=== PATIENT | male | born 1960 | race African-American/Black ===

== ENCOUNTER 2020-08-12 15:13 | Inpatient (IN) | payer OTHER ==
[~2020-08-12] VITALS: Ht 190.5 cm; Wt 56.7 kg
[2020-08-12 15:14] VITALS: BP 100/63
--- NOTE | 2020-08-12 15:32 | NUR ---
tried to find out the reason for placement for tube from [facility] but they did not know why it was placed or when. tried speaking with [facility] where pt was before [facility] and they were unable to answer the questions as medical records was closed
--- NOTE | 2020-08-12 16:14 | EKG ---
[address] [address] ELECTROCARDIOGRAM REPORT Name: DARNELL SORENSEN Room #: [facility].#: [id number] Admission: Attend Phys: Discharge: Date of : 58 Report #: [id number] 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 : 1960 Requested By: Jordan Olguin Order Number: [id number] MD: Jules Ritter Measurements Intervals [place] Rate: 143 P: 0 ND: 50 QRS: 43 QRSD: 148 T: 83 QT: 355 QTc: 548 Interpretive Statements Sinus tachycardia vs Atrial Flutter 2:1 block Left bundle branch block Baseline wander in lead(s) V2 No previous ECG available for comparison Electronically Signed On 08-12-2020 16:14:11 SUPERVISOR INSTRUMENT REPAIR by Jules Ritter [email or web address] <ELECTRONICALLY SIGNED> By: Jules Ritter MD, [facility] 08/12/20 1614 09 1610 Jules Ritter MD, FACC /EPI
[2020-08-12 16:23] LABS: ABSOLUTE NEUTROPHILS 6.6 thou/uL (1.4-8.2); BASOPHILS 0.3 % (0.0-2.0); EOSINOPHILS 0.5 % (0.0-3.0); HEMATOCRIT 38.3 % (42.0-52.0); HEMOGLOBIN 12.4 gm/dL (14.0-18.0); LYMPHOCYTES 13.5 % (24.0-44.0); MCH 26.1 pg (26.0-34.0); MCHC 32.3 g/dL (28.0-37.0); MONOCYTES 7.2 % (1.0-8.0); PLATELET COUNT 240 thou/uL (150-400); POLYS 78.5 % (36.0-66.0); RBC 4.72 mil/uL (4.50-6.00); RDW 16.9 % (10.5-14.5); WBC 8.4 thou/uL (4.0-11.0)
[2020-08-12 16:30] LABS: CALCIUM 9.4 mg/dL (8.5-10.1); CREATININE 0.7 mg/dL (0.7-1.3); POTASSIUM 4.5 mmol/L (3.5-5.1)
[2020-08-12 16:35] LABS: TOTAL BILIRUBIN 0.6 mg/dL (0.2-1.0); TOTAL PROTEIN 7.9 g/dL (6.4-8.2)
[2020-08-12 16:38] LABS: URINE BILIRUBIN NEGATIVE (Negative); URINE BLOOD 2+ (Negative); URINE CLARITY CLEAR; URINE COLOR YELLOW; URINE GLUCOSE-RANDOM* NEGATIVE (Negative); URINE KETONES NEGATIVE (Negative); URINE NITRITE-REFLEX NEGATIVE (Negative); URINE PROTEIN (DIPSTICK) 1+ (Negative); URINE SPECIFIC GRAVITY 1.025 (1.005-1.035)
[2020-08-12 16:41] LABS: URINE LEUKOCYTES-REFLEX 2+ (Negative)
[2020-08-12 16:46] LABS: CASTS None Seen /LPF (None Seen); SQUAMOUS 0-3 Few /LPF (0-3); URINE WBC-REFLEX >25 Many /HPF (0-5); YEAST-REFLEX Present (None Seen)
[2020-08-12 16:47] LABS: URINE RBC 0-2 Rare /HPF (0-2)
[2020-08-12 16:48] LABS: CRYSTALS None Seen /LPF (None Seen)
[2020-08-12] MEDS ORDERED: TYLENOL325 MG PER TUBE (17:10)
[2020-08-12] MEDS ORDERED: CHILDREN'S ASPI81 MG PER TUBE (17:11)
[2020-08-12] MEDS ORDERED: LIORESAL 10 MG10 MG PER TUBE (17:11)
[2020-08-12] MEDS ORDERED: BACLOFEN5 MG PER TUBE (17:12)
[2020-08-12] MEDS ORDERED: ENOXAPARIN40 MG/0.4 SUBQ (17:12)
[2020-08-12] MEDS ORDERED: ENULOSE10 GM/15 M PER TUBE (17:13)
[2020-08-12] MEDS ORDERED: GUAIFENESIN DM S5 ML PER TUBE (17:15)
[2020-08-12] MEDS ORDERED: METOCLOPRAM5 MG/5 M2 PER TUBE (17:16)
[2020-08-12] MEDS ORDERED: MIDODRINE HCL10 MG PER TUBE ×2 (17:16→17:17)
[2020-08-12] MEDS ORDERED: MULTIVITAM9 MG/15 M1 PER TUBE ×2 (17:18)
[2020-08-12] MEDS ORDERED: FISH OIL 1,001000 M3 PER TUBE (17:18)
[2020-08-12] MEDS ORDERED: ONDANSETRON HCL4 M2 PER TUBE (17:19)
[2020-08-12] MEDS ORDERED: PREVACID30 MG PER TUBE (17:20)
[2020-08-12] MEDS ORDERED: ULTRAM 50MG TAB50 MG PER TUBE (17:21)
[2020-08-12 19:36] LABS: FOLIC ACID 17.2 ng/mL (8.6-58.9)
[2020-08-12 20:33] VITALS: BP 95/59
[2020-08-12 21:13] VITALS: BP 98/66
[2020-08-12 21:45] VITALS: BP 96/53
[2020-08-13 00:09] VITALS: BP 87/52
--- NOTE | 2020-08-13 05:55 | NUR ---
PT ARRIVED TO ROOM 210 FROM ER, ON BED REST WITH Q 2 HR TURNS, C/O ABD PAIN GIVEN PRN PAIN MEDS THRU THE NOC, NPO FOR POSSIBLE SURG. SPOKE WITH MOTHER AND UPDATED ON CONDITION, STATES SHE WAS TAKING CARE OF PT TILL HE WAS HOSPITALIZED IN [place], PLAN SWALLOW EVAL AND POSSIBLE VIDEO SWALLOW, G TUBE CAPPED FLUIDS INFUSING THRU L UPPER ARM PICC CXR DONE TO VERIFY PLACEMENT,VSS WILL CON'T TO MONITOR PER PPOC,
[2020-08-13 07:11] VITALS: BP 96/53
[2020-08-13 07:13] LABS: ABSOLUTE NEUTROPHILS 3.1 thou/uL (1.4-8.2); BASOPHILS 0.8 % (0.0-2.0); EOSINOPHILS 1.8 % (0.0-3.0); HEMOGLOBIN 9.3 gm/dL (14.0-18.0); LYMPHOCYTES 21.9 % (24.0-44.0); MCH 26.2 pg (26.0-34.0); MCV 81.9 fL (80.0-100.0); MONOCYTES 8.1 % (1.0-8.0); PLATELET COUNT 170 thou/uL (150-400); POLYS 67.4 % (36.0-66.0); RBC 3.54 mil/uL (4.50-6.00); RDW 16.7 % (10.5-14.5); WBC 4.5 thou/uL (4.0-11.0)
[2020-08-13 07:27] LABS: CREATININE 0.6 mg/dL (0.7-1.3); MAGNESIUM 1.7 mg/dL (1.8-2.4); POTASSIUM 4.4 mmol/L (3.5-5.1)
[2020-08-13 07:36] LABS: CALCIUM 7.4 mg/dL (8.5-10.1)
--- NOTE | 2020-08-13 11:27 | NUR ---
If able to use pts feeding tube recommend start jevity 1.5 at goal of 55ml/hr
[2020-08-13 12:05] VITALS: BP 108/70
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
[2020-08-13 15:29] VITALS: BP 91/56
[2020-08-13 19:33] VITALS: BP 93/58
--- NOTE | 2020-08-13 19:47 | NUR ---
RECEIVED PT'S CARE AROUND 0735; PT. ON BED; ALERT; DURING AM ASSESSMENT AOX4; FORGETFUL THROUGH THE DAY; AM MEDICATIONS GIVEN; CRITICAL LOW CA; PHYSICIAN NOTIFIED; LOW MG; PHYSICIAN NOTIFIED; NOTICED DX SEPTIS; NO SANTIAGO IN ORDER TO MEASURE ACCURATE OUTPUT; PHYSICIAN NOTIFIED; ORDERS RECEIVED; LOW BG DURING AM AND LUNCH TIME; PRN MEDICATION IV GIVEN; PHYSICIAN NOTIFIED; ORDERS ON PLACED; ST ON THE MONITOR; PER SURGEON OK TO START FEEDINGS; DR. VICENTE NOTIFIED; FEEDING STARTED BASED ON DIETITIAN RECOMENDATIONS; FEEDING STARTED AT 35 ML/H AT 1800; RECEIVED CALL FROM MOTHER; UPDATED ABOUT POC AND PT'S HEALTH STATUS; PT. REQUESTED TO CALL MOM AND BROTHER; EDUCATED ABOUT VISITOR POLICY; REQUESTED DESIGNATED VISITOR MOTHER; SUPERVISOR TRAVEL INFORMATION CENTER [facility]; PPN D/C AFTER ONE HOUR OF FEEDING STARTED; PASSED ON REPORT; ASSESSMENT CHARGED; FOLLOWING POC; PASSED ON REPORT;
[2020-08-14 03:52] VITALS: BP 100/58
[2020-08-14 07:00] VITALS: BP 108/55
--- NOTE | 2020-08-14 07:56 | NUR ---
RECIEVED CARE OF THIS PATIENT AT 1900. PATIENT ALERT AND ORIENTED X4. BRI IS A QUADPLEGIC. HAS LITTLE USE OF HIS L HAND. HAS A BILLIARY DRAIN AND A SANTIAGO. REMAINS NPO. HAS PRAFA BOOTS ON. HAS 2L PICC IN HIS CASEY. PEG WITH JEVITY 1.5 AT 45. C/O PAIN, MED GIVEN. SLEPT OFF AND ON DURING NIGHT.
--- NOTE | 2020-08-14 10:04 | NUR ---
SPOKE WITH CURRENCY COUNTER ([place]) FROM [facility] WHO CONFIRMED THE PATIENT WAS EVALUATED ON 04/20/21 FOR SWALLOW WITH RECOMMENDATIONS TO CONTINUE TUBE FEEDINGS PRIMARY SOURCE OF NUTRITIONAL INTAKE BUT ALLOW SIPS OF LIQUID FOR COMFORT. THEN SPOKE WITH LINNETTE AT [facility] WHO ALSO CONFIRMED THESE RECOMMENDATIONS. THE PATIENT WAS NPO BUT ALLOWED SIPS OF WATER BY NURSING AT HIS SNF BUT WAS DOING TRIALS OF PUREED WITH SPEECH PATHOLOGIST ONLY. THE PATIENT WILL BE KEPT NPO DURING THIS LOS AND WILL CONTINUE THERAPEUTIC TRIALS WITH ST. A VIDEOSWALLOW WOULD BE RECOMMENDED BUT MAY PROVE DIFFICULT DUE TO KYPHOTIC POSITIONING CHALLENGES.
[2020-08-14 10:16] LABS: HEMATOCRIT 34.8 % (42.0-52.0); HEMOGLOBIN 11.1 gm/dL (14.0-18.0); MCH 25.9 pg (26.0-34.0); MCHC 31.8 g/dL (28.0-37.0); MCV 81.5 fL (80.0-100.0); RBC 4.27 mil/uL (4.50-6.00); RDW 16.5 % (10.5-14.5); WBC 5.2 thou/uL (4.0-11.0)
[2020-08-14 10:45] LABS: % SATURATION 7 % (20-39); ALBUMIN 2.3 g/dL (3.4-5.0); CALCIUM 8.3 mg/dL (8.5-10.1); CREATININE 0.6 mg/dL (0.7-1.3); IRON 13 ug/dL (65-175); MAGNESIUM 2.1 mg/dL (1.8-2.4); POTASSIUM 3.4 mmol/L (3.5-5.1); TIBC 180 ug/dL (250-450); TOTAL BILIRUBIN 0.4 mg/dL (0.2-1.0); TOTAL PROTEIN 6.3 g/dL (6.4-8.2)
[2020-08-14 11:30] VITALS: BP 128/59; BP 128/62
--- NOTE | 2020-08-14 13:55 | NUR ---
[facility] being updated today via phone and fax. Advised of possible weekend dc. [employer] form on the chart as he will need ambulance transport. Pt has been restarted on his enteral feedings and off tpn. Picc line to be dc'd at in. Pt will need ins auth for SNF. DC community development planner to submit per [facility] today and request [place] due the same. Covid test is pending. Pt's mother will need confirmation call on day of dc. Care team updated. Records were rec'd from both [facility] and [facility]. Will follow.
--- NOTE | 2020-08-14 14:11 | NUR ---
[facility]ED CL[facility] SPOKE WITH MICHAEL SHE SAID [facility]OTH IN [place] SHE WILL GIVE THEM THE MESSAGE TO SUBMIT FOR AUTH FOR SKILLED PT DC READY OVER THE WEEKEND. ALSO FAXED REFERRAL TO [facility] RECEIVED CONFIRMATION.
[2020-08-14 16:00] VITALS: BP 124/62
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
[2020-08-14 20:45] VITALS: BP 114/63
--- NOTE | 2020-08-15 03:42 | NUR ---
Assumed pt care at 1900. Pt is alert and laying in bed. No sign of distress noted in pt. Pt verbalizes pain. Pain med administered upon request. Fall precaution in place. Vital signs stable. Assessment completed and documented. Scheduled meds administered to pt. No acute events overnight. Continue to monitor. No further needs at this time.
[2020-08-15 04:45] VITALS: BP 143/78
[2020-08-15 06:00] LABS: HEMATOCRIT 33.9 % (42.0-52.0); HEMOGLOBIN 10.9 gm/dL (14.0-18.0); MCH 26.4 pg (26.0-34.0); MCHC 32.2 g/dL (28.0-37.0); MCV 82.2 fL (80.0-100.0); RBC 4.12 mil/uL (4.50-6.00); RDW 16.9 % (10.5-14.5); WBC 5.8 thou/uL (4.0-11.0)
[2020-08-15 06:13] LABS: CALCIUM 8.9 mg/dL (8.5-10.1); CREATININE 0.6 mg/dL (0.7-1.3); POTASSIUM 3.7 mmol/L (3.5-5.1)
[2020-08-15 07:18] VITALS: BP 115/64
--- NOTE | 2020-08-15 11:56 | NUR ---
Assumed pt care at 7am.Pt in bed resting.Assessment completed.vss.Pt c/o knees pain rated 3/10.Fentanyl ivp given with relief.Repositioned pt q2h for comfort.Tube feeding in progress.No further c/o at present will continue to monitor.
[2020-08-15 15:01] VITALS: BP 112/73
[2020-08-15 20:38] VITALS: BP 119/67
[2020-08-16 05:01] VITALS: BP 104/57
--- NOTE | 2020-08-16 05:34 | NUR ---
Pt. rested quietly at intervals during the night when checked on during frequent rounds. He has been given ivp pain meds (see emar) with some relief of pain noted. G-tube is patent. Pt. turned and repositioned and frequent mouth care given. Bed alarm is on.
[2020-08-16 06:00] LABS: HEMATOCRIT 34.2 % (42.0-52.0); HEMOGLOBIN 10.9 gm/dL (14.0-18.0); MCH 26.4 pg (26.0-34.0); MCHC 31.9 g/dL (28.0-37.0); MCV 82.8 fL (80.0-100.0); RBC 4.13 mil/uL (4.50-6.00); RDW 17.4 % (10.5-14.5); WBC 8.2 thou/uL (4.0-11.0)
[2020-08-16 06:45] LABS: CREATININE 0.6 mg/dL (0.7-1.3); MAGNESIUM 2.3 mg/dL (1.8-2.4); POTASSIUM 3.7 mmol/L (3.5-5.1)
[2020-08-16 07:29] VITALS: BP 96/51
--- NOTE | 2020-08-16 13:54 | NUR ---
Assumed pt care at 7am.Pt in bed sound asleep till 8a.Assessment completed.vss oral care done and lip balm applied.Repositioned pt for comfort q2h in bed. Pt c/o back pain rated 3/10.Fentanyl ivp given with relief.Dr Burns and Reena here,no new order noted.Mom here to vist and Dr Burns updated her. Pt will possibly dc to [place] in am if stable.No further c/o.Will continue to monitor.
[2020-08-16 15:07] VITALS: BP 96/53
[2020-08-16 20:07] VITALS: BP 98/62
--- NOTE | 2020-08-17 05:00 | NUR ---
Pt. rested in bed and becomes inpatient at times. He will yell out at times with needs. Pt. able to use call light and was encouraged to do so. He constantly is asking for water and oral mouth care given frequently. G-tube plugged this am and unable to unplug it. Gloria WILKES called and notified. Dressing to biliary drain and peg tube site cleansed with normal saline and clean dressing applied. Areas had small amount of yellowish colored drainage. Pt. turned and repositioned. Bed alarm is on.
[2020-08-17 05:26] LABS: HEMATOCRIT 33.9 % (42.0-52.0); HEMOGLOBIN 10.8 gm/dL (14.0-18.0); MCH 26.5 pg (26.0-34.0); MCV 82.7 fL (80.0-100.0); RBC 4.1 mil/uL (4.50-6.00); RDW 17.1 % (10.5-14.5); WBC 8.3 thou/uL (4.0-11.0)
[2020-08-17 05:53] LABS: CALCIUM 8.7 mg/dL (8.5-10.1); CREATININE 0.5 mg/dL (0.7-1.3); POTASSIUM 3.6 mmol/L (3.5-5.1)
[2020-08-17 07:05] VITALS: BP 102/62
--- NOTE | 2020-08-17 08:05 | NUR ---
Call placed to Dr. Valles in referance of g-tube being pugged.
--- NOTE | 2020-08-17 08:35 | NUR ---
Consider discontinue ivf and start water flushes of 250 ml every 6hr
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
--- NOTE | 2020-08-17 13:32 | NUR ---
Assumed pt care this am, VS stable received NPO with a FC, Gtube draing green liquid, J tube that is plugged since pm shift ad per om nurse. J tube could not be flushed. Q2 turns done, pt is very contracted and very limited movement. Informed surgeons, seen by Dr. Barlow consult for IR for J tube exchange. NPO maintained, tube feeding on hold since route is not available. Wound care done and dressing change made.
--- NOTE | 2020-08-17 14:45 | NUR ---
UPDATES SENT TO [facility] FOR SKILLED AUTH FOR PT TO RETURN TO [facility]. PT REMAINS NPO AND IS DOING TRIALS WITH [facility] FOLLOWING REGARDING DC PLANNING.
[2020-08-17 15:42] VITALS: BP 112/67
[2020-08-17 20:27] VITALS: BP 116/68
--- NOTE | 2020-08-18 04:26 | NUR ---
PT AWAKE AND ALERT. MOSTLY C/O PAIN TO RIGHT KNEE AND LEG.REPOSITIONING PROVIDED-NIECY MATTRESS. SANTIAGO TO D/D WITH DARK YELLOW OUTPUT.C/O DRY MOUTH, ORAL CARE PROVIDED.IVF INFUSING. FEEDING TUBE REMAINS PLUGGED UP.BILIARY DRAIN PATENT-GREENISH OUTPUT. AFEBRILE.
[2020-08-18 05:05] LABS: CALCIUM 8.9 mg/dL (8.5-10.1); CREATININE 0.6 mg/dL (0.7-1.3); MAGNESIUM 1.7 mg/dL (1.8-2.4); POTASSIUM 3.3 mmol/L (3.5-5.1)
[2020-08-18 05:07] LABS: HEMATOCRIT 32.5 % (42.0-52.0); HEMOGLOBIN 10.2 gm/dL (14.0-18.0); MCH 26.2 pg (26.0-34.0); MCHC 31.4 g/dL (28.0-37.0); MCV 83.3 fL (80.0-100.0); RBC 3.9 mil/uL (4.50-6.00); RDW 17.1 % (10.5-14.5); WBC 5.3 thou/uL (4.0-11.0)
[2020-08-18 07:53] VITALS: BP 100/57
--- NOTE | 2020-08-18 13:18 | NUR ---
CM SPOKE WITH RAYSA WITH [facility] AND SHE INIDCATED THAT BASED ON THE CLIICAL THEY HAD RECEIVED SHE WOULDN'T AUTH SKILLED THAT PT DOESN'T APPEAR TO HAVE A SKILLABLE NEED. SHE INDICATED THAT EITHER THERAPY COULD SEE PT AND EVAL COULD BE FAXED TO HER FOR REVIEW OR PT COULD DC TO [facility] AND HAVE EVALS DONE THERE AND THEY COULD PERSUE AUTH. PT EVAL ORDERED CM TO FAX ONCE ENTERED. CM TO FOLLOW INDICATED WITH DC PLANNING.
[2020-08-18 15:53] VITALS: BP 131/64
[2020-08-18 20:08] VITALS: BP 115/68
--- NOTE | 2020-08-18 20:09 | NUR ---
Received awake on bed. Due medications given as prescribed. Vital signs stable. On room air. On telemetry; no complains and signs of chest pain, crushing sensation and heaviness. Assisted in ADLS. On blood sugar monitoring, taken and recorded accordingly; with low blood sugar this AM- given D50- rechecked WNL. Mouth care done; on nothing per orem- pt aware. With J tube- still clogged- IR RN seen patient today, able to unclog this PM- Tube feeding resumed as ordered. With biliary drain in place- output measured and recorded accordingly. Wuth sands in place- output measured and recorded accordingly; draining well. With 2 lumen PICC line at L upper arm in place- NS at 100cc/hr, infusing well. With redness at sacrum- pt turned regularly- Z guard applied as ordered. Complained of pain, due PRN pain meds given as prescribed. IV correction of MG and K done as ordered. Pt seen and examined by [facility] hospitalist re: plan for diet- as per Dr Burns to leave current regimen for patient, may do family meeting re: plan of care. To continue monitoring patient.
[2020-08-19 07:28] VITALS: BP 115/70
--- NOTE | 2020-08-19 09:13 | NUR ---
ASSUME CARE 1900. PT/VITALS STABLE. INTERMITTENT GENERALIZED PAIN NOTED. ASSESSMENT CHARTED. POOR PROGRESS WITH HEALING. JEVITY 1.5 AT GOAL RATE 55NL/PT TOLERAING WELL. BILIARY DRAINAGE AT 750 THROUGH THE NIGHT. SR ON MONITOR. PLAN IS FOR MD TO DISCUSS WITH FAMILY ABOUT QUALITY OF LIFE AND POC. WILL CONTIUE TO MONITOR AND FOLLOW WITH POC
--- NOTE | 2020-08-19 11:03 | NUR ---
RAYSA WITH [facility] CALLED THIS AM AND INDICATED THAT THEY WANTED A [facility]. CM PROVIDED PHYSICIAN WITH INFO TO CALL THE PEER TO PEER WELL A PRINT OUT OF THE PT EVAL FROM YESTERDAY. HE'S TO CALL [facility] NEEDS TO BE CALLED BY 2:13PM TODAY. MU FOLLOWING REGARDIGN DC PLANNING. PT WILL RETURN TO [facility] THIS DAY.
[2020-08-19 14:46] VITALS: BP 117/75
[2020-08-19] MEDS ORDERED: IRON325 PO (15:06)
--- NOTE | 2020-08-19 16:10 | NUR ---
PT DISCHARGING TODAY TO [facility] FAXED DC ORDERS/SUMMARY TO FACILITY SPOKE WITH AKIRA IN ADM SHE RECEIVED ORDERS AND ARRANGED TRANSPORT BY [facility] FOR [phone]. NOTIFIED PT'S MTR OF DC AND TIME OF TRANSPORT. UNIT NOTIFIED AND CHART COPY PER US. RN TO CALL REPORT TO [phone].
--- NOTE | 2020-08-19 20:33 | NUR ---
Received awake on bed. Due medications given as prescribed. On telemetry; no complains and signs of chest pain, crushing sensation and heaviness. Assisted in ADLs. Oral care done. On strict NPO- pt reminded and aware. On blood sugar monitoring, taken and recorded accordingly. With J tube in place, flushing well; on Jevity 1.5 at 55mls/hr, infusing well; H20 flushes done as ordered. With biliary drain in place- output measured and recorded accordingly. With sands in place, draining well; output measured and recorded accordingly. With L upper arm PICC line in place, NS at 100cc/hr, infusing well. With wound at sacrum, Z guard applied, pt turned regularly; wound photo taken today. Complained of pain, due PRN pain meds given as prescribed. Pt seen and examined by Dr Burns, discharge orders made- CM aware. Verified with Dr Burns re: PICC- to remove prior to discharged- removed as per protocol; no bleeding noted post removal. Transport set up at 1700; pt's mother aware as per CM. Pt brought out of the unit via stretcher with his belongings; transferred safely. Pt fetched by transport staff, chart copy given. Report given to Staff [facility] [place]. Patient discharged.
== END 2020-08-19 19:38 | DRG 871 ==
LOC: ER 15:13 → 2N 17:57 → EROBS 17:57 → 2N 17:57 → EDBD 17:57 → 2N 21:21 → 4W 08-15 07:15
PROVIDERS: Nurse Practitioner; Physician Assistant; ADMIT Internal Medicine; ATTEND Internal Medicine
DX: A41.9 Sepsis, unspecified organism (principal); E43 Unspecified severe protein-calorie malnutrition; R53.2 Functional quadriplegia; K94.13 Enterostomy malfunction; I69.359 Hemiplegia and hemiparesis following cerebral infarction affecting unspecified side; R65.20 Severe sepsis without septic shock; F41.9 Anxiety disorder, unspecified; N30.90 Cystitis, unspecified without hematuria; R13.10 Dysphagia, unspecified; L89.152 Pressure ulcer of sacral region, stage 2; E83.42 Hypomagnesemia; E83.51 Hypocalcemia; D64.9 Anemia, unspecified; Y83.8 Other surgical procedures as the cause of abnormal reaction of the patient, or of later complication, without mention of misadventure at the time of the procedure; Y82.8 Other medical devices associated with adverse incidents; Z79.82 Long term (current) use of aspirin; Z79.899 Other long term (current) drug therapy; Z86.718 Personal history of other venous thrombosis and embolism; Z90.49 Acquired absence of other specified parts of digestive tract; Y92.89 Other specified places as the place of occurrence of the external cause; Z99.3 Dependence on wheelchair; Z20.822 Contact with and (suspected) exposure to COVID-19
CPT/HCPCS: 10045; 10047; 10081

== ENCOUNTER 2020-08-20 10:55 | Emergency (ER) | payer OTHER ==
[~2020-08-20] VITALS: Ht 190.5 cm; Wt 68.0 kg
[~2020-08-20 10:55] MED LIST: BACLOFEN5 MG PER TUBE; CHILDREN'S ASPI81 MG PER TUBE; ENOXAPARIN40 MG/0.4 SUBQ; ENULOSE10 GM/15 M PER TUBE; FISH OIL 1,001000 M3 PER TUBE; GUAIFENESIN DM S5 ML PER TUBE; IRON325 PO; LIORESAL 10 MG10 MG PER TUBE; METOCLOPRAM5 MG/5 M2 PER TUBE; MIDODRINE HCL10 MG PER TUBE; MULTIVITAM9 MG/15 M1 PER TUBE; ONDANSETRON HCL4 M2 PER TUBE; PREVACID30 MG PER TUBE; TYLENOL325 MG PER TUBE; ULTRAM 50MG TAB50 MG PER TUBE
[2020-08-20 12:42] VITALS: BP 109/60
== END 2020-08-20 17:20 | disposition home or self-care (01) ==
LOC: ER 10:55
DX: K94.23 Gastrostomy malfunction (principal); I50.9 Heart failure, unspecified; Z79.82 Long term (current) use of aspirin; Z79.899 Other long term (current) drug therapy

== ENCOUNTER 2020-08-25 15:05 | Inpatient (IN) | payer OTHER ==
[~2020-08-25] VITALS: Ht 190.5 cm; Wt 56.8 kg
[2020-08-25 15:05] VITALS: BP 94/66
[2020-08-25 15:56] LABS: ABSOLUTE NEUTROPHILS 9.7 thou/uL (1.4-8.2); BASOPHILS 0.5 % (0.0-2.0); EOSINOPHILS 0.1 % (0.0-3.0); HEMATOCRIT 44.9 % (42.0-52.0); HEMOGLOBIN 14.8 gm/dL (14.0-18.0); LYMPHOCYTES 15.9 % (24.0-44.0); MCHC 32.9 g/dL (28.0-37.0); MONOCYTES 8.2 % (1.0-8.0); PLATELET COUNT 732 thou/uL (150-400); POLYS 75.3 % (36.0-66.0); RBC 5.47 mil/uL (4.50-6.00); RDW 16.7 % (10.5-14.5); WBC 12.9 thou/uL (4.0-11.0)
[2020-08-25 16:06] LABS: CALCIUM 10.2 mg/dL (8.5-10.1); CREATININE 1.3 mg/dL (0.7-1.3)
[2020-08-25 16:12] LABS: ALBUMIN 3.1 g/dL (3.4-5.0); TOTAL BILIRUBIN 0.6 mg/dL (0.2-1.0); TOTAL PROTEIN 9.9 g/dL (6.4-8.2)
[2020-08-25 17:19] LABS: URINE BILIRUBIN NEGATIVE (Negative); URINE BLOOD 3+ (Negative); URINE CLARITY CLEAR; URINE COLOR YELLOW; URINE GLUCOSE-RANDOM* NEGATIVE (Negative); URINE KETONES NEGATIVE (Negative); URINE NITRITE-REFLEX NEGATIVE (Negative); URINE PROTEIN (DIPSTICK) 3+ (Negative); URINE SPECIFIC GRAVITY >= 1.030 (1.005-1.035)
[2020-08-25 17:20] LABS: URINE LEUKOCYTES-REFLEX 1+ (Negative)
[2020-08-25 17:51] LABS: CASTS None Seen /LPF (None Seen); CRYSTALS None Seen /LPF (None Seen); MUCUS 0-3 Light strn/LPF (None Seen); SQUAMOUS 0-3 Few /LPF (0-3); URINE RBC >20 Many /HPF (0-2); URINE WBC-REFLEX >25 Many /HPF (0-5)
[2020-08-25 19:46] VITALS: BP 94/59
[2020-08-25 20:11] VITALS: BP 84/40
[2020-08-26] VITALS: BP 92/55
[2020-08-26 02:10] LABS: HEMATOCRIT 39.7 % (42.0-52.0); MCH 25.9 pg (26.0-34.0); MCHC 31.3 g/dL (28.0-37.0); MCV 82.8 fL (80.0-100.0); RBC 4.8 mil/uL (4.50-6.00); RDW 16.1 % (10.5-14.5); WBC 9.2 thou/uL (4.0-11.0)
[2020-08-26 02:15] LABS: ALBUMIN 2.6 g/dL (3.4-5.0); CALCIUM 8.4 mg/dL (8.5-10.1); CREATININE 1.1 mg/dL (0.7-1.3); POTASSIUM 4.2 mmol/L (3.5-5.1); TOTAL BILIRUBIN 0.5 mg/dL (0.2-1.0); TOTAL PROTEIN 7.5 g/dL (6.4-8.2)
[2020-08-26 02:31] LABS: HEMOGLOBIN 12.4 gm/dL (14.0-18.0)
[2020-08-26 04:33] VITALS: BP 116/68
--- NOTE | 2020-08-26 07:17 | EKG ---
[address] [address] ELECTROCARDIOGRAM REPORT Name: DARNELL SORENSEN Room #: 210-P ADM IN M.R.#: [id number] Admission: 08/25/20 Attend Phys: Hieu Burns MD Discharge: Date of : 58 Report #: [id number] [facility] ED Test Date: 2020-08-25 Test Time: 15:34:58 Pat Name: DARNELL SORENSEN Department: Room: 210 Gender: M Practice Director: CAMILLA : 1960 Requested By: Eugene Stiles Order Number: [id number] MD: Jules Ritter Measurements Intervals [place] Rate: 140 P: 81 ME: 117 QRS: 75 QRSD: 133 T: 94 QT: 394 QTc: 602 Interpretive Statements Sinus tachycardia Vs. Atrial FLutter Left atrial enlargement IVCD, consider atypical LBBB Compared to ECG 08/12/2020 16:10:03 Atrial abnormality now present Electronically Signed On 08-26-2020 7:16:51 BUTTON BUTTONHOLE MARKER by Jules Ritter [email or web address] <ELECTRONICALLY SIGNED> By: Jules Ritter MD, [facility] 08/26/20 0716 1534 1534 Jules Ritter MD, [facility] /EPI
[2020-08-26 07:45] VITALS: BP 131/88
--- NOTE | 2020-08-26 10:34 | NUR ---
DR GUZMAN MADE ROUNDS THIS AM AND INFORMED THIS NURSE THAT THE GTUBE NEEDS TO BE SECURED TO ABDOMEN WITH TAPE, TUBE SECURED AT THIS TIME AND DRESSING PROTECTING THE SKIN. PT WAS REPOSITIONED AND DR HAD NO CONCERNS REGARDING FIRM ABDOMEN, PT HAD A LIGHT COLORED STOOL THIS AM AND BOWEL SOUNDS ARE ACTIVE.
[2020-08-26 12:00] VITALS: BP 117/67
--- NOTE | 2020-08-26 12:01 | NUR ---
Case opened to follow for dc planning. Pt known to cm from recent admission and return to [facility]. His insurance denied SNF auth request and the pt is living there as a alf care resident. He is A&Ox 3 this morning and notes his brother Kingsley will be in to visit today and his is his dpoa for hc. He also confirms that his mother Nikolay is an emergency contact as well as he lived with her prior to his admission to [facility] and prior stay at [facility] with a CVA. He is being treated for severe sepsis/uti/gtube dysfunction. Surgery has seen him this morning and adjusted his gtube. Pt gets enteral feedings through his J tube. Dc airport planner to fax updated to [facility]. Message left with admissions to confirm they are holding his bed. He is agreeable to returning there when medically stable. Will follow.
--- NOTE | 2020-08-26 13:29 | NUR ---
FAXED CLINICAL UPDATES TO [facility]. SONNY CONFIRM THEY RECEIVED. BAUDETTE N & R: P [phone]; FAX [phone]
[2020-08-26 15:30] VITALS: BP 135/74
[2020-08-26] MEDS ORDERED: XALATAN2.5 ML OPHTHALMIC (15:49)
--- NOTE | 2020-08-26 18:03 | NUR ---
PT RESTING AT THIS TIME, G TUBE AND J TUBE SECURED, PT HAD A NEW CATHETER PLACED D/T CATHETER LEAKING AND CAUSING PAIN TO PT. PT TOLERATED INSERTION WELL, BAG DEPENDENT AND URINE DARK YELLOW COLOR. PT NOTED TO HAVE A OPEN AREA TO COCCYX THE SIZE OF A DIME AND A FLUID FILLED BLISTER TO LEFT THIGH, PILLOWS USED FOR REPOSITIONING AND PT HAS BEEN REPOSITIONED Q2HRS. PT FAMILY UPDATED. PT ALERT X3 AND ABLE TO VOICE WANTS AND CONCERNS, PT USES CALL LIGHT APPROPRIATLY. ICE CHIPS TOLERATED WILL. G TUBE CONT TO DRAIN PCP AWARE.
[2020-08-26 20:12] VITALS: BP 103/66
--- NOTE | 2020-08-26 23:49 | NUR ---
PATIENTS CARE WERE ASSUMED AT SHIFT CHANGE. PATIENT WAS ASSESSED AND MEDS WERE PASSED. PATIENT HAS IMPROVED ALOT SINCE ADMISSION. PATIENT HAD A LARGE BM THIS SHIFT. PATIENT HAS GOOD COMMUNICATION WITH HIS FAMILY. ROUNDS WERE MADE, THE BED IS IN A LOW AND LOCKED POSITION
[2020-08-27] VITALS: BP 100/52
[2020-08-27 05:51] LABS: HEMATOCRIT 31.3 % (42.0-52.0); HEMOGLOBIN 9.8 gm/dL (14.0-18.0); MCH 25.9 pg (26.0-34.0); MCHC 31.3 g/dL (28.0-37.0); MCV 82.5 fL (80.0-100.0); RBC 3.79 mil/uL (4.50-6.00); RDW 16.4 % (10.5-14.5); WBC 8.1 thou/uL (4.0-11.0)
[2020-08-27 06:07] LABS: CALCIUM 8.4 mg/dL (8.5-10.1); CREATININE 0.7 mg/dL (0.7-1.3); MAGNESIUM 2.1 mg/dL (1.8-2.4); POTASSIUM 3.5 mmol/L (3.5-5.1)
[2020-08-27 06:13] VITALS: BP 91/51
[2020-08-27 07:10] VITALS: BP 94/60
--- NOTE | 2020-08-27 09:59 | NUR ---
When surgery ok's use of feeding tube, recommend resume pts usual tf of jevity 1.5 at 55ml/hr. Once Na wnl, recommend dc ivf and start water flushes of 250ml every 6hr
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
[2020-08-27 16:00] VITALS: BP 116/58
--- NOTE | 2020-08-27 16:56 | NUR ---
SPOKE WITH ADM AT [facility] THEY DID NOT RECEIVE UPDATE SO REFAXED TO FACILITY AND SPOKE WITH AKIRA IN ADM SHE RECEIVED UPDATE.
--- NOTE | 2020-08-27 17:19 | NUR ---
Message left with admission at [facility] regarding possible dc back to ltc tomorrow. Pt had covid neg test today. Will fax along with his dc orders tomorrow.
--- NOTE | 2020-08-27 18:27 | NUR ---
TUBE FEEDING STARTED AT 1300 PT TOLERATED WELL UNTIL 1730 WHEN STARTED TO HAVE SMALL AMOUNT OF EMESIS. JULES CALL AND NOTED AND ORDERED FOR TUBE FEEDING TO BE STOPPED, KUB AND COMPAZINE 5MG Q4HRS. DR BOND CALLED AND UPDATED REGARDING COMPLICATIONS, HE STATED TO STOP FEEDING UNTIL THE AM AND HE WILL READRESS AND POSSIBLE CONTRAST STUDY WILL NEED TO BE PERFORMED. PT RECEIVED X1 DOSE OF COMPAZINE AND IS RESTING IN BED AT THIS TIME. CONTINUES TO BE REPOSITIONED FREQUENTLY D/T BREAKDOWN. PT HAS NO HAD ANY MORE EMESIS SINCE ADMIN OF PRN MEDICATION. CALL LIGHT IN REACH.
[2020-08-27 20:30] VITALS: BP 91/51
--- NOTE | 2020-08-28 03:52 | NUR ---
ASSESSMENT: PT REMAIN ALERT AND ORIENT TIMES THREE, FORGETFUL AT TIMES. UPPER AND LOWER EXTREMITEIES CONTRACTED. PRAFO BOOTS ON AMRITA FEET. BILIARY DRAIN NOTED WITH GREENISH OUTPUT, SANTIAGO WITH DK YELLOW URINE. PEG TUBE IS STILL CLAMPED. NO BM THIS SHIFT. TF ON HOLD FOR NOW PER DR. BOND UNTIL REDRESSED TODAY. C/O OF ABD PAIN. TRAMADOL GIVEN TIMES ONE. SLOW PROGRESS TOWARDS DC GOALS.
[2020-08-28 04:45] VITALS: BP 94/54
[2020-08-28 05:00] LABS: CALCIUM 8.2 mg/dL (8.5-10.1); CREATININE 0.7 mg/dL (0.7-1.3); MAGNESIUM 1.7 mg/dL (1.8-2.4); POTASSIUM 3.2 mmol/L (3.5-5.1)
[2020-08-28 05:09] LABS: HEMATOCRIT 28.8 % (42.0-52.0); HEMOGLOBIN 9.1 gm/dL (14.0-18.0); MCH 26.2 pg (26.0-34.0); MCHC 31.5 g/dL (28.0-37.0); MCV 83.2 fL (80.0-100.0); RBC 3.46 mil/uL (4.50-6.00); RDW 16.1 % (10.5-14.5); WBC 4.3 thou/uL (4.0-11.0)
--- NOTE | 2020-08-28 07:10 | EKG ---
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1960 Requested By: Hieu Burns Order Number: [id number] MD: Jules Ritter Measurements Intervals [place] Rate: 85 P: 72 [place]: 172 QRS: 63 QRSD: 164 T: 72 QT: 471 QTc: 561 Interpretive Statements Sinus rhythm LAE, consider biatrial enlargement Left bundle branch block Artifact in lead(s) I,II,aVR,aVF,V1,V2,V3,V4,V5,V6 Compared to ECG 08/27/2020 08:47:28 No significant changes Electronically Signed On 08-28-2020 7:10:39 WOOD PROCESSING WORKER by Jules Ritter [email or web address] <ELECTRONICALLY SIGNED> By: Jules Ritter MD, FACC 08/28/20 0710 0951 Jules Ritter MD, FAC /EPI
--- NOTE | 2020-08-28 07:10 | EKG ---
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1960 Requested By: Hieu Burns Order Number: [id number] MD: Jules Ritter Measurements Intervals [place] Rate: 87 P: 75 [place]: 164 QRS: 52 QRSD: 163 T: 74 QT: 469 QTc: 565 Interpretive Statements Sinus rhythm Probable left atrial enlargement Left bundle branch block Compared to ECG 08/25/2020 15:34:58 Sinus tachycardia no longer present Atrial flutter no longer present Electronically Signed On 08-28-2020 7:10:16 RECRUITING MANAGER by Jules Ritter [email or web address] <ELECTRONICALLY SIGNED> By: Jules Ritter MD, [facility] 08/28/20 0710 0847 0847 Jules Ritter MD, [facility] /EPI
[2020-08-28 07:11] VITALS: BP 86/53
--- NOTE | 2020-08-28 09:31 | NUR ---
FAXED NEGATIVE COVID RESULTS TO [facility]. WILL CONFIRM WITH JAMIA/LIAISON THAT SHE RECEIVED AND PATIENT WILL PROBABLY DISCHARGE TODAY, 08/28/20. [facility] P [phone]; FAX [phone]
--- NOTE | 2020-08-28 11:01 | NUR ---
FAXED CLINICAL UPDATES AND NEGATIVE COVID RESULT TO [facility]. PATIENT WILL NOT DISCHARGE TODAY, 08/28/20 BUT PROBABLE DISCHARGE ON 08/31/20. [facility] P [phone]; FAX [phone]
[2020-08-28 11:15] VITALS: BP 94/58
--- NOTE | 2020-08-28 11:57 | NUR ---
Case discussed with the care team. No weekend discharge anticipated d/t ileus. Tube feedings had been held and will slowly restart. Rachele updated per the dc resource management planner who is also sending a clinical update. Will reassess Monday for dc back to their ltc. Pt is not a candidate for SNF and was denied additional SNF days a couple of weeks ago.
[2020-08-28 15:14] VITALS: BP 116/68
[2020-08-28 20:15] VITALS: BP 116/60
[2020-08-29] VITALS (8 sets, daily range): BP systolic 102–115; BP diastolic 61–69
--- NOTE | 2020-08-29 03:42 | NUR ---
Assumed pt care 1900. Pt is alert and oriented with no sign of distress noted. Assessment completed and documented. Verbalizes pain. Pain med administered accordingly. Pt is stable. Scheduled meds administered to patient. Dsicharge pending. No acute events overnight. Continue to monitor pt. No further needs at this time.
[2020-08-29 06:10] LABS: HEMATOCRIT 32.5 % (42.0-52.0); HEMOGLOBIN 10.5 gm/dL (14.0-18.0); MCH 26.2 pg (26.0-34.0); MCHC 32.2 g/dL (28.0-37.0); MCV 81.3 fL (80.0-100.0); RDW 15.9 % (10.5-14.5); WBC 4.3 thou/uL (4.0-11.0)
[2020-08-29 06:14] LABS: CALCIUM 9.1 mg/dL (8.5-10.1); CREATININE 0.6 mg/dL (0.7-1.3); POTASSIUM 3.6 mmol/L (3.5-5.1)
--- NOTE | 2020-08-29 19:08 | NUR ---
PT CARE ASSUMED AT 0700. ASSESSMENTS CHARTED. MEDICATIONS CHARTED. RIJ 3L PICC. SINUS TACHYCARDIA. SANTIAGO. TUBE FEEDING: VITAL AF; 10 ML/HR. FLUSH 50 ML BID. DISCHARGE MONDAY.
[2020-08-30] VITALS (9 sets, daily range): BP systolic 86–114; BP diastolic 56–69
[2020-08-30 04:22] LABS: HEMATOCRIT 35.6 % (42.0-52.0); HEMOGLOBIN 11.2 gm/dL (14.0-18.0); MCHC 31.4 g/dL (28.0-37.0); MCV 82.8 fL (80.0-100.0); RBC 4.3 mil/uL (4.50-6.00); RDW 16.1 % (10.5-14.5); WBC 4.6 thou/uL (4.0-11.0)
[2020-08-30 04:32] LABS: CALCIUM 9.5 mg/dL (8.5-10.1); CREATININE 0.7 mg/dL (0.7-1.3); MAGNESIUM 1.9 mg/dL (1.8-2.4); POTASSIUM 3.6 mmol/L (3.5-5.1)
--- NOTE | 2020-08-30 16:14 | NUR ---
PT CARE ASSUMED AT 0700. ASSESSMENTS CHARTED. MEDICATIONS CHARTED. RIJ 3L PICC. SANTIAGO. SINUS RHYTHM BBB. TUBE FEEDING; VITAL AF; 10 ML/HR. 50 ML FLUSH Q1HR. BISCODYL SUPPOSITORY GIVEN.
[2020-08-31 04:36] VITALS: BP 84/52
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
[2020-08-31 07:06] VITALS: BP 84/58
[2020-08-31 09:48] LABS: HEMATOCRIT 34.7 % (42.0-52.0); HEMOGLOBIN 10.9 gm/dL (14.0-18.0); MCH 25.8 pg (26.0-34.0); MCHC 31.5 g/dL (28.0-37.0); MCV 81.8 fL (80.0-100.0); RBC 4.24 mil/uL (4.50-6.00); RDW 16.1 % (10.5-14.5)
[2020-08-31 10:00] LABS: CREATININE 0.8 mg/dL (0.7-1.3); MAGNESIUM 1.8 mg/dL (1.8-2.4); POTASSIUM 3.9 mmol/L (3.5-5.1)
[2020-08-31 11:28] VITALS: BP 88/53
[2020-08-31 12:48] LABS: URINE BILIRUBIN 3+ (Negative); URINE BLOOD 2+ (Negative); URINE CLARITY TURBID; URINE GLUCOSE-RANDOM* TRACE (Negative); URINE KETONES NEGATIVE (Negative); URINE NITRITE-REFLEX NEGATIVE (Negative); URINE PROTEIN (DIPSTICK) 2+ (Negative); URINE SPECIFIC GRAVITY 1.025 (1.005-1.035); URINE UROBILINOGEN 0.2 E.U./dl (0.2-1.0)
[2020-08-31 12:49] LABS: ICTOTEST (BILI CONFIRMATORY) Positive (Negative); URINE COLOR DARK YELLOW; URINE LEUKOCYTES-REFLEX 2+ (Negative)
[2020-08-31 13:13] LABS: SQUAMOUS 4-10 Moderate /LPF (0-3)
[2020-08-31 13:23] LABS: AMORPHOUS PHOSPHATES Many /LPF (None Seen); CASTS None Seen /LPF (None Seen); URINE RBC 3-10 Few /HPF (0-2); URINE WBC-REFLEX 0-5 Rare /HPF (0-5)
--- NOTE | 2020-08-31 14:54 | NUR ---
FAXED CLINICAL UPDATE TO [facility] RECEIVED CONFIRMATIN AND SPOKE WITH AKIRA IN ADM.
[2020-08-31 15:06] VITALS: BP 86/52
--- NOTE | 2020-08-31 16:52 | NUR ---
RECEIVED PT'S CARE AROUND 0710; PT. ON BED; RESTING WITH EYES CLOSED; EQUAL CHEST RISING NOTICED; SR ON THE MONITOR; DURING AM ASSESSMENT AOX3; FORGETUFUL; NO C/O PAIN; AM MEDICATIONS GIVEN; REPOSITIONED ON BED; PER ORDER DIET; FEEDING AT 10 ML/H; PT. ABLE TO HAVE A BM THIS AM; 08/31/2020; DR. VICENTE AND DR. BOND NOTIFIED; PER DR. BOND INCREASE FEEDING 10 ML Q4H; WATER FLUSHES 150 ML Q6H; ORDERS ON PLACED; NO RESIDUAL THROUGH THE DAY; EDUCATED ABOUT USING CALL LIGHT IN STEP ON YELLING FOR HELP; ST. UNDERSTANDING; REMAINED NOT ABLE TO HAVE ICE CHIPS FREQUENTLY; ST. UNDERSTANDING; PER DR. BOND GIVE ONE SUPPOSITORY; PRN MEDICATION GIVEN; MONITORING; SR ON THE MONITOR; UA COLLECTED; DR. VICENTE NOTIFIED; ORDERS ON PLACED; D/C FLUIDS; ON INSULIN Q6H; MONITORING; ASSESSMENT CHARGED; FOLLOWING POC; WILL PASS ON REPORT;
[2020-08-31 19:16] VITALS: BP 91/58
[2020-09-01 03:57] VITALS: BP 92/62
--- NOTE | 2020-09-01 06:00 | NUR ---
PT HAS SLEPT AT INTERVALS TONIGHT. 250 CC UO AND 1000 CC FROM DRAIN BRAD TUBE FEEDINGS AT 40 CC PER HOUR WITH WATER FLUSHES. PAIN MED X 1 TONIGHT. BRAD ICE CHIPS. PROGRESSING TOWARD GOALS
[2020-09-01 07:14] LABS: HEMATOCRIT 35.8 % (42.0-52.0); HEMOGLOBIN 11.3 gm/dL (14.0-18.0); MCH 25.8 pg (26.0-34.0); MCHC 31.5 g/dL (28.0-37.0); RBC 4.37 mil/uL (4.50-6.00); RDW 16.3 % (10.5-14.5); WBC 5.3 thou/uL (4.0-11.0)
[2020-09-01 07:23] LABS: CALCIUM 8.7 mg/dL (8.5-10.1); CREATININE 0.7 mg/dL (0.7-1.3); MAGNESIUM 1.9 mg/dL (1.8-2.4); POTASSIUM 3.5 mmol/L (3.5-5.1)
[2020-09-01 07:45] VITALS: BP 93/58
[2020-09-01 11:00] VITALS: BP 85/52
[2020-09-01 16:30] VITALS: BP 92/61
[2020-09-01 19:05] VITALS: BP 99/54
--- NOTE | 2020-09-01 20:26 | NUR ---
RECEIVED PT'S CARE AROUND 0740; PT. ON BED; ALERT; SR ON THE MONITOR; DURING AM ASSESSMENT AOX4; FORGETFUL THROUGH THE DAY; AM MEDICATIONS GIVEN; NO C/O PAIN; REMAINED ABOUT NOT SHOUTING AND USING CALL LIGHT; ST. UNDERSTANDING; NEEDS TO BE REMAINED ABOUT IT; REPOSITIONED FROM SIDE TO SIDE THROUGH THE DAY; NO RESIDUALS OVER FEEDING; RECIVED CALL FROM DR. VICENTE REQUESTING DIETITIAN INPUT FOR FEEDING WITH GOAL RATE 45 ML; DIETITIAN CONTACTED; ORDERS ON PLACED; FEEDING CHANGED CLOSE TO 1800; URINE OUTPUT 250 ML THROUGH THE DAY; PHYSICIAN NOTIFIED; ORDERS RECEIVED; BOLUS STARTED; PASSED ON REPORT; ASSESSMENT CHARGED; FOLLOWING POC; PASSED ON REPORT;
[2020-09-02 04:18] VITALS: BP 90/59
[2020-09-02 07:20] VITALS: BP 93/59
--- NOTE | 2020-09-02 07:54 | NUR ---
PT TF TURNED UP TO 45ML/HR AT GOAL NO RESIDUALS THRU THE NOC, FINISHED WATER FLUSHES AND NS BOLUS WITH OUT MUCH CHANGE IN URINE OUTPUT, VSS, PRN PAIN MEDS GIVEN FOR RIGHT KNEE AND HIP PAIN NEEDED, TURNING AND REPOSITIONED Q 2 HRS AND PRN, PROFO BOOTS ON, REPORT GIVEN TO NEXT SHIFT TO CON'T WITH PPOC.
[2020-09-02 12:00] VITALS: BP 106/60
[2020-09-02] MEDS ORDERED: BACTRIM DS TAB1 EACH PO (12:34)
--- NOTE | 2020-09-02 15:07 | NUR ---
PT DISCHARGING TODAY BACK TO [facility] FAXED DC ORDERS/SUMMARY TO FACILITY SPOKE WITH GIOVANA IN ADM HE RECEIVED ORDERS AND ARRANGED TRANSPORT BY [facility] FOR 1500 TODAY. LEFT MSG WITH PT'S BROTHER (GRADY) OF DC AND TIME OF TRANSPORT. UNIT NOTIFIED AND CHART COPY PER US. RN TO CALL REPORT
--- NOTE | 2020-09-02 15:34 | NUR ---
ASSESSMENT CHARTED. PT ALERT AND ORIENTED. VSS. ORDERS GIVEN TO DISCHARGE PT TO SNF. PT AND FAMILY NOTIFIED. REPORT CALLED IN TO THE FACILITY.
== END 2020-09-02 15:39 | DRG 871 ==
LOC: ER 15:05 → 2N 19:36 → EROBS 19:36 → 2N 20:13
PROVIDERS: Emergency Medicine; Nurse Practitioner Family; Specialist; ADMIT Internal Medicine; ATTEND Internal Medicine
PROC: 05HY33Z Insertion of Infusion Device into Upper Vein, Percutaneous Approach (ICD-10-PCS; principal; 2020-08-26)
DX: A41.59 Other Gram-negative sepsis (principal); G82.50 Quadriplegia, unspecified; E44.0 Moderate protein-calorie malnutrition; K94.23 Gastrostomy malfunction; I42.9 Cardiomyopathy, unspecified; E87.0 Hyperosmolality and hypernatremia; L03.311 Cellulitis of abdominal wall; K56.7 Ileus, unspecified; Z16.35 Resistance to multiple antimicrobial drugs; Z68.1 Body mass index [BMI] 19.9 or less, adult; R65.20 Severe sepsis without septic shock; I95.9 Hypotension, unspecified; R13.10 Dysphagia, unspecified; I50.9 Heart failure, unspecified; Z20.822 Contact with and (suspected) exposure to COVID-19; Y83.8 Other surgical procedures as the cause of abnormal reaction of the patient, or of later complication, without mention of misadventure at the time of the procedure; Y82.8 Other medical devices associated with adverse incidents; N30.90 Cystitis, unspecified without hematuria; E87.5 Hyperkalemia; D50.9 Iron deficiency anemia, unspecified; E87.6 Hypokalemia; E83.42 Hypomagnesemia; B96.89 Other specified bacterial agents as the cause of diseases classified elsewhere; Z86.73 Personal history of transient ischemic attack (TIA), and cerebral infarction without residual deficits; Z90.49 Acquired absence of other specified parts of digestive tract; Z79.82 Long term (current) use of aspirin; Z79.899 Other long term (current) drug therapy
CPT/HCPCS: 10081

== ENCOUNTER 2020-09-05 18:58 | Emergency (ER) | payer OTHER ==
[~2020-09-05] VITALS: Ht 167.6 cm; Wt 63.5 kg
[~2020-09-05 18:58] MED LIST changes: +BACTRIM DS TAB1 EACH PO; +XALATAN2.5 ML OPHTHALMIC
[2020-09-05 20:55] VITALS: BP 91/61
== END 2020-09-05 20:30 | disposition home or self-care (01) ==
LOC: ER 18:58
DX: K94.23 Gastrostomy malfunction (principal); I50.9 Heart failure, unspecified; Z79.899 Other long term (current) drug therapy; Z79.82 Long term (current) use of aspirin

== ENCOUNTER 2020-09-08 14:44 | Emergency (ER) | payer OTHER ==
[~2020-09-08] VITALS: Ht 167.6 cm; Wt 45.4 kg
[2020-09-08 17:39] VITALS: BP 104/62
== END 2020-09-08 19:00 ==
LOC: ER 14:44
DX: K94.23 Gastrostomy malfunction (principal); I50.9 Heart failure, unspecified; Z79.82 Long term (current) use of aspirin; Z79.899 Other long term (current) drug therapy

== ENCOUNTER 2020-09-13 09:17 | Emergency (ER) | payer OTHER ==
[~2020-09-13] VITALS: Ht 167.6 cm; Wt 45.4 kg
[2020-09-13] MEDS ORDERED: XANAX 0.5 MG0.5 M1 PO (10:10)
[2020-09-13 11:01] LABS: ABSOLUTE NEUTROPHILS 4.9 thou/uL (1.4-8.2); BASOPHILS 0.7 % (0.0-2.0); EOSINOPHILS 1.7 % (0.0-3.0); HEMATOCRIT 40.2 % (42.0-52.0); HEMOGLOBIN 12.7 gm/dL (14.0-18.0); LYMPHOCYTES 19.3 % (24.0-44.0); MCH 26.1 pg (26.0-34.0); MCHC 31.6 g/dL (28.0-37.0); MCV 82.6 fL (80.0-100.0); MONOCYTES 10.2 % (1.0-8.0); PLATELET COUNT 312 thou/uL (150-400); POLYS 68.1 % (36.0-66.0); RBC 4.87 mil/uL (4.50-6.00); RDW 17.6 % (10.5-14.5); WBC 7.2 thou/uL (4.0-11.0)
[2020-09-13 11:05] LABS: CALCIUM 9.2 mg/dL (8.5-10.1); CREATININE 0.7 mg/dL (0.7-1.3); POTASSIUM 4.5 mmol/L (3.5-5.1)
[2020-09-13 11:10] LABS: ALBUMIN 2.8 g/dL (3.4-5.0); TOTAL BILIRUBIN 1.3 mg/dL (0.2-1.0)
[2020-09-13 11:45] LABS: URINE BILIRUBIN 3+ (Negative); URINE BLOOD 1+ (Negative); URINE CLARITY TURBID; URINE COLOR GREEN; URINE GLUCOSE-RANDOM* TRACE (Negative); URINE KETONES NEGATIVE (Negative); URINE NITRITE-REFLEX NEGATIVE (Negative); URINE PROTEIN (DIPSTICK) 2+ (Negative); URINE SPECIFIC GRAVITY 1.025 (1.005-1.035)
[2020-09-13 11:49] LABS: ICTOTEST (BILI CONFIRMATORY) Positive (Negative); URINE LEUKOCYTES-REFLEX 2+ (Negative)
[2020-09-13 11:53] LABS: SQUAMOUS 0-3 Few /LPF (0-3)
[2020-09-13 11:54] LABS: AMORPHOUS PHOSPHATES Moderate /LPF (None Seen); BACTERIA-REFLEX >30 Many /HPF (None Seen); CASTS None Seen /LPF (None Seen); MUCUS 4-6 Moderate strn/LPF (None Seen); URINE RBC None Seen /HPF (0-2); URINE WBC-REFLEX 6-15 Few /HPF (0-5)
[2020-09-13 12:21] VITALS: BP 99/51
[2020-09-13] MEDS ORDERED: KEFLEX500 M1 PO (12:22)
== END 2020-09-13 14:19 ==
LOC: ER 09:17
PROVIDERS: Emergency Medicine
DX: R31.9 Hematuria, unspecified (principal); I50.9 Heart failure, unspecified; Z79.82 Long term (current) use of aspirin; Z79.899 Other long term (current) drug therapy

== ENCOUNTER 2020-09-25 15:55 | Inpatient (IN) | payer OTHER ==
[2020-09-25] VITALS (21 sets, daily range): BP systolic 68–122; BP diastolic 40–66
[~2020-09-25] VITALS: Ht 167.6 cm; Wt 40.8 kg
[~2020-09-25 15:55] MED LIST changes: +KEFLEX500 M1 PO; +XANAX 0.5 MG0.5 M1 PO
[2020-09-25] MEDS ORDERED: BACTRIM DS TAB1 EAC1 PER TUBE (16:13)
[2020-09-25] MEDS ORDERED: KEFLEX500 M1 PER TUBE (16:15)
[2020-09-25 16:35] LABS: ABSOLUTE NEUTROPHILS 5.3 thou/uL (1.4-8.2); BASOPHILS 0.3 % (0.0-2.0); EOSINOPHILS 0.9 % (0.0-3.0); HEMATOCRIT 40.1 % (42.0-52.0); HEMOGLOBIN 13.5 gm/dL (14.0-18.0); LYMPHOCYTES 19.3 % (24.0-44.0); MCH 26.6 pg (26.0-34.0); MCHC 33.7 g/dL (28.0-37.0); MONOCYTES 7.3 % (1.0-8.0); PLATELET COUNT 560 thou/uL (150-400); POLYS 72.2 % (36.0-66.0); RBC 5.08 mil/uL (4.50-6.00); RDW 17.7 % (10.5-14.5); WBC 7.3 thou/uL (4.0-11.0)
[2020-09-25 16:50] LABS: CALCIUM 9.2 mg/dL (8.5-10.1); CREATININE 0.8 mg/dL (0.7-1.3); POTASSIUM 4.5 mmol/L (3.5-5.1)
[2020-09-25 16:57] LABS: ALBUMIN 3.7 g/dL (3.4-5.0); TOTAL BILIRUBIN 0.5 mg/dL (0.2-1.0); TOTAL PROTEIN 9.1 g/dL (6.4-8.2)
[2020-09-25 17:15] LABS: URINE BILIRUBIN NEGATIVE (Negative); URINE BLOOD 3+ (Negative); URINE COLOR YELLOW; URINE GLUCOSE-RANDOM* NEGATIVE (Negative); URINE KETONES NEGATIVE (Negative); URINE LEUKOCYTES-REFLEX 2+ (Negative); URINE NITRITE-REFLEX NEGATIVE (Negative); URINE PROTEIN (DIPSTICK) TRACE (Negative); URINE SPECIFIC GRAVITY 1.025 (1.005-1.035); URINE UROBILINOGEN 0.2 E.U./dl (0.2-1.0)
[2020-09-25 17:16] LABS: URINE CLARITY HAZY
[2020-09-25 17:28] LABS: SQUAMOUS None Seen /LPF (0-3); URINE WBC-REFLEX >25 Many /HPF (0-5)
[2020-09-25 17:29] LABS: BACTERIA-REFLEX >30 Many /HPF (None Seen); CASTS None Seen /LPF (None Seen); CRYSTALS None Seen /LPF (None Seen)
[2020-09-25 17:44] LABS: YEAST-REFLEX Present (None Seen)
[2020-09-25 21:48] LABS: CALCIUM 8.4 mg/dL (8.5-10.1); CREATININE 0.7 mg/dL (0.7-1.3); POTASSIUM 5.4 mmol/L (3.5-5.1)
[2020-09-26] VITALS (95 sets, daily range): BP systolic 80–118; BP diastolic 41–69
--- NOTE | 2020-09-26 00:56 | NUR ---
REPORT RECEIVED FROM ER NURSE. PATIENT ARRIVED AT THE UNIT AT APPROX 1930. PATIENT IS A/0X3. AFEBRILE. HYPOTENSIVE OTHERWISE VSS. LEVOPHED GTT. ON RA WITH SATS>95. DENIES SOA, N/V. C/O PAIN. MEDS GIVEN ORDERED. J AND PEG TUBE IN PLACE. FAMILY UPDATED. DENIES NEEDS. WILL MONITOR
[2020-09-26 04:00] LABS: CALCIUM 8.4 mg/dL (8.5-10.1); CREATININE 0.6 mg/dL (0.7-1.3); TOTAL BILIRUBIN 0.8 mg/dL (0.2-1.0); TOTAL PROTEIN 7.4 g/dL (6.4-8.2)
--- NOTE | 2020-09-26 10:56 | NUR ---
VAT CONSULTED TO PLACE PICC LINE. 4FR DUAL PICC PLACED TO LEFT UPPER BRACHIAL VEIN. TRIMMED 54 WITH 4CM EXTERNAL. TIP LOCATION CONFIRMED WITH 3CG AND RELEASED FOR USE, PER HOSPITAL POLICY.
--- NOTE | 2020-09-26 11:52 | NUR ---
ST RECEIVED REFERRAL FOR BEDSIDE SWALLOW. THE PATIENT WAS SEEN DURING RECENT ADMISSION (JUL 2020) AND WAS DISCHARGED WITH ORDERS FOR NPO WITH COMFORT FEEDINGS UNDER HOSPICE CARE. ST MAY NOT BE WARRENTED IF THE PATIENT IS UNDER COMFORT MEASURES OR HOSPICE CARE. ORDERS WILL BE DEFERRED UNTIL THERE IS FURTHER CLARIFICATION ON PATIENT/FAMILY WISHES FOR LEVEL OF CARE.
--- NOTE | 2020-09-26 18:10 | NUR ---
TITRATING LEVOPHED DOWN B/P PERMITS. PT MORE ALERT BUT SOMEWHAT CONFUSED TO SITUATION. HAD A VISIT TODAY FROM HIS MOTHER WHO IS THE DESIGNATED PERSON. OVERALL PT PROGRESSING TOWARD GOALS OF CARE.
[2020-09-27] VITALS (60 sets, daily range): BP systolic 69–124; BP diastolic 34–69
--- NOTE | 2020-09-27 06:00 | NUR ---
PT HAS BEEN AWAKE ALL NIGHT LONG. YELLING OUT WANTING PAIN MED AND HIS BACK AND FEET TO BE ITCHED ALMOST EVERY 10 MINUTES TONIGHT LEVOPHED GTT TITRATED TO 1 MCG. 500 CC UO And 250 CC FROM G TUBE. LUNGS CLEAR O2 SAT 98 % ON ROOM AIR. AFEBRILE. BATHED. WILL CONT TO MONITOR.
[2020-09-27 08:12] LABS: CALCIUM 8.1 mg/dL (8.5-10.1); CREATININE 0.4 mg/dL (0.7-1.3); POTASSIUM 3.7 mmol/L (3.5-5.1)
--- NOTE | 2020-09-27 09:37 | NUR ---
SPOKE W/ STAFF AT [facility], UPDATE PROVIDED ON PT CONDITION. CLARIFIED THAT PT IS NOT ON HOSPICE CARE NOR COMFORT CARE AT THEIR FACILITY.
--- NOTE | 2020-09-27 17:37 | NUR ---
PT AWAKE AND ALERT, MILDLY CONFUSED AND OCCASIONALLY RESTLESS. TUBE FEEDING STARTED AND PT TOLERATING. LEVOPHED REMAINS WITH ACTIVE TITRATION. PT PROGRESSING TOWARD GOALS.
[2020-09-28] VITALS (42 sets, daily range): BP systolic 79–129; BP diastolic 39–73
[2020-09-28 05:28] LABS: CALCIUM 7.9 mg/dL (8.5-10.1); CREATININE 0.4 mg/dL (0.7-1.3); POTASSIUM 3.5 mmol/L (3.5-5.1)
--- NOTE | 2020-09-28 06:00 | NUR ---
PT AWAKE MOST OF NIGHT. I CALLED HIS MOTHER BROTHER AND AUNT 3 DIFFERENT TIMES EACH FOR HIM TO VISIT WITH THEM. AFEBRILE. REMAINS ON LEVOPHED GTT AT 1 MCG JEVITY 1.5 TF AT 45 CC/HR GOAL RATE. 200 CC UO AND 100 CC FROM G TUBE THIS SHIFT. REMAINS IN SINUS RHYTHM. LUNGS CLEAR, BATHED. FENTANYL PRN AND BENADRYL FOR ITCHING. PT SLEPT AFTER BENADRYL DOSES. PROGRESSING TOWARD GOALS.
--- NOTE | 2020-09-28 07:17 | EKG ---
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1960 Requested By: Eddie Burns Order Number: [id number] MD: Jules Ritter Measurements Intervals [place] Rate: 79 P: [place]: QRS: 81 QRSD: 164 T: 266 QT: 455 QTc: 522 Interpretive Statements NSR LBBB Artifact in lead(s) III,aVL,aVF,V1,V2,V3,V4,V5,V6 and baseline wander in lead(s) II,III,aVR,aVF Compared to ECG 08/27/2020 09:51:38 No significant change Electronically Signed On 09-28-2020 7:17:25 CDT by Jules Ritter [email or web address] <ELECTRONICALLY SIGNED> By: Jules Ritter MD, FAC 09/28/20 07 49 49 Jules Ritter MD, FAC /EPI
--- NOTE | 2020-09-28 09:34 | 2DMMODE ---
[facility] [place] [address] 2 D/M-MODE ECHOCARDIOGRAM Name: DARNELL SORENSEN Room #: 241-P ADM IN M.R.#: [id number] Admission: 09/25/20 Attend Phys: Kinsey Cervantes MD Discharge: Date of : 58 Report #: [id number] THIS REPORT FOR: cc: Stuart Winslow MD, Srinath MD Santiago, Patrick MD [facility] ~ APPROVED REPORT Study performed: 09/28/2020 08:53:11 EXAM: Comprehensive 2D, Doppler, and color-flow Echocardiogram Patient Location: ICU Room #: 241 Status: routine BSA: 1.57 HR: 91 bpm BP: 79/39 mmHg Rhythm: BBB, PVCs Other Information Study Quality: Good Technically limited study due to patient contracted. Indications Hypotension, BBB. Hx: CHF, quadraplegia. 2D Dimensions RVDd: 37.27 mm IVSd: 8.94 (7-11mm) LVOT Diam: 23.52 (18-24mm) LVDd: 53.39 mm PWd: 11.02 (7-11mm) LVDs: 48.75 (25-40mm) Aortic Root: 38.51 mm Volumes Left Atrial Volume (Systole) Single Plane 4CH: 27.51 mL Single Plane 2CH: 33.06 mL LA ESV Index: 20.00 mL/m2 Aortic Valve AoV Peak Brady.: 1.06 m/s AO Peak Gr.: 4.47 mmHg LVOT Max P.72 mmHg [facility] [address] [place] [address] 2 D/M-MODE ECHOCARDIOGRAM Name: HAILEY SORENSENANO Room #: 241-P [facility] IN .R.#: [id number] Admission: 09/25/20 Attend Phys: Charles Alicia Discharge: Date of : 58 Report #: [id number] LVOT Max V: 0.96 m/s RENEE Vmax: 3.96 cm2 Mitral Valve E/A Ratio: 0.8 MV Decel. Time: 176.45 ms MV E Max Brady.: 0.57 m/s MV A Brady.: 0.75 m/s MV PHT: 51.17 ms IVRT: 85.35 ms Pulmonary Valve PV Peak Brady.: 2.07 m/s PV Peak Gr.: 17.20 mmHg Pulmonary Vein P Vein S: 0.83 m/s P Vein D: 0.51 m/s P Vein S/D Ratio: 1.63 Tricuspid Valve RAP Estimate: 5.00 mmHg Left Ventricle The left ventricle is normal size. There is normal left ventricular wall thickness. Left ventricular systolic function is severely decreased. LVEF is 25%. Mild diastolic dysfunction is present (impaired relaxation pattern). Right Ventricle The right ventricle is normal size. The right ventricular systolic function is normal. Atria The left atrium size is normal. The right atrium size is normal. Aortic Valve The aortic valve is normal in structure. No aortic regurgitation is present. There is no aortic valvular stenosis. Mitral Valve The mitral valve is normal in structure. Trace mitral regurgitation. Tricuspid Valve The tricuspid valve is normal in structure. There is no tricuspid [facility] [address] [address] 2 D/M-MODE ECHOCARDIOGRAM Name: DARNELL SORENSEN Room #: [address] [place] [address] [place] .R.#: [id number] Admission: 09/25/20 Attend Phys: Charles Alicia Discharge: Date of : 58 Report #: [id number] valve regurgitation noted. Unable to assess PA pressure. Pulmonic Valve The pulmonary valve is normal in structure. Trace pulmonic regurgitation. Great Vessels Aortic root is borderline dilated. Ascending aorta is not well visualized. IVC is normal in size and collapses >50% with inspiration. Pericardium There is no pericardial effusion. <Conclusion> Normal left ventricular size/wall thickness Severe LV systolic dysfunction ejection fraction 25%, anteroseptal wall mildly dyskinetic Small posterior pericardial effusion, no tamponade physiology Normal right ventricle size/function Normal atrial size Color-flow Doppler study was performed of the aortic/mitral/tricuspid/pulmonary valve Normal aortic/mitral valve structure and function Trace tricuspid valve insufficiency, unable to assess PA pressure Normal aortic root size No pericardial effusion Normal IVC size and response to respiration <ELECTRONICALLY SIGNED> By: Jules Ritter MD, FACC 09/28/20933 3 3 Jules Ritter MD, FACC /INF
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
--- NOTE | 2020-09-28 16:14 | NUR ---
PT ADMITTED RELATED TO SEPSIS, UTI, HYPOTENSION, HYPONATREMIA. CM REVIEWED CHART AND SPOKE WITH CARE TEAM. CM ATTEMTPED PT TO PT'S BROTHER GRADY, CM LEFT VM. PT'S MOTHER HAD VISITED HIM AT BEDSIDE DURING STAY. PT RESIDES IN LTC AT [facility]. PT WAS RECENTLY HERE FOR G TUBE/J TUBE PLACEMENT. HE RETURNED TO FACILITY LTC SKILLED HAD BEEN DENIED. IT IS ANTICIPATED THAT PT WILL RETURN TO [facility] ONCE MEDICALLY STABLE. CLINICAL INFO FAXED TO FACILITY PT MAY BE MEDICALLY STABLE TO DC TOMORROW IF BP STABLEIZES. CM FOLLOWING INDICATED WITH DC PLANNING.
--- NOTE | 2020-09-28 18:08 | NUR ---
ASSUMED PATIENT CARE AT 0700. ECHO COMPLETED. PATIENT TITRATED OFF LEVO AT 0900. CLEAR DIET PLACED AFTER SPEECH EVAL. TUBE FEEDINGS CHANGED PER ORDERS. GTUBE OUTPUT INCREASED WHEN PATIENT BEGAN CONSUMING PO FLUIDS. 1000 MLS OUT OF GTUBE. MOTHER AT BEDSIDE AND UPDATED. PATIENT PROGRESSING TOWARDS GOALS OF CARE. WILL CONTINUE TO MONITOR.
[2020-09-29] VITALS (24 sets, daily range): BP systolic 90–132; BP diastolic 44–69
--- NOTE | 2020-09-29 14:02 | NUR ---
ORDERS RECEIVED FOR P.T. EVAL AND TREAT. CHART REVIEWED. PLEASE REFER TO P.T. VARIANCE FOR DETAILS BUT D/C P.T. AT THIS TIME
--- NOTE | 2020-09-29 16:25 | NUR ---
discussed during los, possible tomorrow dc. cm updated tommy to oli mccollum of social work. will cont following as needed for dc needs.
--- NOTE | 2020-09-29 19:11 | NUR ---
ASSUMED CARE AT 0700. NO MAJOR CHANGES THROUGHOUT DAY. BRIEFLY NPO, CLEAR LIQUID DIET OKAYED BY GI. PATIENT TOLERATING CLEAR LIQUIDS AND TUBE FEEDS. PATIENT AND THIS NURSE UPDATED MOTHER OVER THE PHONE. PATIENT PROGRESSING TOWARDS GOALS OF CARE. WILL CONTINUE TO MONITOR.
[2020-09-30] VITALS (20 sets, daily range): BP systolic 88–122; BP diastolic 43–73
--- NOTE | 2020-09-30 06:14 | NUR ---
AT APPROX. 0200 THIS RN ATTEMPTED TO FLUSH PTS J-TUBE WITH 30 MLS OF WATER. I MET RESISTANCE HOWEVER THE PT TUBE FEEDS WERE STILL RUNNING AND I WAS ABLE TO FLUSH THE LINE VIA THE KANGAROO PUMP. AROUND 0430 THE PUMP REPEATEDLY ALARMED "FLOW ERROR". THIS RN AGAIN TRIED TO FLUSH THE TUBE MANUALLY BUT WAS UNSUCCESSFUL. AT THIS TIME TUBE FEEDS WERE HELD. PT CURRENTLY ON CLEAR LIQUID DIET. WILL CONTINUE TO MONITOR BLOOD GLUCOSE LEVELS.
[2020-09-30 09:56] LABS: HEMATOCRIT 34.1 % (42.0-52.0); HEMOGLOBIN 10.8 gm/dL (14.0-18.0); MCH 26.2 pg (26.0-34.0); MCHC 31.5 g/dL (28.0-37.0); MCV 83.1 fL (80.0-100.0); RBC 4.1 mil/uL (4.50-6.00); RDW 19.2 % (10.5-14.5); WBC 4.5 thou/uL (4.0-11.0)
[2020-09-30 10:05] LABS: CALCIUM 7.5 mg/dL (8.5-10.1); CREATININE 0.4 mg/dL (0.7-1.3); POTASSIUM 3.5 mmol/L (3.5-5.1)
--- NOTE | 2020-09-30 18:22 | NUR ---
PATIENT J-TUBE CLOGGED OVER NIGHT, TUBE FEEDS OFF SINCE 0430. PHYSICIAN UPDATED. ORDERS FOR REPLACEMNT IN IR PLACED. AWAITING J-TUBE REPLACEMENT WHEN IR AVAILABLE. HYPOGLYCEMIC, TREATED WITH DEXTROSE AND PROVIDER NOTIFIED. ORDERS PLACED FOR IV FLUIDS. TRANSFERED PATIENT TO CCU ROOM 305 AT 1700. MOTHER AND BROTHER UPDATED THROUGHOUT DAY ON J-TUBE REPLACEMENT. MOTHER CALLED BY THIS RN TO NOTIFY OF ROOM CHANGE.
--- NOTE | 2020-09-30 18:31 | NUR ---
PATIENT TRANSFERRED TO CCU FROM ICU THIS EVENING. PLACED ON MONTIOR. VITAL SIGNS TAKEN. STARTED ON D5 NS PER ORDERS. PATIENT DENIES ANY NEEDS OR CONCERNS. COREG HELD DUE TO HYPOTENSION.
[2020-10-01] VITALS (9 sets, daily range): BP systolic 88–108; BP diastolic 46–52
--- NOTE | 2020-10-01 06:17 | NUR ---
ASSUME CARE 1900. PT STABLE. BP RUNS SOFT/PT ON MIDODRINE TO AID WITH BP. BLOOD SUGR LOW/ORANGE AND APPLE JUICE GIVEN AND LATER D10 BOLUSGIVEN TO BOOST SUGAR. A/O X 4 AND COMMUNICATES NEEDS APPROPRIATELY. ASSESSMENT CHARTED. PLAN IS TO CONTINUE WITH ABX THERAPY TO MANAGE INFECTION AND THEN DISCHARGE BACK TO HALF-WAY WHEN CLEARED. WILL CONTINUE TO MONITOR AND FOLLOW WITH POC
--- NOTE | 2020-10-01 16:21 | NUR ---
PT CARE ASSUMED AT 0700. ASSESSMENTS CHARTED. MEDICATIONS CHARTED. CASEY 2L PICC. SINUS RHYTHM. SANTIAGO. COCCYX WOUND; Z-GUARD. POSSIBLE JEJUNAL TUBE EXCHANGE 10/02/20. Q2 TURNS; PT COMPLAINS OF LEG PAIN. RT SIDED PARALYSIS.
--- NOTE | 2020-10-01 16:26 | NUR ---
Case discussed with the care team. Dc on hold due to clogged J tube. Plan for IR tomorrow for J tube replacement. Possible dc over the weekend if tube replaced and pt is able to tolerate enteral feedings. Miya in admissions at [facility] updated. They may be able to accept him back over the weekend if ready but ambulance/stretcher transport will need to be arranged per the hospital and their charge nurse notified by calling [phone]. They will need a chart copy and orders faxed. Nursing has updated his mother. Will follow.
--- NOTE | 2020-10-01 16:44 | NUR ---
FAXED CLINICAL UPDATES TO [facility] WITH NOTATION THAT PATIENT WILL DISCHARGE IN A COUPLE OF DAYS PER ANNY/OVEN OPERATOR AUTOMAT[employer]. [facility] P [phone]; FAX [phone]
[2020-10-02] VITALS (7 sets, daily range): BP systolic 85–103; BP diastolic 49–55
--- NOTE | 2020-10-02 04:55 | NUR ---
PT IS ALERT AND ORIENTED X4. MEDICATED FOR PAIN IN KNEE HE REPORTS SEE MAR FOR TIME OF ADMINISTRATION. AND REPOSITIONING HELPS FOR COMFORT AND RELIEF. LUNGS ARE CLEAR TO DIMINISHED. TAKES MEDS WITH PO WATER. CALL LIGHT PRESENT AND FREQUENT ROUNDS TO ASSIST WITH PT CARE NEEDS.
[2020-10-02 09:54] LABS: INR 1.14; PROTIME 12.3 Seconds (9.3-11.4)
[2020-10-02 11:02] LABS: ALBUMIN 1.7 g/dL (3.4-5.0); CALCIUM 7.4 mg/dL (8.5-10.1); CREATININE 0.4 mg/dL (0.7-1.3); POTASSIUM 3.8 mmol/L (3.5-5.1); TOTAL BILIRUBIN 0.2 mg/dL (0.2-1.0); TOTAL PROTEIN 4.8 g/dL (6.4-8.2)
--- NOTE | 2020-10-02 19:35 | NUR ---
PT CARE ASSUMED AT 0700. ASSESSMENTS CHARTED. MEDICATIONS CHARTED. CASEY 2L PICC. SINUS RHYTHM, BBB. SANTIAGO, BILE COLLECTION BAG. WOUND CARE Z-GUARD. RT SIDED PARALYSIS. CLEAR LIQUID DIET; FEEDER.
--- NOTE | 2020-10-03 04:02 | NUR ---
NO CHANGED REPOSTION 2 HOURS FOR CARE PAIN MANAGEMENT AND ONGOING NURISNG CARE NEEDS REPLACEMENT OF G/J TUBE BUT WAITING HOSPITAL TO RECEIVE TUBE AND PROCEDURE AT THIS TIME.
[2020-10-03 04:11] VITALS: BP 88/50
[2020-10-03 07:35] VITALS: BP 97/60
[2020-10-03 11:40] VITALS: BP 111/63
[2020-10-03 16:05] VITALS: BP 102/58
--- NOTE | 2020-10-03 18:33 | NUR ---
PT RESTING IN BED AT THIS TIME, DENIES PAIN, REPOSITIONED. ALERT AND ORIENTED. PT ATE 100% OF MEALS TODAY. RESP EVEN AND UNLABORED. NO CONCERNS AT THIS TIME. VS WNL.
[2020-10-03 19:30] VITALS: BP 98/59
--- NOTE | 2020-10-04 05:10 | NUR ---
Pt transferred from approx 0020 via bed. A.OX4 with forgetfulness noted able to voice needs. C/o pain to left knee/right thigh medicated per EMAR and resting at this time. Pt is contracted,repositioned every 2 hrs as tolorated.Dependent edema noted on left arm,encouraged to move his hand around;elevated on a pillow. Pt had 2 orders for IV fluids;JORGE Armstrong notified D5W 0.9 NS Dc'd. D5W 0.45 NS w/KCL hang via LUE PICC w/o any problems. G-J tube in place,G to gravity drainage with greenish drainage and J-tube clamped. Fall precautions in place,will continue to monitor pt.
[2020-10-04 06:07] VITALS: BP 97/50
[2020-10-04 07:09] LABS: BASOPHILS 1.1 % (0.0-2.0); EOSINOPHILS 5.4 % (0.0-3.0); HEMATOCRIT 31.5 % (42.0-52.0); HEMOGLOBIN 10.1 gm/dL (14.0-18.0); LYMPHOCYTES 39.7 % (24.0-44.0); MCH 26.5 pg (26.0-34.0); MCHC 32.1 g/dL (28.0-37.0); MCV 82.6 fL (80.0-100.0); MONOCYTES 5.8 % (1.0-8.0); PLATELET COUNT 236 thou/uL (150-400); RBC 3.82 mil/uL (4.50-6.00); RDW 19.5 % (10.5-14.5); WBC 4.1 thou/uL (4.0-11.0)
[2020-10-04 07:41] LABS: ALBUMIN 1.7 g/dL (3.4-5.0); CALCIUM 7.8 mg/dL (8.5-10.1); CREATININE 0.4 mg/dL (0.7-1.3); MAGNESIUM 1.2 mg/dL (1.8-2.4); PHOSPHORUS 2.1 mg/dL (2.6-4.7); POTASSIUM 3.7 mmol/L (3.5-5.1); TOTAL BILIRUBIN 0.2 mg/dL (0.2-1.0)
[2020-10-04 08:06] VITALS: BP 110/62
[2020-10-04 10:38] LABS: ANISOCYTOSIS 2+
--- NOTE | 2020-10-04 16:07 | NUR ---
AWAKE, ORIENTED. CALLS OUT FREQUENTLY. SR PER TELE. REPOSITIONED, MEDICATED FOR PAIN CONTROL. FALL PRECAUTIONS IN PLACE.
[2020-10-04 16:25] VITALS: BP 91/55
[2020-10-04 20:00] VITALS: BP 100/56
--- NOTE | 2020-10-05 02:24 | NUR ---
ASSUMED CARE OF PT AT SHIFT CHANGE. PT AOX3-4 AND CAN BE FORGETFUL. FALL PRECAUTION IN PLACE. PT TURNED Q2H. SANTIAGO IN PLACE AND IS PATIENT. G TUBE TO DD. IVF AND IV ABX CONTINUED. PT REPORTED LLE PAIN AND WAS TREATED WITH PRN PAIN MEDS. SCDS IN PLACE. HEEL PROTECTORS IN PLACE. PT PLACED NPO AT MT FOR J TUBE EXCHANGE IN THE AM. PT WAS ABLE TO GET COMFORTABLE AND SLEEP PART OF THE SHIFT. SOME LUE AND LLE EDEMA NOTED. PT WAS ABLE TO GET COMFORTABLE AND SLEEP PART OF THE SHIFT. VSS AND NO S/S OF ACUTE DISTRESS. WILL CONTINUE TO MONITOR.
[2020-10-05 06:08] LABS: ABSOLUTE NEUTROPHILS 1.7 thou/uL (1.4-8.2); EOSINOPHILS 7.1 % (0.0-3.0); HEMATOCRIT 29.9 % (42.0-52.0); HEMOGLOBIN 9.7 gm/dL (14.0-18.0); LYMPHOCYTES 39.5 % (24.0-44.0); MCH 26.7 pg (26.0-34.0); MCHC 32.4 g/dL (28.0-37.0); MCV 82.4 fL (80.0-100.0); MONOCYTES 7.8 % (1.0-8.0); PLATELET COUNT 229 thou/uL (150-400); POLYS 44.6 % (36.0-66.0); RBC 3.63 mil/uL (4.50-6.00); RDW 19.4 % (10.5-14.5); WBC 3.8 thou/uL (4.0-11.0)
[2020-10-05 06:50] LABS: ALBUMIN 1.6 g/dL (3.4-5.0); CALCIUM 7.5 mg/dL (8.5-10.1); CREATININE 0.4 mg/dL (0.7-1.3); MAGNESIUM 1.3 mg/dL (1.8-2.4); PHOSPHORUS 2.5 mg/dL (2.5-4.9); POTASSIUM 4.1 mmol/L (3.5-5.1); TOTAL BILIRUBIN 0.2 mg/dL (0.2-1.0); TOTAL PROTEIN 4.7 g/dL (6.4-8.2)
[2020-10-05 08:12] VITALS: BP 168/94
[2020-10-05 11:34] VITALS: BP 94/56
--- NOTE | 2020-10-05 12:11 | NUR ---
PT TO GO TO IR THIS DAY FOR NEW TUBE. PT TO BE INITIATED ON TUBE FEEDS AND ID DETERMINING IV ABX NEEDS UPON DC. CM SENT CLINICAL UPDATE TO [facility] AND ASKED THAT THEY SUBMIT FOR AUTH FOR PT POSSIBLE DC BACK TO FACILITY SKILLED TOMORROW.
--- NOTE | 2020-10-05 13:13 | NUR ---
ASSUMED CARE OF PATIENT AT SHIFT CHANGE. ASSESSMENT CHARTED. PO MEDS FLEXED FOR NPO STATUS... PATIENT TO HAVE JTUBE REPLACEMENT SINCE 09/30 HOWEVER PER IR, JTUBE REPLACEMENT PART "WILL NOT BE HERE UNTIL LATER THIS WEEK". PATIENT TAKEN OFF NPO STATUS; RESUMED TO FULL LIQUID DIET. CM TO BE NOTIFIED OF UPDATE WHEN AVAILABLE. PATIENT BEDBOUND AND BEING REPOSITIONED Q2HRS. WOUNDS ON BUTTOCK AND KNEES CLEANED AND APPLIED BARRIER CREAM. MULTIPLE SOFT BOWEL MOVEMENTS THIS DAY. PICC INTACT AND FLUSHING WELL. FALL PRECAUTIONS IN PLACE. WILL CONTINUE TO MONITOR AND FOLLOW PLAN OF CARE; AWAITING ANY FURTHER UPDATES
--- NOTE | 2020-10-05 15:41 | NUR ---
FAXED CLINICAL UPDATE TO [facility] SPOKE WITH WANG SHE RECEIVED UPDATE AND WILL SUBMIT FOR AUTH.
[2020-10-05 16:24] VITALS: BP 103/58
[2020-10-05 19:13] VITALS: BP 97/61
--- NOTE | 2020-10-06 02:42 | NUR ---
PT CARE ASSUMED WITH PT IN BED WATCHING TV AT 1915.PT IS A/O X4.PT IS TOTAL CARE WITH HX OF QUADRIPLEGIC.PT HAS A G-TUBE DRAINING TO GRAVITY AND A CLOGGED J-TUBE.PT IS ACCUCHECK ACHS.PT HAS A SANTIAGO CATHETER IN PLACE.IV ACCESS ON LT UA PICC DOUBLE LUMEN.PT IS A CLEAR LIQUID DIET AND TAKES MEDICATIONS WHOLE BY MOUTH WITH NO ISSUES.PT C/O PAIN ON AMRITA LE AND PAIN MANAGED WITH TRAMADOL.WILL CONTINUE TO MONITOR PER POC
[2020-10-06 06:37] LABS: HEMATOCRIT 30.4 % (42.0-52.0); HEMOGLOBIN 9.9 gm/dL (14.0-18.0); MCH 26.9 pg (26.0-34.0); MCHC 32.6 g/dL (28.0-37.0); MCV 82.5 fL (80.0-100.0); RBC 3.69 mil/uL (4.50-6.00); RDW 19.7 % (10.5-14.5); WBC 3.6 thou/uL (4.0-11.0)
[2020-10-06 06:46] LABS: CALCIUM 7.7 mg/dL (8.5-10.1); CREATININE 0.4 mg/dL (0.7-1.3); MAGNESIUM 1.3 mg/dL (1.8-2.4); POTASSIUM 3.9 mmol/L (3.5-5.1)
[2020-10-06 08:25] VITALS: BP 137/71
--- NOTE | 2020-10-06 14:59 | NUR ---
J TUBE WAS AQUIRED THIS DAY. PT WENT TO IR TO HAVE IT REPLACED. CLINICAL UPDATE TO BE SENT TO [facility]. [facility] FOLLOWING REGARDING DC PLANNING.
[2020-10-06 19:18] VITALS: BP 138/69
--- NOTE | 2020-10-06 19:24 | NUR ---
Assumed pt care at 7am.Pt in bed most of the time this shift.Repositioned q2h for comfort.Assessment completed.vss.Assisted pt with feeding at all meals. Dr Burns here,order noted.Family here to visit ,updates given.Pt left for [employer] later this afternoon and returned to room some hours later.. Pt in bed sleeping at present without c/o.Report off to [facility].
[2020-10-06 20:00] VITALS: BP 121/69
--- NOTE | 2020-10-07 03:05 | NUR ---
PT CARE ASSUMED WITH PT IN BED WATCHING TV.PT IS A/O X4.PT IS ON BEDREST AND TOTAL CARE.PT HAD 4 LOOSE STOOL DURING SHIFT.PT HAS A G-TUBE TO DRAIN AND A J-TUBE WAS PLACED YESTERDAY.PT C/O ITCHING AND BENADRYL WAS GIVEN.PT IV ACCESS ON LT UA PICC DOUBLE LUMEN.PT IS Q2 TURN.WILL CONTINTUE TO MONITOR
[2020-10-07 08:18] VITALS: BP 112/67
[2020-10-07 11:53] VITALS: BP 94/53
--- NOTE | 2020-10-07 12:13 | NUR ---
Rec restart osmolite 1.5 at 30ml/hr with goal of 45ml/hr. ST has recommended to advance to puree diet and awaiting physician approval for this. If pt starts to take oral intake, will reassess TF goal as appropriate.
--- NOTE | 2020-10-07 14:23 | NUR ---
ASSUMED PT CARE THIS AM. PT VSS, A&OX2. PATIENT COOPERATIVE WITH STAFF. MAKES NEEDS KNOWN. G TUBE TO DRAINAGE BAG AND J TUBE NOW HOOKED UP TO TUBE FEEDING OSMOLITE 1.5 AT 30ML/HR, TOLERATING WELL. FOELY CATHETER IN PLACE DRAINING. IV PATENT, FLUIDS INFUSING. PATIENT BEING REPOSITIONED Q2H. REPORTS PAIN IN HIS RIGHT KNEE THAT RESPONDS WELL TO PAIN MEDS GIVEN PER EMAR. ON TELE. FALL PRECAUTIONS IN PLACE.
[2020-10-07] MEDS ORDERED: MIDODRINE HCL 55 M1 PO (14:43)
[2020-10-07] MEDS ORDERED: CIPROFLOXACIN750 MG PO (14:44)
--- NOTE | 2020-10-07 15:19 | NUR ---
CARE TEAM HAD INITIALLY THOUGHT PT WOULD BE READY TO DC TO [place] THIS DAY BUT PT WAS JUST INITIATED BACK ON TUBE FEEDING AND IS NOT AT GOAL RATE OF THIS NOTE. PT ALSO HAVING DOPPLER OF ARMS THIS AFTERNOON. COVID TEST ORDERED. ANTICIPATE PT WILL LIKELY BE MEDICALLY STABLE TO DC BACK TO FACILITY TOMORROW. FACILITY NOTIFIED. CM FOLLOWING REGARDING DC PLANNING.
[2020-10-07 17:00] LABS: HEMATOCRIT 31.2 % (42.0-52.0); HEMOGLOBIN 10.2 gm/dL (14.0-18.0); MCH 27.2 pg (26.0-34.0); MCHC 32.8 g/dL (28.0-37.0); MCV 83.1 fL (80.0-100.0); RBC 3.76 mil/uL (4.50-6.00); RDW 19.4 % (10.5-14.5); WBC 3.6 thou/uL (4.0-11.0)
[2020-10-07 17:09] LABS: CALCIUM 7.8 mg/dL (8.5-10.1); CREATININE 0.4 mg/dL (0.7-1.3); MAGNESIUM 1.8 mg/dL (1.8-2.4); POTASSIUM 3.4 mmol/L (3.5-5.1)
[2020-10-07 17:10] VITALS: BP 123/69
[2020-10-07 19:59] VITALS: BP 116/59; BP 116/66
--- NOTE | 2020-10-08 04:20 | NUR ---
Patient making slow progress towards outcome goals. IVfluids and IV medications held due to thrombus in PICC line, unable to start peripheral line. Apixaban started. Tolerating tube feedings. Turned to sides. High fall risks, fall precautions in place. Incontinent of bowels, good urine output.
[2020-10-08 07:55] VITALS: BP 97/62
[2020-10-08 09:01] LABS: CALCIUM 7.6 mg/dL (8.5-10.1); CREATININE 0.3 mg/dL (0.7-1.3); MAGNESIUM 1.4 mg/dL (1.8-2.4); POTASSIUM 4.1 mmol/L (3.5-5.1)
[2020-10-08] MEDS ORDERED: ELIQUIS5 MG PO (13:54)
--- NOTE | 2020-10-08 14:54 | NUR ---
ASSUMED PT CARE THIS AM. PT VSS, A&OX2. PATIENT MAKES SOME NEEDS KNOWN WITH CALL LIGHT, CALLS OUT AT OTHER TIMES. G TUBE TO DRAINAGE, J TUBE WITH TUBE FEEDINGS. PRAFO BOOTS IN PLACE. ON A LOW AIRLOSS MATTRESS, BEING REPOSITIONED Q2H. ON ROOM AIR. REPORTING NO PAIN. PERIPHERAL IV STARTED TO RIGHT UPPER ARM.ON TELE. TAKES MEDS WELL, TOLERATING PO DIET WELL. TUBE FEEDINGS AT GOAL RATE. FALL PRECAUTIONS IN PLACE.
--- NOTE | 2020-10-08 16:27 | NUR ---
CARE TEAM INDICATD THAT PT IS MEDICALLY STABLE TO DC BACK TO [facility] THIS DAY. [facility] TRANSPORT ARRANGED FOR [phone]. PT AND MOTHER ARE AWARE AND AGREEABLE. CHART COPY MADE. ORDERS FAXED. NURSE CALLED REPORT. NO OTHER CM INTERVENTION INDICATED. CASE CLOSED.
--- NOTE | 2020-10-08 16:34 | NUR ---
PT DISCHARGING TODAY BACK TO [facility] FOR SKILLED STAY AND TRANSITION BACK TO LTC DC ORDERS/SUMMRY FAXED TO FACILITY [facility] IN ADM HE RECEIVED ORDERS AND [phone]. SPOKE WITH PT'S MOTHER SHE IS AGREEABLE WITH DC AND TIME OF TRANSPORT. SHE WILL LET HIS BROTHER (DPOA) GRADY KNOW I TRIED CALLING AND NO ANSWER AND HIS VOICEMAIL IS FULL. NOTIFIED UNIT AND CHART COPY PER US. RN TO CALL REPORT
== END 2020-10-08 17:00 | DRG 871 ==
LOC: ER 15:55 → ICU 18:10 → EROBS 18:10 → ICU 19:04 → 2N 09-30 17:17 → 4W 10-04 00:17
PROVIDERS: Emergency Medicine; Internal Medicine; ADMIT Hospitalist; ATTEND Hospitalist
PROC: 05HY33Z Insertion of Infusion Device into Upper Vein, Percutaneous Approach (ICD-10-PCS; principal; 2020-09-26)
PROC: 0D2DXUZ Change Feeding Device in Lower Intestinal Tract, External Approach (ICD-10-PCS; 2020-10-06)
DX: A41.52 Sepsis due to Pseudomonas (principal); R57.1 Hypovolemic shock; G82.50 Quadriplegia, unspecified; E87.1 Hypo-osmolality and hyponatremia; E44.0 Moderate protein-calorie malnutrition; K94.13 Enterostomy malfunction; Z68.1 Body mass index [BMI] 19.9 or less, adult; I69.351 Hemiplegia and hemiparesis following cerebral infarction affecting right dominant side; R65.20 Severe sepsis without septic shock; Z20.822 Contact with and (suspected) exposure to COVID-19; I50.9 Heart failure, unspecified; I95.9 Hypotension, unspecified; R13.10 Dysphagia, unspecified; B96.5 Pseudomonas (aeruginosa) (mallei) (pseudomallei) as the cause of diseases classified elsewhere; D50.9 Iron deficiency anemia, unspecified; R54 Age-related physical debility; E16.2 Hypoglycemia, unspecified; Y83.8 Other surgical procedures as the cause of abnormal reaction of the patient, or of later complication, without mention of misadventure at the time of the procedure; Y82.8 Other medical devices associated with adverse incidents; E87.6 Hypokalemia; N30.90 Cystitis, unspecified without hematuria; Z79.899 Other long term (current) drug therapy
CPT/HCPCS: 10045; 10078; 10081; 10203; 27000

== ENCOUNTER 2020-10-10 13:23 | Emergency (ER) | payer OTHER ==
[~2020-10-10] VITALS: Ht 190.5 cm; Wt 54.4 kg
[~2020-10-10 13:23] MED LIST changes: +BACTRIM DS TAB1 EAC1 PER TUBE; +CIPROFLOXACIN750 MG PO; +ELIQUIS5 MG PO; +KEFLEX500 M1 PER TUBE; +MIDODRINE HCL 55 M1 PO
[2020-10-10] MEDS ORDERED: [UNRECOGNIZED DRUG - OTHER] TOP (13:43)
[2020-10-10 14:43] VITALS: BP 105/59
== END 2020-10-10 14:43 | disposition home or self-care (01) ==
LOC: ER 13:23
DX: K94.22 Gastrostomy infection (principal); I50.9 Heart failure, unspecified; Z79.82 Long term (current) use of aspirin; Z79.899 Other long term (current) drug therapy

== ENCOUNTER 2020-10-18 08:11 | Inpatient (IN) | payer OTHER ==
[~2020-10-18] VITALS: Ht 190.5 cm; Wt 64.2 kg
[2020-10-18] VITALS (29 sets, daily range): BP systolic 84–120; BP diastolic 38–70
[~2020-10-18 08:11] MED LIST changes: +[UNRECOGNIZED DRUG - OTHER] TOP
[2020-10-18 08:51] LABS: BASOPHILS 0.7 % (0.0-2.0); EOSINOPHILS 0.2 % (0.0-3.0); HEMATOCRIT 37.3 % (42.0-52.0); HEMOGLOBIN 12.1 gm/dL (14.0-18.0); LYMPHOCYTES 11.1 % (24.0-44.0); MCH 26.7 pg (26.0-34.0); MCHC 32.4 g/dL (28.0-37.0); MCV 82.6 fL (80.0-100.0); MONOCYTES 3.6 % (1.0-8.0); PLATELET COUNT 622 thou/uL (150-400); POLYS 84.4 % (36.0-66.0); RBC 4.52 mil/uL (4.50-6.00); WBC 13.1 thou/uL (4.0-11.0)
[2020-10-18 09:07] LABS: APTT 25.6 Seconds (24.5-32.8); INR 1.05; PROTIME 11.4 Seconds (9.3-11.4)
[2020-10-18 09:13] LABS: ANION GAP 5 mmol/L (7-16); BUN 15 mg/dL (7-18); CALCIUM 8.8 mg/dL (8.5-10.1); CHLORIDE 104 mmol/L (98-107); CO2 32 mmol/L (21-32); CREATININE 0.5 mg/dL (0.7-1.3); GLUCOSE 98 mg/dL (74-106); POTASSIUM 4.1 mmol/L (3.5-5.1); SODIUM 141 mmol/L (136-145)
[2020-10-18 09:19] LABS: ALBUMIN 2.2 g/dL (3.4-5.0); LIPASE 30 U/L (73-393); SGOT 32 U/L (15-37); SGPT 35 U/L (16-63); TOTAL BILIRUBIN 0.3 mg/dL (0.2-1.0); TOTAL PROTEIN 7.2 g/dL (6.4-8.2); TROPONIN-I <0.06 ng/mL (<0.06)
[2020-10-18 09:53] LABS: ANISOCYTOSIS 2+
[2020-10-18 10:17] LABS: URINE BILIRUBIN NEGATIVE (Negative); URINE BLOOD 3+ (Negative); URINE CLARITY CLOUDY; URINE COLOR YELLOW; URINE GLUCOSE-RANDOM* NEGATIVE (Negative); URINE KETONES NEGATIVE (Negative); URINE PROTEIN (DIPSTICK) 2+ (Negative)
[2020-10-18 10:22] LABS: URINE LEUKOCYTES-REFLEX 2+ (Negative); URINE NITRITE-REFLEX POSITIVE (Negative)
[2020-10-18 10:26] LABS: AMORPHOUS PHOSPHATES Moderate /LPF (None Seen); CASTS None Seen /LPF (None Seen)
[2020-10-18 10:28] LABS: BACTERIA-REFLEX >30 Many /HPF (None Seen); SQUAMOUS 0-3 Few /LPF (0-3)
[2020-10-18 10:30] LABS: CALCIUM OXALATE 0-3 Few /LPF (None Seen)
[2020-10-18 10:31] LABS: YEAST-REFLEX Present (None Seen)
--- NOTE | 2020-10-18 11:48 | NUR ---
VASCULAR ACCESS NURSE CONSULTED TO PLACE A LINE FOR SEPSIS. ORDER NOTED AND VERBAL CONSENT OBTAINED. RECENT DVT FROMPICC PLACEMENT IN THE LEFT ARM NOTED. DISCUSSED CENTRAL LINE WITH THE PATIENT AND VERBAL CONSENT OBTAINED PATIENT IS CONTRACTED AND UNABLE TO SIGN. THE RIGHT JUGULAR WAS WIDLEY PATENT. A #6F TRIPLE LUMEN POWER INJECTABLE CENTRAL LINE WAS PLACED AFTER A BEDSIDE TIMEOUT WAS COMPLETED. THE 25CM LINE WAS ADVANCED WITHOUT DIFFICULTY TO 17CM INTERNALLY. A STAT CHEST XRAY WAS ORDERED FOR CONFIRMATION
[2020-10-18 12:08] LABS: CALCIUM 7.4 mg/dL (8.5-10.1); CREATININE 0.5 mg/dL (0.7-1.3); POTASSIUM 3.7 mmol/L (3.5-5.1)
--- NOTE | 2020-10-18 14:00 | NUR ---
report received from ERASTO Day RN. at 1258, pt received in icu #243 with diagnosis: sepsis. sbp initially in the upper 80s on arrival to icu when providing cares for his comfort. bp spontaneously improved. alert/oriented, SR/ST, left upper abdominal biliary/jejunostomy tube present, leaking copious lechuga/bile secretions with area red immediately around insertion site, gastric/peg tube present in mid/lower abdomen. sands from previous facility intact with yellow/red tinged urine with a few small mucusy strands.
--- NOTE | 2020-10-18 16:00 | NUR ---
complete bath, wounds on r hip and sacrum photographed. resides in ict project manager care facility with current uti, sands 16fr replaced with sterile technique, well tolerated. adequate urine output. RIJ triple lumem placed while in er, chest xray for line placement confirmation.
--- NOTE | 2020-10-18 18:30 | NUR ---
spoke with Dr. Dockery, he confirmed continued lab draws per sepsis protocol. labs drawn, obtained cultures of biliary/jejunostomy and gastric tube sites. condition remains unchanged. alert/oriented, sr/st @ 100, sbp in 90's, room air, no resp distress, continued drainage from biliary/jejunostomy site, adequate urine output. continuing fluids and antibiotics. pt's mother was present. updated on his status, answered questions to understanding.
[2020-10-18 19:07] LABS: HEMATOCRIT 29.1 % (42.0-52.0); MCH 27.2 pg (26.0-34.0); MCHC 32.9 g/dL (28.0-37.0); MCV 82.7 fL (80.0-100.0); RBC 3.52 mil/uL (4.50-6.00); RDW 19.3 % (10.5-14.5); WBC 15.5 thou/uL (4.0-11.0)
[2020-10-18 19:09] LABS: HEMOGLOBIN 9.6 gm/dL (14.0-18.0)
[2020-10-18 19:22] LABS: CALCIUM 7.8 mg/dL (8.5-10.1); CREATININE 0.5 mg/dL (0.7-1.3); POTASSIUM 3.4 mmol/L (3.5-5.1)
[2020-10-18 23:12] LABS: HEMATOCRIT 27.6 % (42.0-52.0); HEMOGLOBIN 8.9 gm/dL (14.0-18.0); MCH 26.9 pg (26.0-34.0); MCHC 32.4 g/dL (28.0-37.0); MCV 83.2 fL (80.0-100.0); RBC 3.31 mil/uL (4.50-6.00); WBC 12.1 thou/uL (4.0-11.0)
[2020-10-18 23:25] LABS: CALCIUM 7.6 mg/dL (8.5-10.1); CREATININE 0.3 mg/dL (0.7-1.3); POTASSIUM 3.2 mmol/L (3.5-5.1)
[2020-10-19] VITALS (58 sets, daily range): BP systolic 98–129; BP diastolic 44–74
[2020-10-19 04:58] LABS: ABSOLUTE NEUTROPHILS 8.8 thou/uL (1.4-8.2); BASOPHILS 0.4 % (0.0-2.0); EOSINOPHILS 1.2 % (0.0-3.0); HEMATOCRIT 28.1 % (42.0-52.0); HEMOGLOBIN 9.1 gm/dL (14.0-18.0); LYMPHOCYTES 12.5 % (24.0-44.0); MCH 27.2 pg (26.0-34.0); MCHC 32.5 g/dL (28.0-37.0); MCV 83.6 fL (80.0-100.0); MONOCYTES 5.1 % (1.0-8.0); PLATELET COUNT 514 thou/uL (150-400); POLYS 80.8 % (36.0-66.0); RBC 3.36 mil/uL (4.50-6.00); RDW 19.5 % (10.5-14.5); WBC 10.9 thou/uL (4.0-11.0)
[2020-10-19 05:04] LABS: CALCIUM 7.9 mg/dL (8.5-10.1); CREATININE 0.3 mg/dL (0.7-1.3); POTASSIUM 3.1 mmol/L (3.5-5.1)
--- NOTE | 2020-10-19 06:37 | NUR ---
PATIENTS CARES WERE ASSUMED AT SHIFT CHANGE, PATIENT ASSESSED AND MEDS WERE PASSED. POSITION CHANGED BY PATIENT DIRECTION. PATIENT DESTATED WHILE ASLEEP AND PUT HIM ON O2 2L. ROUNDING DONE, BED IS IN LOW LOCKED POSITION, ALARM IS ON
--- NOTE | 2020-10-19 07:01 | EKG ---
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 Steamer: KF : 1960 Requested By: Jimmy Albright Order Number: [id number] MD: Jules Ritter Measurements Intervals [place] Rate: 110 P: 79 ID: [id number] QRS: 61 QRSD: 155 T: 213 QT: 416 QTc: 564 Interpretive Statements Sinus tachycardia Probable left atrial enlargement Left bundle branch block Compared to ECG 09/25/2020 18:50:57 No significant changes Electronically Signed On 10-19-2020 7:01:41 CDT by Jules Ritter [email or web address] <ELECTRONICALLY SIGNED> By: Jules Ritter MD, [facility] 10/19/20 0701 1016 1016 Jules Ritter MD, FACC /EPI
--- NOTE | 2020-10-19 08:29 | EKG ---
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: KF : 1960 Requested By: Yaw Dockery Order Number: [id number] MD: Jose Luis Interiano Measurements Intervals [place] Rate: 111 P: 75 FL: 170 QRS: 58 QRSD: 154 T: 215 QT: 423 QTc: 575 Interpretive Statements Incomplete analysis due to missing data in precordial lead(s) Sinus tachycardia Left atrial enlargement Left bundle branch block Missing lead(s): V2 Compared to ECG 09/25/2020 18:50:57 Recommend repeat tracing with all leads present Electronically Signed On 10-19-2020 8:28:58 CDT by Jose Luis Interiano [email or web address] <ELECTRONICALLY SIGNED> By: Jose Luis Interiano MD, [facility] 10/19/20 0828 1015 1015 Jose Luis Interiano MD, [facility] /EPI
--- NOTE | 2020-10-19 10:23 | NUR ---
WOUND CONSULT; THE PATIENT HAS A WOUND TO THE RIGHT ILIAC CREST 1.5 X 1.5 X 0. THE WOUND HAS UNSTABLE ESCHAR. THE PERIWOUND HAS ERYTHEMA. NO DRAINAGE SEEN. NO WARMTH TO THE SITE. RECOMMENDASTIONS; -TURN Q2H AT A MINIMUM -THERAHONEY,COVER WITH A BORDER FOAM M/W/F PRN. DISCUSSED WITH VIKI.
--- NOTE | 2020-10-19 11:07 | NUR ---
Nutrition: Severe malnutrition-consider Standard TPN goal 65 mL/hr til able to use feeding tube. When able to use feeding tube, Osmolite 1.5 at 50 mL/hr. Pt has severe malnutrition/weight loss. High refeeding syndrome risk.
[2020-10-19 12:11] LABS: HEMATOCRIT 29.9 % (42.0-52.0); HEMOGLOBIN 9.5 gm/dL (14.0-18.0); MCH 26.8 pg (26.0-34.0); MCHC 31.9 g/dL (28.0-37.0); MCV 84.3 fL (80.0-100.0); RBC 3.54 mil/uL (4.50-6.00); RDW 19.1 % (10.5-14.5); WBC 10.8 thou/uL (4.0-11.0)
[2020-10-19 12:21] LABS: CALCIUM 8.1 mg/dL (8.5-10.1); CREATININE 0.6 mg/dL (0.7-1.3)
[2020-10-19 12:23] LABS: POTASSIUM 2.9 mmol/L (3.5-5.1)
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
--- NOTE | 2020-10-19 16:38 | NUR ---
RECIEVED REPORT FROM FROM NAT DREW AT 1200 TODAY AND ASSESSED PT WITH GI. GT TUBE REMAINS TO DEPENDENT DRAINAGE. WILL CONTINUE TO ASSESS.
[2020-10-19 19:01] LABS: CALCIUM 8.1 mg/dL (8.5-10.1); CREATININE 0.4 mg/dL (0.7-1.3)
[2020-10-19 19:07] LABS: POTASSIUM 4.1 mmol/L (3.5-5.1)
--- NOTE | 2020-10-19 22:52 | NUR ---
PT ALERT AND ORIENTED. PT TOLERATED DINNER AND MEDICATIONS WELL. C/O LE PAIN. MEDICATED WITH TRAMADOL FOR PAIN AND XANAX FOR ANXIETY. PRESENTLY HE IS RESTING QUIETLY. NO S/S DISTRESS. BED CHANGED. BATH COMPLETED. DRESSING TO RIGHT BUTTOCK REMAINS CLEAN DRY AND INTACT, G AND J TUBE CARE DONE. BOTH ARE LEAKING GREEN DRAINAGE IN MODERATE AMTS. Z NOBLE APPLIED TO BUTTOCKS. LOTION APPLIED TO DRY SKIN. SCDS ON AND PRAFO/FOOT DROP BOOTS ON. PT REPOSITIONED. VANCOMYCIN LEVEL CALLED TO PHARMACY. WAITING FOR DOSAGE INCREASE. VSS AFEBRILE. SR ON MONITOR WITH BBBB.
[2020-10-20] VITALS (73 sets, daily range): BP systolic 97–131; BP diastolic 48–76
[2020-10-20 06:15] LABS: CALCIUM 7.9 mg/dL (8.5-10.1); CREATININE 0.4 mg/dL (0.7-1.3); POTASSIUM 3.4 mmol/L (3.5-5.1)
--- NOTE | 2020-10-20 07:21 | NUR ---
PT RESTING BETTER AFTER BACLOFEN THIS AM. G AMD J TUBE SITES CLEANED AND PT REPOSITIONED.
--- NOTE | 2020-10-20 13:21 | NUR ---
DR. CASSY HERNANDEZ, RE TRANSFER. IVFS. AWAITING CALL BACK.
--- NOTE | 2020-10-20 18:35 | NUR ---
TRANSFER TO CCU MET DR. MOREJON IN [place]. AWARE PT VOMITED. WHILE SLEEPING. DR. CAMARGO ALSO NOTIFIED. ALL BELONGINGS WITH PT.
[2020-10-21 04:00] VITALS: BP 111/58
[2020-10-21 09:16] VITALS: BP 127/74
--- NOTE | 2020-10-21 10:42 | NUR ---
WOUND CARE F/U; THE RIGHT ILIAC CREAT WOUND HAS LESS ESCHAR TODAY. THERAHONEY IS EFFECTIVE. NO S/S OF INFECTION OR OTHER WOUNDS. CONTINUE POC RN PRESENT.
[2020-10-21 11:32] LABS: HEMOGLOBIN 10.5 gm/dL (14.0-18.0); MCH 26.7 pg (26.0-34.0); MCHC 31.8 g/dL (28.0-37.0); RBC 3.92 mil/uL (4.50-6.00); RDW 19.6 % (10.5-14.5); WBC 10.2 thou/uL (4.0-11.0)
[2020-10-21 11:46] LABS: CALCIUM 8.6 mg/dL (8.5-10.1); MAGNESIUM 1.8 mg/dL (1.8-2.4); POTASSIUM 3.7 mmol/L (3.5-5.1)
[2020-10-21 11:57] LABS: CREATININE 1.5 mg/dL (0.7-1.3)
[2020-10-21 12:04] VITALS: BP 88/57
--- NOTE | 2020-10-21 14:44 | NUR ---
PT IS AXOX4, PLEASANT. PT VSS, WITH BP RUNNING SOFT, AFEBRILE, SR WITH BBB ON MONITOR. PT HAD J TUBE REPLACED THIS AM. PT TO HAVE G TUBE REPLACED THIS AFTERNOON. GI AND ACCOUNT ADJUSTER CONSULTED; PT TO HAVE OSMOLITE 1.5 AT 30ML IN J TUBE, WITH DIET PUREED WITH HONEY THICK LIQUIDS. PT HAS HAD LOOSE STOOLS; G TUBE LEAKING GREEN/BROWN FLUID. POC IS TO CONTINUE TO MONITOR G/J TUBE SITES, INITIATE TUBE FEEDING. WOUND CARE CONSULTED FOR R SACRAL ULCER; WOUND REDRESSED WITH FOAM. FALL PRECAUTIONS IN PLACE. NO CONCERNS AT THIS TIME.
[2020-10-21 19:29] VITALS: BP 140/81
--- NOTE | 2020-10-22 02:09 | NUR ---
ASSESSMENT: PT REMAIN ALERT AND ORIENT TIMES THREE. C/O MOSTLY WITH REPOSITIONING, TRAMADOL GIVEN WITH GOOD RELIEF. TF INFUSING WITHOUT HIGH RESIDUALS VIA J-TUBE; G-TUBE TO DD. LARGE SEMI-LIQUID STOOL AT THE BEGINNING OF THE SHIFT. VSS, AFEBRILE. SR WITH BBB PER MONITOR. SANTIAGO WITH LIGHT YELLOW URINE WITH SEDIMENTS. ISOLATION FOR VRE IN URINE. TOLERTING HONEY THICK LIQ. SLEPT MOST OF THE NIGHT. NO FURTHER COMPLIANTS. ABLE TO LET NEEDS BE KNOWN. SLOW PROGRESS TOWARDS DC GOALS. WILL CONTINUE TO MONITOR.
[2020-10-22 04:34] VITALS: BP 134/75
[2020-10-22 08:12] VITALS: BP 113/64
[2020-10-22 11:50] VITALS: BP 11/73
[2020-10-22 12:28] LABS: HEMATOCRIT 32.3 % (42.0-52.0); HEMOGLOBIN 10.3 gm/dL (14.0-18.0); MCH 26.9 pg (26.0-34.0); MCHC 31.7 g/dL (28.0-37.0); MCV 84.7 fL (80.0-100.0); RBC 3.82 mil/uL (4.50-6.00); RDW 19.6 % (10.5-14.5); WBC 8.1 thou/uL (4.0-11.0)
[2020-10-22 12:37] LABS: CALCIUM 8.2 mg/dL (8.5-10.1); CREATININE 1.8 mg/dL (0.7-1.3); MAGNESIUM 1.9 mg/dL (1.8-2.4); POTASSIUM 3.8 mmol/L (3.5-5.1)
--- NOTE | 2020-10-22 12:46 | NUR ---
DC back to [facility] possible tomorrow. ID here and cultures are pending for clarification on iv or po atb. [place] admissions updated.
[2020-10-22 15:47] VITALS: BP 131/71
[2020-10-22 19:38] VITALS: BP 103/58
--- NOTE | 2020-10-22 21:02 | NUR ---
PT IS AXOX4, PLEASANT. VSS, AFEBRILE, SR WITH BBB ON PHYSICIAN SCRIBE. PT HAS G TUBE AND J TUBE. G TUBE USED FOR DECOMPRESSION WITH DRAINAGE. J TUBE USED FOR TUBE FEEDING, OSMOLITE 1.5 AT 30ML/HR. GOAL RATE 30ML/HR. DR VICENTE CONSULTED. DR PERERA CONSULTED. GI CONSULTED. POC IS TO ASSESS PT MICRO CULTURES, WITH POSS DISCHARGE TO [facility] WHERE HE COM[facility] FROM. G TUBE CONTINUES TO LEAK FROM ABDOMINAL SITE, DRAINAGE GREEN, ESCOBEDO, BROWN, WITH FOOD PARTICLES. J TUBE SITE IS C/D/I. GI STATES RX MEDICATIONS TO BE PLACED IN G TUBE ONLY, J TUBE WILL CLOG. HIGH FALL RISK PRECAUTIONS IN PLACE. WILL CONTINUE TO MONITOR G/JTUBE SITES.
--- NOTE | 2020-10-23 03:03 | NUR ---
UPON INITIAL ASSESSMENT PATIENT G TUBE LEAKING STOMACH CONTENTS FROM AROUND TUBE. PATIENT CLEANED AND GI CONTACTED WITH ORDERS RECEIVED FOR NURSING TO USE J TUBE FOR MEDICATIONS AND LEAVE G TUBE TO DRAINAGE.
[2020-10-23 04:16] VITALS: BP 119/76
[2020-10-23 04:58] LABS: CALCIUM 7.8 mg/dL (8.5-10.1); MAGNESIUM 1.9 mg/dL (1.8-2.4); POTASSIUM 4.7 mmol/L (3.5-5.1)
[2020-10-23 05:06] LABS: HEMATOCRIT 33.5 % (42.0-52.0); HEMOGLOBIN 10.6 gm/dL (14.0-18.0); MCH 26.9 pg (26.0-34.0); MCHC 31.8 g/dL (28.0-37.0); MCV 84.8 fL (80.0-100.0); RBC 3.95 mil/uL (4.50-6.00); RDW 19.4 % (10.5-14.5); WBC 9.5 thou/uL (4.0-11.0)
[2020-10-23 08:21] VITALS: BP 129/69
--- NOTE | 2020-10-23 10:30 | NUR ---
WOUND CARE F/U; THE RIGHT ILIAC CREST WOUND IS STABLE. NO S/S OF INFECTION. A LITTLE LESS NON VIABLE TISSUE IN THE WOUND BED SINCE LAST ASSESSMENT. NO S/S OF INFECTION. CONTINUE CURRENT POC.
--- NOTE | 2020-10-23 11:57 | NUR ---
VAT TEAM CONSULTED TO ASSESS PT RIGHT IJ, RADIOLOGY REPORTED TO BEDSIDE RN THAT TIP OVERLIES RIGHT ATRIUM, FROM 10/20 CXR. ACCORDING TO DOCUMENTATION, AFTER INITIAL PLACEMENT, VAT PULLED BACK 3CM TO EQUAL 10CM EXTERNAL. WHEN THIS RN REMOVED DRESSING, TODAY, ONLY 7CM EXTERNAL. CLEANED SITE AND PULLED BACK 5CM TO EQUAL 12CM EXTERNAL. MAY USE LINE.
--- NOTE | 2020-10-23 13:13 | NUR ---
No weekend dc anticipated per the care team due to recurrent leaking of his J Tube. [facility] admissions liaemily De La [place]re notified. Pt continues on iv atb awaiting cultures per ID. Surgery consult d/t J tube. Will reassess early next week for return to ltc.
[2020-10-23 14:31] LABS: PROT/CREAT RATIO 1.8; URINE CREATININE-RANDOM* 16.3 mg/dL; URINE PROTEIN-RANDOM* 28.7 mg/dL (<11.9)
--- NOTE | 2020-10-23 16:23 | NUR ---
PATIENT ALERT/ORIENTED. G-TUBE LEAKING, LEAKING IS DECREASED WHEN PATIENT IS POSITIONED ON HIS RIGHT SIDE. NOTED BY HOSPITALIST AND GI NURSE PRACTITIONER. PRN PAIN MEDICAITON GIVEN. IV FLUID/ABX INFUSING THROUGH OUT THE DAY. CALL FROM RADIOLOGIST STATING CENTRAL LINE IS INSERTED TOO FAR. NOTIFIED IV NURSE TO PULL BACK LINE. PATIENT TO REMAIN NPO. INCREASED TUBE FEED TO 50 ML/HR (NEW GOAL) TOLERATING.
[2020-10-23 16:37] VITALS: BP 109/60
[2020-10-23 19:33] VITALS: BP 97/67
--- NOTE | 2020-10-24 03:11 | NUR ---
PT IS ALERT AND OREINTED X3. FOREGETFULL AT TIMES. CONTRACTED. REPOSTION IN BED. LUNGS ARE CLEAR TO DIMINISHED ON ROOM AIR. TOLERATING TUBE FEEDING NO RESIDUALS. SANTIAGO TO DD WITH YELLOW URINE PRESENT. JTUBE AND G/TUBE. RESTING AND CALL LIGHT WITHIN REACH IF NEEDS ASSISTANCE PER NURSING.DENIES ANY PAIN ISSUES. NO CONCERNS NOTED WITH NURSING
[2020-10-24 03:42] VITALS: BP 102/62
[2020-10-24 04:28] LABS: CALCIUM 7.6 mg/dL (8.5-10.1); CREATININE 2.1 mg/dL (0.7-1.3); MAGNESIUM 1.9 mg/dL (1.8-2.4); POTASSIUM 5.3 mmol/L (3.5-5.1)
[2020-10-24 04:44] LABS: HEMATOCRIT 34.8 % (42.0-52.0); HEMOGLOBIN 11.2 gm/dL (14.0-18.0); MCHC 32.2 g/dL (28.0-37.0); MCV 83.7 fL (80.0-100.0); RBC 4.16 mil/uL (4.50-6.00); RDW 19.4 % (10.5-14.5); WBC 7.5 thou/uL (4.0-11.0)
[2020-10-24 08:16] VITALS: BP 92/61
[2020-10-24 12:04] VITALS: BP 74/45
[2020-10-24 12:20] VITALS: BP 92/66
[2020-10-24 15:53] VITALS: BP 99/60
[2020-10-24 19:07] VITALS: BP 101/62
[2020-10-25 03:58] VITALS: BP 121/88
[2020-10-25 05:07] LABS: HEMATOCRIT 33.1 % (42.0-52.0); HEMOGLOBIN 10.7 gm/dL (14.0-18.0); MCH 27.1 pg (26.0-34.0); MCHC 32.2 g/dL (28.0-37.0); MCV 84.1 fL (80.0-100.0); RBC 3.93 mil/uL (4.50-6.00); RDW 19.2 % (10.5-14.5); WBC 7.4 thou/uL (4.0-11.0)
[2020-10-25 05:21] LABS: CALCIUM 8.1 mg/dL (8.5-10.1); CREATININE 2.2 mg/dL (0.7-1.3); MAGNESIUM 2.2 mg/dL (1.8-2.4); POTASSIUM 5.7 mmol/L (3.5-5.1)
[2020-10-25 05:29] LABS: ALBUMIN 1.6 g/dL (3.4-5.0); CALCIUM 7.8 mg/dL (8.5-10.1); CREATININE 2.2 mg/dL (0.7-1.3); PHOSPHORUS 4.4 mg/dL (2.5-4.9); POTASSIUM 5.7 mmol/L (3.5-5.1)
--- NOTE | 2020-10-25 06:29 | NUR ---
Pt. rested quiety at intervals during the night when checked on during frequent rounds. He has had periods of being restless and will yell out. Pt. repositioned several times, but patient will still complain that he is not positioned right. He has been given pain meds (see emar) for c/o bi- lateral leg pain with some relief. G-tube had minimal drainage around the insertion site and was cleansed with normal saline and dry dressing placed. G-tube patent to low intermittent suction. J-tube patent with tube feeding. Head of the bed elevated. Bed alarm is on.
[2020-10-25 08:00] VITALS: BP 121/88
[2020-10-25 14:00] VITALS: BP 119/85
--- NOTE | 2020-10-25 18:35 | NUR ---
REPOSITIONED FREQUENTLY FOR ATTEMPTED COMFORT. MEDICATED FOR PAIN ALLOWED. STILL, CRIES OUT WITH KNEE PAIN. INCONTINENT OF LARGE LIQUID STOOL MIDDAY. VRE ISOLATION. FALL PRECAUTIONS IN PLACE.
[2020-10-25 20:12] VITALS: BP 123/64
--- NOTE | 2020-10-26 02:51 | NUR ---
PAIN POORLY CONTROLLED.REPOSITIONED Q2 HOURS AND NEEDED;PATIENT STILL UNCOMFORTABLE;FENTANYL GIVEN.MONITOR SHOWS SA.POC CONTINUED.
[2020-10-26 04:07] VITALS: BP 136/83
[2020-10-26 05:14] LABS: HEMATOCRIT 30.4 % (42.0-52.0); HEMOGLOBIN 9.8 gm/dL (14.0-18.0); MCHC 32.2 g/dL (28.0-37.0); MCV 83.9 fL (80.0-100.0); RBC 3.62 mil/uL (4.50-6.00); RDW 19.6 % (10.5-14.5); WBC 7.1 thou/uL (4.0-11.0)
[2020-10-26 05:22] LABS: CALCIUM 8.1 mg/dL (8.5-10.1); CREATININE 2.1 mg/dL (0.7-1.3); MAGNESIUM 2.4 mg/dL (1.8-2.4)
[2020-10-26 08:27] VITALS: BP 108/50; BP 108/59
--- NOTE | 2020-10-26 10:45 | NUR ---
WOUND CARE F/U; THE PERIWOUND IS DENUDED. THERE IS LESS NECROSIS PRESENT. NO NEW WOUNDS IDENTIFIED. I APPLIED BARRIER WIPE TO THE PERIWOUND. RECOMMENDATIONS; FOR NOW AQUACEL AG COVERED WITH A BORDER FOAM. DISCUSSED WITH VIKI
[2020-10-26 11:53] VITALS: BP 106/52
--- NOTE | 2020-10-26 12:58 | NUR ---
CM FAXED UPDATED CLINICAL TO [facility]. PT NOT STABLE FOR DISCHARGE AT THIS TIME.
--- NOTE | 2020-10-26 14:01 | NUR ---
RN indicated Dr Burns inquiring about a lower potassium tube feed formula. Lowest K+ formula is Nepro but it's very high concentration would not be suitable for delivery via jtube and pt already with multiple concerns of tube malfunction/clogging. Pts current formula of osmolite 1.5 at 50ml/hr provides 2.1grams daily K which is considered low so would recommend to continue same formula. Renal has orderd Ghazal.
[2020-10-26 15:36] VITALS: BP 130/71
--- NOTE | 2020-10-26 18:48 | NUR ---
ASSESSMENT CHARTED - MEDS PER AUG - PATIENT WITH MOANING AND GROANING AND YELLING OUT HELP ME - PT WILL NOT RESPOND WHEN ASKED WHAT IS WRONG EXCEPT TO SAY HELP ME. PT TURNED Q 2-HOURS. WOUND CARE INTO SEE PATIENT TODAY. PT GIVEN FENTANYL AND DIAUDID PER AUG IN ATTEMPT TO KEEP PATIENT COMFORTABLE - PT CONTINUES TO MOAN BUT NOT MUCH DOED DRIFT OFF TO SLEEP AT TIMES. TUBE FEEDING CONTINUE ORDERED - SPOKE WITH STOCK LETTERER AND SHE STATED THAT ANY OTHER TUBE FEEDING IS TO THICK AND CLOGS J TUBE - PT HAS BEEN A CHALLENGE WITH TUNBE FEEDING - STOCK LETTERER ASKED AT DR ALSTON REQUEST DUE TO K+ CONTENT. G TUBE REMAINS TO SUCTION - CONTINUES TO LEAK MOD AMOUNT. SEEN BY DR QUIJANO ( [facility]) THIS SHIFT ORDERED. MOTHER AND ANOTHER GUEST INTO SEE PATIENT THIS AM - DR VICENTE SPOKE WITH MOTHER WHILE SHE WAS HERE.
[2020-10-26 19:06] VITALS: BP 116/66
[2020-10-27 04:47] VITALS: BP 116/62
--- NOTE | 2020-10-27 04:59 | NUR ---
ASSUMED PT CARE AROUND 1900. PT MOANS AND YELLS OUT OFTEN. WHEN ASKED IF HE IS IN PAIN, HE SOMETIMES NODS HIS HEAD YES. HE DOES NOT VERBALIZE WHAT HE NEEDS WHEN ASKED. PRN PAIN MEDICATIONS GIVEN INDICATED. HIS MOANING TEMPORARILY IMPROVES AFTER RECEIVING PAIN MEDS. TF INFUSING VIA J TUBE. NO RESIDUALS NOTED. REPOSITIONED Q2H TO PREVENT FURTHER SKIN BREAKDOWN. PRAFO BOOTS REMAIN IN PLACE. SANTIAGO TO DD WITH ADEQUATE URINE OUTPUT. VSS. AFEBRILE. NOT PROGRESSING WELL TOWARD POC GOALS. WILL CONTINUE TO MONITOR.
[2020-10-27 06:18] LABS: ALBUMIN 1.6 g/dL (3.4-5.0); CALCIUM 7.9 mg/dL (8.5-10.1); CREATININE 2.2 mg/dL (0.7-1.3); PHOSPHORUS 4.7 mg/dL (2.6-4.7)
[2020-10-27 06:20] LABS: POTASSIUM 5.8 mmol/L (3.5-5.1)
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
[2020-10-27 08:14] VITALS: BP 146/83
--- NOTE | 2020-10-27 10:25 | NUR ---
Renal would like to change tube feed to nepro. Ordered 50ml/hr will overfeed pt since it is more caloric dense than the osmolite so adjust to new goal of 40ml/hr. Please make sure tube is flushed adequately to prevent reclogging.
--- NOTE | 2020-10-27 11:02 | NUR ---
Received awake on bed. Due medications given as prescribed, crushed and given to feeding tube. Non verbal, moans from time to time. On CCT; no signs of chest pain, crushing sensation and heaviness. Assisted in ADLs. On room air. Vital signs stable. On Osmolite at 50cc/hr- shuttle repairer modified rate to 40cc/hr; infusing well thru J tube; water flushes given as well. With G tube connected to LIS- draining brown output; measured and recorded; GI DIRECTOR OF DISTANCE LEARNING informed re: recent total output; both gauze dressing C/D/I- monitored for any saturation. On blood sugar monitoring, taken and recorded every [address] bundle in place. With 3 lumen IJ at R- NS at 80cc/hr- changed to D50.22 at 125cc/hr as per Dr Cornelius; IVF and rate changed as ordered. With sands in place; draining well; output measured and recorded accordingly. Pt turned regularly on his sides; on low airloss mattress. Maintained on isolation due to VRE in urine. With signs of pain noted- PRN pain meds given as prescribed. With high potassium from AM labs- Dr Burns aware- med orders obtained and given as prescribed. Pt's Mother called this AM- update given. Pt seen and examined by Dr Burns this AM- updated re: Dr Cornelius, Gasto DIRECTOR OF DISTANCE LEARNING and shuttle repairer's recommendations. To continue monitoring patient.
[2020-10-27 15:16] VITALS: BP 116/62
[2020-10-27 20:00] VITALS: BP 136/87
--- NOTE | 2020-10-28 01:45 | NUR ---
ASSESSMENT COMPLETED. PT AWAKE. CLOSES EYES FOR SHORT PERIODS OF TIME THEN OPENS THEM AND YELLS OUT. I ASSURED PT THAT WE WILL REPOSITION HIM AND MEDICATE HIM FOR PAIN, PT CONTINUES TO YELL EVEN AFTER BEING MEDICATED. SANTIAGO WITH ADEQUATE DRAINAGE.G TUBE TO LIS-NO DRAINAGE AROUND INSERTION SITE. CONTINUES FEEDINGS THRO THE J TUBE-NEPRO 1.8@40/HR. PT IS AFEBRILE. BLOOD SUGAR AT MIDNOC WAS 90.REPOSITIONING PROVIDED, SMEARS OF RUNNY STOOL NOTED. SR/ST ON TELEMETRY. STABLE ON ROOM AIR.WILL CONTINUE WITH CARE THRO END OF SHIFT.
[2020-10-28 03:30] VITALS: BP 130/89
[2020-10-28 05:17] LABS: HEMATOCRIT 31.2 % (42.0-52.0); MCHC 32.1 g/dL (28.0-37.0); MCV 84.3 fL (80.0-100.0); RBC 3.71 mil/uL (4.50-6.00); RDW 19.9 % (10.5-14.5); WBC 8.5 thou/uL (4.0-11.0)
[2020-10-28 05:42] LABS: ALBUMIN 1.5 g/dL (3.4-5.0); CALCIUM 8.3 mg/dL (8.5-10.1); PHOSPHORUS 4.4 mg/dL (2.5-4.9)
[2020-10-28 06:13] LABS: POTASSIUM 4.5 mmol/L (3.5-5.1)
[2020-10-28 08:19] VITALS: BP 130/90
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
[2020-10-28 11:42] VITALS: BP 102/69
--- NOTE | 2020-10-28 12:35 | NUR ---
ASSUMED PT CARE THIS AM. PT VSS, ALERT AND ABLE TO ANSWER YES/NO QUESTIONS NONVERBALLY. IV PATENT, FLUIDS INFUSING. G TUBE IS CONECTED TO LOW INTERMITTENT SUCTION DRAINING WELL. J TUBE BEING USED FOR MEDS AND TUBE FEEDINGS, TUBE FEEDINGS INFUSING WITHOUT RESIDUAL AT GOAL RATE AND MEDS GIVEN THROUGH TUBE WITHOUT ISSUE. PATIENT IS CONTRACTED IN ALL EXTREMETIES, ABLE TO MOVE LEFT HAND. PRAFO BOOTS ON. WOND DRESSING CHANGED BY WOUND CARE NURSE. PATIENT HAS A SANTIAGO CATHETER DRAINING WELL. PATIENT BEING REPOSITIONED Q2H. BLOOD SUGARS BEING MONITORED Q6H. PATIENT ON TELE. FALL PRECAUTIONS ARE IN PLACE.
--- NOTE | 2020-10-28 14:15 | NUR ---
Pt dcing back to ltc at [facility] today. Nursing to call report. Cm will fax orders once finalized. Kennedy at [facility] notified and they are holding his bed. [facility] form faxed and dc time to be confirmed once orders are faxed. Pt's mother and brother here at bedside this am and aware of/agreeable for dc today. Encouragement given for them to call [facility] to advise on any new visitor policy and to schedule a care plan meeting. Chart copy request to be sent with the pt.
[2020-10-28 15:08] VITALS: BP 131/83
== END 2020-10-28 17:28 | DRG 871 ==
LOC: ER 08:11 → EROBS 11:04 → ICU 11:04 → 2N 10-20 18:35
PROVIDERS: Emergency Medicine; Hospitalist; Internal Medicine; Internal Medicine Nephrology; Nurse Practitioner Family; ADMIT Internal Medicine; ATTEND Internal Medicine
PROC: 02H633Z Insertion of Infusion Device into Right Atrium, Percutaneous Approach (ICD-10-PCS; principal; 2020-10-18)
PROC: 0D2DXUZ Change Feeding Device in Lower Intestinal Tract, External Approach (ICD-10-PCS; 2020-10-21)
DX: A41.9 Sepsis, unspecified organism (principal); L89.213 Pressure ulcer of right hip, stage 3; G82.50 Quadriplegia, unspecified; J18.9 Pneumonia, unspecified organism; E43 Unspecified severe protein-calorie malnutrition; R65.21 Severe sepsis with septic shock; N39.0 Urinary tract infection, site not specified; T83.511A Infection and inflammatory reaction due to indwelling urethral catheter, initial encounter; N17.9 Acute kidney failure, unspecified; E87.0 Hyperosmolality and hypernatremia; I50.22 Chronic systolic (congestive) heart failure; L03.818 Cellulitis of other sites; I42.9 Cardiomyopathy, unspecified; K94.13 Enterostomy malfunction; G93.49 Other encephalopathy; L89.159 Pressure ulcer of sacral region, unspecified stage; Z20.822 Contact with and (suspected) exposure to COVID-19; R65.20 Severe sepsis without septic shock; D63.8 Anemia in other chronic diseases classified elsewhere; T14.8XXA Other injury of unspecified body region, initial encounter; E87.5 Hyperkalemia; D64.9 Anemia, unspecified; I95.9 Hypotension, unspecified; R13.10 Dysphagia, unspecified; B96.5 Pseudomonas (aeruginosa) (mallei) (pseudomallei) as the cause of diseases classified elsewhere; Z86.73 Personal history of transient ischemic attack (TIA), and cerebral infarction without residual deficits; Y83.8 Other surgical procedures as the cause of abnormal reaction of the patient, or of later complication, without mention of misadventure at the time of the procedure; Y92.89 Other specified places as the place of occurrence of the external cause; V89.2XXA Person injured in unspecified motor-vehicle accident, traffic, initial encounter; Y93.89 Activity, other specified; Y99.8 Other external cause status
CPT/HCPCS: 10078; 10081; 50455

== ENCOUNTER 2020-11-08 16:16 | Emergency (ER) | payer OTHER ==
[~2020-11-08] VITALS: Ht 182.9 cm; Wt 40.8 kg
--- NOTE | ~2020-11-08 | EMS ---
[address] [address] EMS Patient Care Report Name: DARNELL SORENSEN Room #: DEP ERASTO Gutierrez#: [id number] Admission: 11/08/20 Attend Phys: Discharge: 11/08/20 Date of : 58 Report #: [id number] THIS REPORT FOR: //name// Report Transmitted: 11/09/2020 23:08 EMS Care Summary [place], [place]/[facility] Incident [id number] @ 11/08/2020 15:47 Incident Location [address] [place] [address] 506 Patient DARNELL SORENSEN Male, 60 Years 1960 Patient Address [address] [place], [place] [id number] Patient History Congestive Heart Failure (CHF),Stroke/CVA,Gastro-Esophageal Reflux Disease (GERD),Glaucoma,Hypotension, Patient Allergies No known allergies, Patient Medications Ferrous Sulfate, Lactulose, Midodrine, Xanax, Prevacid, Baclofen, Aspirin, Metoclopramide, Tramadol, Apixaban, Acetaminophen, Enoxaparin, Zofran, Chief Complaint G-TUBE REMOVAL Disposition Transported No Lights/[place] [facility] Reason Hemorrhage/Laceration Transported To [facility] Narrative PUMPER 28/MEDIC 30 WERE DISPATCHED TO THE ADDRESS LISTED PREVIOUSLY IN THIS [address] [address] EMS Patient Care Report Name: DARNELL SORENSEN Room #: DEP [facility]#: [id number] Admission: 11/08/20 Attend Phys: Discharge: 11/08/20 Date of : 58 Report #: [id number] REPORT ON A HEMMORAGE. UPON ARRIVAL, EMS OBSERVED ONE MALE PATIENT LAYING SUPINE IN BED. PATIENT WAS TRACKING EMS UPON APPROACH. SHELTER STAFF INFORMED EMS THAT THEY OBSERVED THE PATIENT'S G-TUBE TO BE OUT AND ON THE FLOOR DURING PATIENT ROUNDING. SHELTER STAFF STATED THAT THEY DID NOT FEEL COMFORTABLE REINSERTING THE TUBE. PATIENT WAS THEN PLACED ON THE COT AND MOVED TO THE AMBULANCE WITHOUT INCIDENT. ONCE IN THE AMBULANCE, VITAL SIGN MONITORING CONTINUED. ONCE ENROUTE TO THE RECEIVING FACILITY ([facility]), VITAL SIGN MONITORING CONTINUED AND RADIO REPORT WAS GIVEN. UPON ARRIVAL AT THE RECEIVING FACILITY, PATIENT WAS MOVED FROM THE AMBULANCE TO THE HOSPITAL ROOM WITHOUT INCIDENT. VERBAL REPORT WAS GIVEN TO THE PATIENT NRUSE AND PATIENT CARE WAS TRANSFERRED. PATIENT REMAINED ON EMS COT FUR REINSERTION PROCEDURE. SEE ADDITIONAL EPCR FOR TRANFER TO FACILITY. 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 It is designed to provide pertinent information for the following purposes: continuity of care, clinical quality, and state data reporting. The complete legal record is available to ED staff [address] [address] EMS Patient Care Report Name: DARNELL SORENSEN Room #: DEP ERASTO Gutierrez#: [id number] Admission: 11/08/20 Attend Phys: Discharge: 11/08/20 Date of : 58 Report #: [id number] and administrators of the receiving hospital in [employer]'s Patient Tracker. All data is provided "as is."
[2020-11-08 16:17] VITALS: BP 96/49
== END 2020-11-08 16:35 ==
LOC: ER 16:16
DX: K94.23 Gastrostomy malfunction (principal); I50.9 Heart failure, unspecified; Z79.899 Other long term (current) drug therapy; Z79.82 Long term (current) use of aspirin

== ENCOUNTER 2020-12-15 15:02 | Inpatient (IN) | payer OTHER ==
[~2020-12-15] VITALS: Ht 177.8 cm; Wt 56.0 kg
--- NOTE | ~2020-12-15 | EMS ---
[facility] [address] [place] [address] EMS Patient Care Report Name: DARNELL SORENSEN Room #: 211-P ADM IN M.R.#: [id number] Admission: 12/15/20 Attend Phys: Bjorn Jung Discharge: Date of : 58 Report #: [id number] THIS REPORT FOR: //name// Report Transmitted: 12/21/2020 07:30 EMS Care Summary [place], [place]/[facility] Incident [id number] @ 12/15/2020 14:31 Incident Location [address] [place] [address] 501 Patient DARNELL SORENSEN Male, 60 Years 1960 Patient Address [address] [place] [address] [address] [place] [address] Patient History Congestive Heart Failure (CHF),Stroke/CVA,Gastro-Esophageal Reflux Disease (GERD),Glaucoma,Hypotension, Patient Allergies No known allergies, Patient Medications Apixaban, Prevacid, Baclofen, Enoxaparin, Acetaminophen, Ferrous Sulfate, Aspirin, Zofran, Midodrine, Xanax, Lactulose, Metoclopramide, Tramadol, Chief Complaint Blood from penis after sands insertion Disposition Transported No Lights/[facility] Dispatch Reason Hemorrhage/Laceration Transported To [facility] Narrative Called for a hemorrhage. Upon arrival, OR staff reported the pt had bright red [facility] [address] [place] [address] EMS Patient Care Report Name: DARNELL SORENSEN Room #: 211-P ADM IN M.R.#: [id number] Admission: 12/15/20 Attend Phys: Bjorn Jung Discharge: Date of : 58 Report #: [id number] blood coming from re-insertion of sands cath. Vitals obtained. They requested transport to [facility] ER for further eval & tx. Hemorrhage has stopped at this time. Pt moved to the EMS cot and loaded into the ambulance w/o incident. Vitals obtained. En route: no changes. RR to ER. Arrived: Pt taken to ER #1 and moved to their bed w/o incident. Pt care & report to ER staff. Initial Vitals @14:45P: 106,R: 16,BP: 122/84,Pain: 6/10,GCS: 15,SpO2: 98,Revised Trauma: 12, @14:53P: 92,R: 18,BP: 142/76,Pain: 0/10,GCS: 15,SpO2: 96,Revised Trauma: 12, Assessments @14:45MENTAL:Person Oriented,Time Oriented,Event Oriented,Place Oriented,SKIN:HEENT:LUNG SOUNDS:ABDOMEN:PELVIS//GI:Pelvis GUOther,Hematuria,EXTREMITIES:Left Arm: Other,Left Leg: Other,Right Arm: Other,PULSE:Radial: 2+ Normal,NEURO: Impression Hemorrhage Procedures @14:44ALS AssessmentResponse: UnchangedSucceeded@14:48StretcherResponse: Unchanged Timeline 14:29,Call Received 14:29,Dispatch Notified 14:31,Dispatched 14:33,En Route 14:42,On Scene 14:44,At Patient 14:44,ALS Assessment,Response: UnchangedSucceeded, 14:45,BP: 122/84 M,PULSE: 106,RR: 16 R,SPO2: 98 Ox,ETCO2: ,BG: ,PAIN: 6,GCS: 15, 14:48,Stretcher,Response: Unchanged 14:50,Depart Scene 14:53,BP: 142/76 M,PULSE: 92,RR: 18 R,SPO2: 96 Ox,ETCO2: ,BG: ,PAIN: 0,GCS: 15, 14:57,At Destination 15:16,Call Closed Disclaimer v1.1 Copyright 2020 [employer] This EMS Care Summary contains data elements from the applicable legal record (which may be displayed differently). It is designed to provide pertinent information for the following purposes: continuity of care, clinical quality, and state data reporting. The complete legal record is available to ED staff and administrators of the receiving hospital in [facility]'s Patient Tracker. All data [address] [address] EMS Patient Care Report Name: HAILEY SORENSENANO Room #: 211-P ADM IN M.R.#: [id number] Admission: 12/15/20 Attend Phys: Bjorn Jung Discharge: Date of : 58 Report #: [id number] is provided "as is."
[2020-12-15 15:03] VITALS: BP 144/87
[2020-12-15 16:26] LABS: ABSOLUTE NEUTROPHILS 6.3 thou/uL (1.4-8.2); BASOPHILS 0.9 % (0.0-2.0); EOSINOPHILS 2.5 % (0.0-3.0); HEMATOCRIT 27.7 % (42.0-52.0); HEMOGLOBIN 8.8 gm/dL (14.0-18.0); LYMPHOCYTES 17.1 % (24.0-44.0); MCH 27.3 pg (26.0-34.0); MCHC 31.9 g/dL (28.0-37.0); MCV 85.5 fL (80.0-100.0); MONOCYTES 7.2 % (1.0-8.0); PLATELET COUNT 448 thou/uL (150-400); POLYS 72.3 % (36.0-66.0); RBC 3.24 mil/uL (4.50-6.00); WBC 8.8 thou/uL (4.0-11.0)
[2020-12-15 16:37] LABS: CALCIUM 8.6 mg/dL (8.5-10.1); CREATININE 0.5 mg/dL (0.7-1.3); POTASSIUM 3.5 mmol/L (3.5-5.1)
[2020-12-15 16:42] LABS: TOTAL BILIRUBIN 0.2 mg/dL (0.2-1.0); TOTAL PROTEIN 7.1 g/dL (6.4-8.2)
[2020-12-15 16:56] LABS: URINE BLOOD 3+ (Negative); URINE CLARITY CLOUDY; URINE COLOR BROWN; URINE GLUCOSE-RANDOM* NEGATIVE (Negative); URINE KETONES NEGATIVE (Negative); URINE PROTEIN (DIPSTICK) 2+ (Negative); URINE SPECIFIC GRAVITY >= 1.030 (1.005-1.035)
[2020-12-15 16:59] LABS: ICTOTEST (BILI CONFIRMATORY) Negative (Negative); URINE BILIRUBIN NEGATIVE (Negative); URINE LEUKOCYTES-REFLEX 1+ (Negative); URINE NITRITE-REFLEX POSITIVE (Negative)
[2020-12-15 17:09] LABS: SQUAMOUS None Seen /LPF (0-3)
[2020-12-15 17:10] LABS: CASTS None Seen /LPF (None Seen); CRYSTALS None Seen /LPF (None Seen); URINE RBC >20 Many /HPF (NONE SEEN); URINE WBC-REFLEX 6-15 Few /HPF (0-5)
[2020-12-15 21:08] VITALS: BP 86/46
[2020-12-15 22:10] VITALS: BP 96/47
[2020-12-15 22:37] VITALS: BP 100/54
--- NOTE | 2020-12-16 00:39 | NUR ---
NURSE UNABLE TO ACCESS PATIENTS PEG TUBE. VEHICLE DETAILER AND CHARGE NURSE NOTIFIED OF SITUATION AND ARE WORKING WITH THIS NURSE FOR WAYS TO SAFELY ACCESS PATIENTS TUBE. ORDERS RECEIVED FOR FLUIDS THAT WILL HELP MAINTAIN PATIENTS BLOOD SUGAR. NURSER TO CONTINUE ASSESSING AND SEEKING REMEDIES.
[2020-12-16] MEDS ORDERED: CAROSPIR25 MG/5 ML PER TUBE (01:56)
--- NOTE | 2020-12-16 02:18 | NUR ---
PATIENT IS A NEW ADMISSION TO THE UNIT THIS SHIFT. HE ARRIVED VIA CART FROM THE ER AND WAS TRANSFERRED TO THE BED WITHOUT INCIDENT. PATIENT IS MOSTLY ALERT AND ORIENTED AND ABLE TO PARTICIPATE IN HIS ADMISSION. NURSE UNABLE TO ACCESS PEG TUBE DUE TO MECHANICAL PROBLEM SO ORDERS OBTAINED FOR FLUID WITH DEXTROSE. NURSE TO COMPLETE ADMISSION AND INITIATE PLAN OF CARE.
[2020-12-16 04:19] VITALS: BP 100/57
--- NOTE | 2020-12-16 07:14 | EKG ---
[address] [address] ELECTROCARDIOGRAM REPORT Name: DARNELL SORENSEN Room #: 211-P ADM IN M.R.#: [id number] Admission: 12/15/20 Attend Phys: Bjorn Jung Discharge: Date of : 58 Report #: [id number] [facility] ED Test Date: 2020-12-15 Test Time: 15:19:16 Pat Name: DARNELL SORENSEN Department: Room: 211 Gender: M Infantry Senior Sergeant: VIKI TRAN : 1960 Requested By: Jimmy Albright Order Number: [id number] MD: Jules Ritter Measurements Intervals [place] Rate: 148 P: -48 LA: 105 QRS: 6 QRSD: 147 T: 121 QT: 349 QTc: 548 Interpretive Statements Suspect A. FLutter with 2:1 Block Left bundle branch block Artifact in lead(s) III,V2,V4,V5,V6 Compared to ECG 10/18/2020 10:16:33 Sinus tachycardia no longer present Electronically Signed On 12-16-2020 7:13:53 CDT by Jules Ritter [email or web address] <ELECTRONICALLY SIGNED> By: Jules Ritter MD, [facility] 12/16/20 0713 1519 1519 Jules Ritter MD, [facility] /EPI
[2020-12-16 08:02] VITALS: BP 97/53
--- NOTE | 2020-12-16 09:59 | NUR ---
WOUND CONSULT; THE PATIENT HAS PRESSURE ULCERS WITH NECROSIS TO THE SCAPULA,SACRUM,LEFT HEEL AND LLE THAT MAY REQUIRE DEBRIDEMENT THERFORE I WILL CONSULT DR MOISES GARDNER MD. DISCUSSED WITH RN
[2020-12-16 11:16] VITALS: BP 109/65
--- NOTE | 2020-12-16 12:58 | NUR ---
Case opened to follow for dc planning. Pt is known to cm from previous admissions. He was recently here in October and was dc'd back to [facility] where his a terminal carman care resident. He has had multiple admissions due to his g/j tube issues. He was admitted with hematuria/needing sands replaced and UTI. Wound care has also been consult. long term MAR reveiwed and it appears the pt was on TPN at the facility. Nursing updated and notified the attending as this may be the pt's primary source of nutrition. Pt's mother has called in to get an update and noted he was recently at [facility] due to his feeding tube issues. Message left for Miya in admissions. Bowling Pin Refinisher attempted to call the facility DON x 2 to clarify the plan of care and see what the plan was for the TPN and any appts or f/u at [facility]. Case discussed with nursing. Will follow.
--- NOTE | 2020-12-16 13:21 | NUR ---
REQUEST TO PLACE A PICC ON THIS PT WITH POSSIBLE TICC INFECTION CALLED IN. ASKED TO HAVE ID CALLED AND CLARIFY A NEW LINE NEEDS PLACED UNTIL THE OLD ONE PULLED. PT WILL NEED AN IJ CL DUE TO SEVERE CONTRACTURES IN ALL EXTREM DUE TO QUADRAPLEGIA. RN TO SPEAK WITH MD AND CLARIFY ORDERS
--- NOTE | 2020-12-16 14:21 | NUR ---
Nutrition: Pt recently on TPN for nutrition at facility. Nsg reports unable to access PEG due to mechanical dysfunction. If within plan of care, REC start TPN standard formula at 75 mL/hr to meet 95-105% of needs.
[2020-12-16 15:27] VITALS: BP 105/60
--- NOTE | 2020-12-16 15:41 | NUR ---
DR PERERA WANTED RT TICC REMOVED AND A NEW IJ PLACED. + BC AND ORDER CLARIFIED WITH JARED DREW. 4FRDBL IJ PLACED AFTER TICC REMOVED
--- NOTE | 2020-12-16 15:59 | NUR ---
IR REMOVE RIGHT CHEST TICC LINE AND SENT TIP FOR CULTURES. IV TEAM START RIGHT IJ DL CATHETER. GI INSTRUCT KEEP PT NPO AND THEY WILL START TPN. UPDATE PT'S MOTHER VIA PHONE. SENT FOR DISCHARGE RECORD FROM [facility]. WILL CONTINUE TO ASSESS.
--- NOTE | 2020-12-16 16:35 | NUR ---
MEGAN PULLED BACK 4CM
--- NOTE | 2020-12-16 17:44 | NUR ---
SANKET DREW IV TEAM REPORTS CENTRAL LINE OK TO USE.
[2020-12-16 19:09] VITALS: BP 112/61
[2020-12-16 23:08] VITALS: BP 94/52
[2020-12-17 07:15] VITALS: BP 112/61
[2020-12-17 07:56] LABS: MCH 26.8 pg (26.0-34.0); MCHC 31.8 g/dL (28.0-37.0); MCV 84.3 fL (80.0-100.0); RBC 2.61 mil/uL (4.50-6.00); RDW 16.7 % (10.5-14.5); WBC 3.9 thou/uL (4.0-11.0)
[2020-12-17 08:10] LABS: ALBUMIN 1.6 g/dL (3.4-5.0); CALCIUM 7.9 mg/dL (8.5-10.1); CREATININE 0.4 mg/dL (0.7-1.3); MAGNESIUM 1.2 mg/dL (1.8-2.4); TOTAL BILIRUBIN 0.3 mg/dL (0.2-1.0); TOTAL PROTEIN 5.8 g/dL (6.4-8.2)
--- NOTE | 2020-12-17 08:23 | EKG ---
[place] [address] [address] [employer] [place] [address] ELECTROCARDIOGRAM REPORT Name: DARNELL SORENSEN Room #: 211- ADM IN M.R.#: [id number] Admission: 12/15/20 Attend Phys: Bjorn Jung Discharge: Date of : 58 Report #: [id number] [facility] Test Date: 2020-12-16 Test Time: 18:19:12 Pat Name: DARNELL SORENSEN Department: Room: 211 P Gender: M Hostel Manager: FSCHWALLEEANNE : 1960 Requested By: Yaw Dockery Order Number: [id number] MD: Jose Luis Interiano Measurements Intervals [employer] Rate: 132 P: 0 [place]: 104 QRS: 44 QRSD: 155 T: 138 QT: 355 QTc: 526 Interpretive Statements Sinus tachycardia Left atrial enlargement Left bundle branch block Baseline wander in lead(s) V5 Compared to ECG 12/15/2020 15:19:16 Heart rate has slowed Electronically Signed On 12-17-2020 8:10:58 CDT by Jose Luis Interiano [email or web address] <ELECTRONICALLY SIGNED> By: Jose Luis Interiano MD, [facility] 12/17/20 0810 1819 1819 Jose Luis Interiano MD, [facility] /EPI
[2020-12-17 09:12] LABS: POTASSIUM 2.9 mmol/L (3.5-5.1)
[2020-12-17 11:02] VITALS: BP 95/54
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
--- NOTE | 2020-12-17 14:58 | NUR ---
Visited with the pt's mother and auntie as they are here to visit with the pt. Pt had f/u with [facility] today and was on TPN for two weeks while the skilled nursing monitored his ostomy output. Records from [facility] rec'd today and GI is reveiwing them. Mother updated. Clinical update faxed to [facility].
[2020-12-17 15:05] VITALS: BP 103/63
--- NOTE | 2020-12-17 16:52 | NUR ---
VAT CONSUTLED FOR AN OTW EXCHANGE FOR HIS RT IJ DL LINE MALPOSITIONING FROM BEING PULLED BACK 17CM. OTW EXCHANGE WAS SUCCESSFUL THE NEW LINE IS 20CM WITH 5CM EXT AND PEAKED PWAVE CAPTURED WITH ECG. NO NEEDLES INVOLVED IN THE OTW EXCH.
[2020-12-17 20:15] VITALS: BP 112/58
[2020-12-18 04:28] VITALS: BP 97/51
[2020-12-18 06:45] LABS: HEMATOCRIT 23.2 % (42.0-52.0); HEMOGLOBIN 7.5 gm/dL (14.0-18.0); MCH 26.8 pg (26.0-34.0); MCHC 32.2 g/dL (28.0-37.0); MCV 83.2 fL (80.0-100.0); RBC 2.79 mil/uL (4.50-6.00); RDW 16.8 % (10.5-14.5); WBC 4.8 thou/uL (4.0-11.0)
[2020-12-18 06:55] LABS: ALBUMIN 1.6 g/dL (3.4-5.0); CALCIUM 7.8 mg/dL (8.5-10.1); CREATININE 0.3 mg/dL (0.7-1.3); MAGNESIUM 1.3 mg/dL (1.8-2.4); PHOSPHORUS 2.3 mg/dL (2.5-4.9); POTASSIUM 3.1 mmol/L (3.5-5.1); TOTAL BILIRUBIN 0.2 mg/dL (0.2-1.0); TOTAL PROTEIN 5.7 g/dL (6.4-8.2)
[2020-12-18 07:15] VITALS: BP 103/58
--- NOTE | 2020-12-18 07:46 | NUR ---
PATIENTS CARES WERE ASSUMED AT SHIFT CHANGE. PATIENT WAS ASSESSED AND MEDS WERE PASSED. PATIENT HAD ISSUES WITH HIS RIGHT LEG LAST NIGHT WITH MUSCEL CRAMPS. WORKED WITH HIS LEG TO GET HIM SOME RELIEF. HIS CONTRATURES APPER TO GET MORE INTENSE THAN HIS LAST VISIT. ROUNDS WERE MADE. BED ALARM IS ON. THE BED IS IN A LOW AND LOCKED POSITION
[2020-12-18 11:15] VITALS: BP 106/62
--- NOTE | 2020-12-18 14:31 | NUR ---
Surgery here to replace his g tube as it is not useable for po meds or flushes. Plans in motion for GJ placement per GI Monday if all in agreement. Pt still on TPN for nutritional support. Update given to the LINNETTE Mcmahon at [facility]. He is on iv atb for pos blood cultures as well. Case discussed with the care team. Nursing and sx to f/u with family regarding poc.
[2020-12-18 17:00] VITALS: BP 89/47
--- NOTE | 2020-12-18 18:18 | NUR ---
WOUND CARE + NEW DRESSINGS TO WOUNDS OF BACK, SACRUM, HIPS COMPLETED TODAY. Q2 TURNS CONTINUED, OFTEN MORE FREQUENT DUE TO PAIN. PAIN MANAGED WELL WITH MORPHINE PRN AND REPOSITIONING. TPN CONTINUED. G TUBE WAS REPLACED AT BEDSIDE BY DR. BOND. UPPER ABD XRAY COMPLETED LATER THIS AFTERNOON. PATIENT REMAINED COOPERATIVE, A/O X 4, USED CALL LIGHT APPROPRIATELY AND OCCASSIONALLY WOULD YELL OUT.
[2020-12-18 20:45] VITALS: BP 90/52
[2020-12-19] VITALS (9 sets, daily range): BP systolic 77–106; BP diastolic 43–65
[2020-12-19 05:03] LABS: BASOPHILS 0.3 % (0.0-2.0)
[2020-12-19 05:06] LABS: ABSOLUTE NEUTROPHILS 3.4 thou/uL (1.4-8.2); EOSINOPHILS 4.7 % (0.0-3.0); HEMOGLOBIN 7.2 gm/dL (14.0-18.0); LYMPHOCYTES 29.7 % (24.0-44.0); MCH 28.6 pg (26.0-34.0); MCHC 34.4 g/dL (28.0-37.0); MCV 83.1 fL (80.0-100.0); MONOCYTES 6.9 % (1.0-8.0); PLATELET COUNT 285 thou/uL (150-400); POLYS 58.4 % (36.0-66.0); RBC 2.53 mil/uL (4.50-6.00); RDW 16.8 % (10.5-14.5); WBC 5.9 thou/uL (4.0-11.0)
[2020-12-19 05:29] LABS: ALBUMIN 1.6 g/dL (3.4-5.0); CALCIUM 7.7 mg/dL (8.5-10.1); CREATININE 0.4 mg/dL (0.7-1.3); MAGNESIUM 1.4 mg/dL (1.8-2.4); PHOSPHORUS 2.7 mg/dL (2.6-4.7); POTASSIUM 3.3 mmol/L (3.5-5.1); TOTAL BILIRUBIN 0.1 mg/dL (0.2-1.0); TOTAL PROTEIN 5.8 g/dL (6.4-8.2)
--- NOTE | 2020-12-19 18:32 | NUR ---
PT CARE ASSUMED AT 0700. ASSESSMENTS CHARTED. MEDICATIONS CHARTED. RIJ 2L PICC. SINUS RHYTHM, BUNDLE BRACH BLOCK. SANTIAGO, POSITIONAL TO PREVENT LEAKAGE. WOUND CARE. LIDOCAINE PATCH TO PTS RT HIP. TUBE FEEDING: NEPRO 10, GOAL OF 20. TPN. MORPHINE Q4 PRN. PT OFTEN COMPLAINS OF PAIN.
[2020-12-20] VITALS (7 sets, daily range): BP systolic 103–142; BP diastolic 55–80
--- NOTE | 2020-12-20 03:44 | NUR ---
PATIENT HAVING INCREASING BURPING AND HICCUPS WITH COMPLAINTS OF NAUSEA. TUBE FEED RESIDUALS HAVE BEEN UNDER 25 CC'S. TUBE FEED STOPPED WITH ANTI NAUSEA MEDICATION GIVEN. PROVIDER TO BE INFORMED EARLY THIS MORNING.
[2020-12-20 04:28] LABS: CALCIUM 8.4 mg/dL (8.5-10.1); CREATININE 0.5 mg/dL (0.7-1.3); MAGNESIUM 1.9 mg/dL (1.8-2.4); PHOSPHORUS 2.8 mg/dL (2.6-4.7); POTASSIUM 3.8 mmol/L (3.5-5.1)
[2020-12-20 09:28] LABS: HEMATOCRIT 24.4 % (42.0-52.0); HEMOGLOBIN 8.1 gm/dL (14.0-18.0); MCH 28.4 pg (26.0-34.0); MCHC 33.4 g/dL (28.0-37.0); MCV 85.3 fL (80.0-100.0); RBC 2.86 mil/uL (4.50-6.00); RDW 17.3 % (10.5-14.5); WBC 7.3 thou/uL (4.0-11.0)
--- NOTE | 2020-12-20 17:17 | NUR ---
PT CARE ASSUMED AT 0700. ASSESSMENTS CHARTED. MEDICATIONS CHARTED. 2L RIJ PICC. SINUS RHYTHM, BUNDLE BRANCH BLOCK. TPN AT 50 L/HR. TUBE FEEDING ON HOLD PER DR BOND. WOUND CARE PERFORMED. DEBRIDEMENT SCHEDULED FOR TOMORROW.
[2020-12-21 03:52] VITALS: BP 121/75
[2020-12-21 05:24] LABS: ABSOLUTE NEUTROPHILS 6.4 thou/uL (1.4-8.2); BASOPHILS 0.5 % (0.0-2.0); EOSINOPHILS 2.5 % (0.0-3.0); HEMATOCRIT 25.9 % (42.0-52.0); HEMOGLOBIN 8.7 gm/dL (14.0-18.0); LYMPHOCYTES 14.6 % (24.0-44.0); MCH 28.7 pg (26.0-34.0); MCHC 33.6 g/dL (28.0-37.0); MCV 85.5 fL (80.0-100.0); MONOCYTES 6.7 % (1.0-8.0); PLATELET COUNT 437 thou/uL (150-400); POLYS 75.7 % (36.0-66.0); RBC 3.03 mil/uL (4.50-6.00); RDW 17.4 % (10.5-14.5); WBC 8.4 thou/uL (4.0-11.0)
[2020-12-21 06:27] LABS: ALBUMIN 1.6 g/dL (3.4-5.0); CALCIUM 8.6 mg/dL (8.5-10.1); CREATININE 0.7 mg/dL (0.7-1.3); MAGNESIUM 2.1 mg/dL (1.8-2.4); PHOSPHORUS 3.7 mg/dL (2.6-4.7); POTASSIUM 4.2 mmol/L (3.5-5.1); TOTAL BILIRUBIN 0.2 mg/dL (0.2-1.0); TOTAL PROTEIN 6.3 g/dL (6.4-8.2)
[2020-12-21 07:32] VITALS: BP 120/68
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
[2020-12-21 14:00] VITALS: BP 119/75
[2020-12-21 14:14] VITALS: BP 119/75
[2020-12-21 16:00] VITALS: BP 109/67
--- NOTE | 2020-12-21 17:39 | NUR ---
VAT DISCUSSED WITH DR LOMBARDI FUTURE NEED FOR PORT OR TICC LINE, IF LONG-TERM TPN NEEDED AND THAT PT IS REQUIRING CVAD WITH EACH ADMISSION.
[2020-12-21 20:00] VITALS: BP 84/45; BP 84/48
--- NOTE | 2020-12-21 20:16 | NUR ---
RECEIVED THE PATIENT ON BED, CONSCIOUS AND ORIENTED.ON ROOMAIR BREATHING SPONTANEOUSLY.NOT IN PAIN OR DISTRESS.WITH RIGHT JUGULAR CENTRAL LINE INTACT.WITH SANTIAGO CATHETER INTACT.NOT IN PAIN OR DISTRESS.FALL PREVENTION MEASURES MAINTAINED.HAD WOUND DEBRIDEMENT TODAY.SCARAL TISSUE CULTURE WAS SENT FROM OR.ALL NEEDS ATTENDED.TURNED PATIENT EVERY 2 HOURS.
[2020-12-22 04:13] LABS: HEMATOCRIT 20.5 % (42.0-52.0); MCH 26.3 pg (26.0-34.0); MCHC 31.5 g/dL (28.0-37.0); MCV 83.3 fL (80.0-100.0); RBC 2.46 mil/uL (4.50-6.00); RDW 17.3 % (10.5-14.5); WBC 13.6 thou/uL (4.0-11.0)
[2020-12-22 04:18] LABS: HEMOGLOBIN 6.5 gm/dL (14.0-18.0)
[2020-12-22 04:30] LABS: CALCIUM 8.6 mg/dL (8.5-10.1); CREATININE 0.7 mg/dL (0.7-1.3); MAGNESIUM 1.8 mg/dL (1.8-2.4); PHOSPHORUS 3.8 mg/dL (2.6-4.7); POTASSIUM 4.2 mmol/L (3.5-5.1)
[2020-12-22 05:08] VITALS: BP 91/49
[2020-12-22 07:10] VITALS: BP 87/49
--- NOTE | 2020-12-22 08:52 | NUR ---
PT RESTING QUIETLY OFF AND ON, NEEDS FREQUENT REPOSITIONING AND TURNING, WOUND DEBRIEDMENT DONE TODAY DRESSINGS CI, VSS BP IN 80 TO 90'S SYST. TF ON HOLD AND TPN INFUSING, SANTIAGO WITH CLR YELLOW URINE, LRG BM THIS EVENING, PAIN MEDS GIVEN NEEDED FOR C/O HIP PAIN, REPORT GIVEN TO NEXT SHIFT TO CON'T PPOC.
[2020-12-22 09:42] VITALS: BP 104/50; BP 106/53
--- NOTE | 2020-12-22 10:13 | NUR ---
If tube feeds unable to start, increase tpn to 75ml/hr. If tube feeds will be intiated, rec osmolite 1.5 at 30ml/hr with goal of 50ml/hr
[2020-12-22 11:10] VITALS: BP 97/56
--- NOTE | 2020-12-22 17:22 | NUR ---
Updated [facility] and sp with Salome ANGLIN. Attempted x2 to call [facility] but cannot leave a message on cell phone as it is full. SP with mother. She reports she has a list of nursing homes from her neighbor. She is calling them to see if they would accept her son. She reports frustration with [facility]. She reports patient at [facility], went to [facility]. Placed at [facility] from [facility]. Patient from [facility] has been to [facility], and [facility]. Mother reports she would be interested in patient going to [facility]. DIscussed insurance auth regarding [facility]. Requested mother contact her son Kingsley to call caset as he is DP. following for dc planning.
--- NOTE | 2020-12-22 19:47 | NUR ---
RECEIVED THE PATIENT ON BED.NOT IN DISTRESS.HAD ONE UNIT OF RED BLOOD CELLS.NO TRANSFUSION REACTION AFTER.HAD NEW G AND J TUBE INSERTED.FEEDING STARTED AT 1510H.FEEDING WAS TOLERATED TILL THE END OF THE SHIFT.TO CONTINUE TO MONITOR FEEDING IF NO RESIDUAL TO INCREASE ORDERED.
[2020-12-22 21:01] VITALS: BP 113/57
[2020-12-23 01:00] VITALS: BP 87/45
[2020-12-23 04:02] VITALS: BP 110/66
--- NOTE | 2020-12-23 06:12 | NUR ---
PT RESTING IN BED WITH FREQUENT TURNS AND REPOSITIONING, SANTIAGO WITH YELLOW URINE OUT PUT, VSS, PRN PAIN MEDS GIVEN FOR C/O BACK AND LEG PAIN, TPN INFUSING, TF INFUSING AT 40 ML'S AN HOUR WITH GOAL 50ML/HR, 120ML H2O BOLUSES Q 4 HRS, NO RESIDUALS THIS SHIFT, G TUBE TO INTERMITTENT SUCTION WITH SMALL AMT OF YELLOW DRAINAGE, ORAL CARE PROVIDED, WILL CON'T TO MONITOR PER PPOC.
[2020-12-23 07:52] LABS: ALBUMIN 1.6 g/dL (3.4-5.0); CALCIUM 8.6 mg/dL (8.5-10.1); CREATININE 0.7 mg/dL (0.7-1.3); MAGNESIUM 1.7 mg/dL (1.8-2.4); PHOSPHORUS 2.6 mg/dL (2.5-4.9); POTASSIUM 3.8 mmol/L (3.5-5.1); TOTAL BILIRUBIN 0.2 mg/dL (0.2-1.0); TOTAL PROTEIN 5.9 g/dL (6.4-8.2)
[2020-12-23 08:00] VITALS: BP 91/60
[2020-12-23 09:25] LABS: HEMATOCRIT 24.4 % (42.0-52.0); MCH 27.3 pg (26.0-34.0); MCHC 32.7 g/dL (28.0-37.0); MCV 83.4 fL (80.0-100.0); RBC 2.93 mil/uL (4.50-6.00); RDW 17.1 % (10.5-14.5); WBC 10.1 thou/uL (4.0-11.0)
--- NOTE | 2020-12-23 12:29 | P ---
[facility] [place] [address] PROCEDURE REPORT Name: DARNELL SORENSEN Room #: 211-P ADM IN M.R.#: [id number] Admission: 12/15/20 Attend Phys: Bjorn Jung Discharge: Date of : 58 Report #: [id number] THIS REPORT FOR: cc: Stuart Winslow MD, Srinath MD Mc[place]hin[place],Austen Maguire MD ~ DOC #: [id number] cc: Dirk Barlow MD, MD Austen Guzman MD DATE OF SERVICE: 12/22/2020 PROCEDURE PERFORMED: PEG tube replacement with J-tube extension, upper endoscopy with PEG tube placement and J-tube extension. HISTORY OF PRESENT ILLNESS: The patient is a 60-year-old male with multiple medical problems, quadriplegic, multiple decubitus ulcers. He has had multiple abdominal surgeries. Unfortunately, he has had a PEG tube for decompression as he has a large amount of secretions, nausea and vomiting. He also had a J-tube that was placed separately at one point in the past. He was tolerating J tube feedings and using the G-tube for suction and decompression. The J-tube; however, has been removed, which was placed surgically. Because of his high risk for surgical intervention and scar tissue, I discussed the case with Dr. Dirk Barlow and the plan is to try and attempt a PEG J-tube through the current gastric fistula. Of note, the patient has had a previous gastrojejunostomy. DESCRIPTION OF PROCEDURE: The risks and benefits of the procedure were explained to the patient's mother. Those risks including but not limited to bleeding, perforation and the risk of sedation. She understood these risks and gave informed consent. Sedation was given using propofol per Anesthesia. Next, using a standard Olympus upper endoscope, the scope was placed in the patient's mouth and advanced under direct vision through the esophagus into the stomach, at which point the G-tube balloon was noted in the remaining gastric remnant. [place] pylorus was noted. I was able to advance the scope through the pylorus, however, with some resistance. The scope was then brought back into the stomach. The surgical anastomosis was noted. This was widely patent. There was moderate amount of bile that was suctioned away and entering through the anastomosis to the left was what appears to be the efferent limb as there was bile within this limb. This was patent. To the right appears to be the efferent limb. No bile in that area. At this point, the scope was brought back up into the patient's stomach and the previous G-tube was removed by simple traction. Next, a blue guidewire was inserted through the PEG fistula. This was grasped with a snare through the endoscope and then brought back up through the patient's mouth. Next, a 24-Tamazight Salvador-Cook PEG tube was secured to the blue guidewire and using a pull technique, was put into position without difficulty. Next, the scope was reintroduced into the patient's stomach. On [facility] [address] [place] [address] PROCEDURE REPORT Name: DARNELL SORENSEN Room #: 211-P ADM IN M.R.#: [id number] Admission: 12/15/20 Attend Phys: Bjorn Jung Discharge: Date of : 58 Report #: [id number] the J-tube, a suture was applied. This was grasped with a biopsy forceps and dragged into the efferent limb through the surgical anastomosis. The G-tube appears to be in good position at this point. At this point, the scope was then withdrawn and the procedure terminated. The patient tolerated the surgery well. IMPRESSION: 1. Surgical changes noted of gastrojejunostomy as described above. 2. Status post removal of old G-tube with replacement of new 24-Tamazight G-tube with J extension as described above. RECOMMENDATIONS: We will continue to use G port for intermittent suction. We will start tube feedings through the J portion at 20 mL per hour. Thank you for allowing me to participate in his care. Austen Morton MD CCM/DAGO <ELECTRONICALLY SIGNED> By: Austen Morton MD 12/23/20 1229 [id number] Austen Morton MD /nt
[2020-12-23 12:51] VITALS: BP 107/67
[2020-12-23 16:00] VITALS: BP 118/67
--- NOTE | 2020-12-23 20:02 | NUR ---
PT IS AXOX4, CALLS OUT FREQUENTLY, INAPPROPRIATE CALLING OUT. VS SOME SOFT BP, AFEBRILE, SR WITH BBB ON MONITOR. PT HAS PRESSURE WOUNDS ON L SCAPULA, L LUANNE, L ANTERIOR LEG, L HEEL AND SACRUM. WOUND DRESSING CHANGES COMPLETED BY WOUND NURSE. PT ON TUBE FEEDING OSMOLITE 1.5 AT 50ML/HR J TUBE. GOAL RATE 50ML/HR REDUCED AT NOC SHIFT CHANGE DUE TO SOME SPITTING UP OF BILE. NO RESIDUAL, Q4 H2O FLUSHES 120ML. G TUBE AT LOW INTERMITTENT SUCTIONING. POC IS TO CONTINUE TO ASSESS TUBE FEEDING TOLERANCE, PAIN MGMT. DR LOMBARDI CONSULTED. CASE MGMT CONSULTED. FALL PRECAUTIONS IN PLACE. NO CONCERNS AT THIS TIME.
--- NOTE | 2020-12-24 04:00 | NUR ---
PT ALERT AND ORIENTED X2. YELLS OUT EVEN THOUGH FREQUENT ROUNDING DONE ON PT. CHANGED WITH BOWEL MOVMENTS BUT HE CONTINUES TO YELL OUT PAIN MEDS GIVEN AND TOUCH PAD WITHIN REACH BUT ONGOING NURSING CARE OF PT AND MEDS NO NAUSEA. LOOSE BMS THIS EVENING PER NURSING.
[2020-12-24 04:15] VITALS: BP 115/63
[2020-12-24 08:00] VITALS: BP 123/70
[2020-12-24 11:20] VITALS: BP 112/60
--- NOTE | 2020-12-24 15:27 | NUR ---
[facility] has accepted the pt pending ins auth. They have submitted. Pt's mother here at bedside today and indicates family has requested [facility] to [facility] for ltc after ltac stay vs returning to [place]. Heather the liason for both facilities is here and indicates [facility] and [place] are sister facilities. Clinical updated provided. Heather indicates they can accept the pt at either facility when dc'd from [facility].
[2020-12-24 16:00] VITALS: BP 129/73
--- NOTE | 2020-12-24 19:46 | NUR ---
NO ACUTE CHANGES THIS SHIFT. TF RESTARTED AND ORDERS NOT TO TURN OFF UNLESS RN SPEAKS TO GI FIRST. PATIENT REPOSITIONED ORDERED. PRN MEDICATIONS GIVED PER ORDERS/MAR. ASSISTED PATIENT WITH MULT PHONE CALLS. WOUND CARE PROVIDED BY VIKI BUCKLEY.
[2020-12-24 20:05] VITALS: BP 122/68
[2020-12-25 04:46] VITALS: BP 112/61
--- NOTE | 2020-12-25 06:44 | NUR ---
ASSUMED PT CARE AT 1900, ALERT AND ORIENTED, ABLE TO VOICE CONCERNS, ASSESSMENTS CHARTED, TF INFUSING AT GOAL, NO RESIDUAL NOTED, MEDS GIVEN PER ORDERS, PAIN MEDS GIVEN FOR GENERALIZED PAIN WITH RELIEF, FREQUENT ROUNDING, NO ACUTE DISTRESS NOTED, WILL PASS ON REPORT
[2020-12-25 07:22] VITALS: BP 106/63
[2020-12-25 11:03] VITALS: BP 126/73
--- NOTE | 2020-12-25 12:24 | NUR ---
[facility] notes auth request is pending review. The liason from [facility] called this am and indicates that the health care facility administrator at [facility] has talked with the pt's mother and family is agreeable to return to [facility] after [facility] stay[facility]. Awaiting auth for LTAC stay.
[2020-12-25 15:31] VITALS: BP 106/63
--- NOTE | 2020-12-25 18:43 | NUR ---
Assumed pt care at 7am. Pt in bed most of the time sleeping on and off. Repositioned q2h in bed for comfort.Assessment completed.vss.Oral care done as needed.Pt c/o generalized bodyache.[place] given x1 per J tube with relief. Dr Oates and Cole here,order noted.Received call from pt's mom,updates given. Later this evening,drsg change done to several wound on pt's body.Pt vomited greenish unmeasurable emesis even though g tube was connected to wall suction. Tube deeding held for over one hour and mobile vac suction was ordered.Approx. 800ml output obtained from wall suction.Pt has large loose stool this evening. Complete bed bath given.Will continue to monitor.
[2020-12-25 19:41] VITALS: BP 107/66
[2020-12-25 22:45] VITALS: BP 107/66
[2020-12-26 03:00] VITALS: BP 89/54
--- NOTE | 2020-12-26 03:23 | NUR ---
ASSUMED PT CARE AT 1900, ALERT AND ORIENTED, ASSESSMENTS CHARTED, SR/BBB ON TELE, NORCO GIVEN X1 FOR GENERALIZED PAIN WITH RELIEF, FREQUENT ROUNDING ON PT, TF INFUSING AT GOAL, NO NAUSEA AND VOMTING NOTED THIS SHIFT, G-TUBE TO LIS, APPROXIMATELY 900CC OF GREEN OUTPUT, IV ACCESS CLOGGED IN BOTH PORTS, ORDERS FOR ALTEPLASE OBTAINED, ATTEMPTED TO UNCLOG WITH NO SUCCESS, CONSULT TO IV TEAM, NO NEEDS AT THIS TIME, WILL CONTINUE TO MONITOR AND FOLLOW POC
[2020-12-26 04:17] LABS: ABSOLUTE NEUTROPHILS 8.6 thou/uL (1.4-8.2); BASOPHILS 0.6 % (0.0-2.0); EOSINOPHILS 3.4 % (0.0-3.0); HEMATOCRIT 28.7 % (42.0-52.0); HEMOGLOBIN 9.3 gm/dL (14.0-18.0); MCH 26.8 pg (26.0-34.0); MCHC 32.3 g/dL (28.0-37.0); MCV 83.1 fL (80.0-100.0); MONOCYTES 7.6 % (1.0-8.0); POLYS 71.4 % (36.0-66.0); RBC 3.45 mil/uL (4.50-6.00); WBC 12.1 thou/uL (4.0-11.0)
[2020-12-26 04:22] LABS: PLATELET COUNT 477 thou/uL (150-400)
[2020-12-26 04:42] LABS: ALBUMIN 1.6 g/dL (3.4-5.0); CALCIUM 8.2 mg/dL (8.5-10.1); CREATININE 0.6 mg/dL (0.7-1.3); POTASSIUM 3.7 mmol/L (3.5-5.1); TOTAL BILIRUBIN 0.2 mg/dL (0.2-1.0); TOTAL PROTEIN 6.7 g/dL (6.4-8.2)
[2020-12-26 07:58] VITALS: BP 125/75
[2020-12-26 11:02] VITALS: BP 111/62
--- NOTE | 2020-12-26 15:02 | NUR ---
WOUND CARE DONE TO L HEEL, L ANTERIOR LOWER LEG, BILATERAL ISCHIUM, SACRUM AND L SCAPULA AT 1400 PER WOUND CARE ORDERS.
[2020-12-26 15:27] VITALS: BP 129/70
[2020-12-26 20:00] VITALS: BP 126/78
[2020-12-26 23:04] VITALS: BP 126/78
--- NOTE | 2020-12-27 03:11 | NUR ---
ASSUMED PT CARE AT 1900, ALERT, AWAKE, ORIENTEDX4, ABLE TO VOICE CONCERN, SR/BBB ON TELE, C/O GENERALIZED PAIN, PAIN MEDS GIVEN PRN WITH PARTIAL RELIEF, REPOSITIONED Q2 HRS AND PRN, PT KEEPS CALLING OUT FOR HELP, FREQUENT ROUNDING, MEDS GIVEN PER MAR, TF INFUSING AT GOAL, NO RESIDUAL NOTED, G-TUBE STILL TO LIS, ASSESSMENTS CHARTED, NO ACUTE DISTRESS NOTED, WILL CONTINUE TO MONITOR AND FOLLOW POC
[2020-12-27 04:00] VITALS: BP 122/69
[2020-12-27 07:15] VITALS: BP 129/78
[2020-12-27 11:10] VITALS: BP 121/73
--- NOTE | 2020-12-27 15:19 | NUR ---
ASSESSMENT CHARTED. PT ALERT AND AWAKE. WOUND CARE PROVIDED. TUBE FEEDING INFUSING ORDERED. IV ABX GIVEN. NO CONCERNS AT THIS TIME. PT PROGRESSING WELL TOWARDS DISCHARGE GOAL. NO CONCERNS AT THIS TIME.
[2020-12-27 16:20] VITALS: BP 114/79
[2020-12-27 20:15] VITALS: BP 106/62
[2020-12-28 04:45] VITALS: BP 104/57
[2020-12-28 08:22] VITALS: BP 106/63
[2020-12-28 12:42] VITALS: BP 107/59
--- NOTE | 2020-12-28 13:36 | NUR ---
Nutrition: Consider increasing tube feeds to 55 mL/hr to meet increased needs
[2020-12-28 16:45] VITALS: BP 128/78
--- NOTE | 2020-12-28 18:10 | NUR ---
RECEIVED THE PATIENT CONSCIOUS.ON ROOM AIR BREATHING SPONTANEOUSLY.NOT IN PAIN OR DISTRESS.WITH ONGOING FEEDING VIA J TUBE AND G TUBE IS ON SCUTION.WITH RIGHT JUGULAR CV LINE IN PLACE.WITH SANTIAGO CATHETER INTACT.NOT IN DISTRESS. WOUND DRESSING DONE TODAY ASPETICALLY.ALL NEEDS ATTENDED. TURNED FROM SIDE TO SIDE.
[2020-12-28 19:55] VITALS: BP 120/66
--- NOTE | 2020-12-28 20:00 | NUR ---
NOTED JG TUBE PARTIALLY OUT WITH BALLOON INTACT LEAKING TUBE FEEDING. JG TUBE TAPED IN PLACE. DR QUEEN NOTIFIED AND LEFT ORDERS TO GET KUB WITH GRASTOGRAPHIN IN AM. WILL CONT TO MONITOR.
[2020-12-29] VITALS (7 sets, daily range): BP systolic 83–127; BP diastolic 54–73
--- NOTE | 2020-12-29 06:00 | NUR ---
PT AWAKE MOST OF NIGHT. WANTING ICE CHIPS AND PAIN MED, VERY CONTRACTURED UO 550 CC THIS SHIFT. SINUS TACH KUB S/C FOR THIS AM. DRESSINGS INTACT. WILL CONT TO MONITOR
--- NOTE | 2020-12-29 10:09 | NUR ---
ASSUMED PT CARE AT 0700. AT 0800 PT ASSESSMENT PERFORMED CHARTED. 0930 WOUND CARE PROVIDED. PT TOLERATED PROCEDURE WELL AFTER PAIN MEDICATION ADMINISTRATION. PT NOT GIVEN MEDS VIA TUBE DUE TO JTUBE PULLED OUT. PT CLEANED UP AFTER INCONTINENT BOWEL. ALL DRESSINGS CHANGED, CLEAN, DRY AND INTACT. VSS. WILL CONTINUE TO MONITOR AND FOLLOW POC.
--- NOTE | 2020-12-29 11:42 | NUR ---
PT RESTING COMFORTABLE AT THIS TIME, PTS ASSESSMENT UNCHANGED. PTS VSS. WILL CONTINUE TO MONITOR AND FOLLOW POC.
--- NOTE | 2020-12-29 13:45 | NUR ---
Clinical updated faxed to the [facility] liason per their request. They are still working on ins auth for admission and noted ins requested additional clinical over the holiday weekend. Dc plan is to go to [facility] for ivatb and wound care prior to returning to ltc at [facility]. Will follow.
[2020-12-30 04:33] VITALS: BP 115/68
--- NOTE | 2020-12-30 05:14 | NUR ---
CARE ASSUMED AT 1900, ASSESSMENTS CHARTED, [address] ON THE MONITOR, TODDLER NANNY NOTIFIED, ORDERS RECEIVED AND IMPLEMENTED, FENTANYL GIVEN NEEDED FOR PAIN WITH PARTIAL RELIEF, GJ TUBE STILL OUT, BILE LEAKING, WOUND DRESSING INTACT, FREQUENT ROUNDING AND TURNS, NO NEEDS AT THIS TIME, WILL CONTINUE TO MONITOR AND FOLLOW POC
--- NOTE | 2020-12-30 08:48 | NUR ---
ASSUMED PT CARE AT 0700, PT RESTING. AT 0845 ASSESSMENT PERFORMED CHARTED. MEDICATION ADMINISTRATION. PTS JG TUBE STILL REMAINS OUT. PTS DRESSING CLEAN DRY AND INTACT AT THIS TIME. VSS. WILL CONTINUE TO MONITOR AND FOLLOW POC.
--- NOTE | 2020-12-30 08:59 | NUR ---
CONTACTED DR LOMBARDI ABOUT PT MEDS. CONTACTED GI AGAIN ABOUT PATIENTS JG TUBE BEING OUT.
[2020-12-30 09:18] VITALS: BP 117/71
[2020-12-30 12:15] VITALS: BP 116/65
--- NOTE | 2020-12-30 12:57 | NUR ---
CALLED REPORT TO GI PRODUCTION EDITOR. SHE STATES SHE WILL BE HERE IN ABOUT A HALF HOUR TO TAKE PATIENT FOR PROCEDURE.
--- NOTE | 2020-12-30 15:16 | NUR ---
[facility] has forwarded updated clinical to pt's ins plan for auth request. Pt getting G/J tube replaced again today. Likely dc ready for ltac tomorrow if auth rec'd.
--- NOTE | 2020-12-30 15:32 | NUR ---
PT IN GI LAB TO PLACE NEW JG TUBE.
[2020-12-30 17:35] VITALS: BP 121/72
--- NOTE | 2020-12-30 18:17 | NUR ---
PT RETURNED FROM PACU, VSS. PTS PEG TUBE IS IN ABD BINDING. PTS TUBE FEED RESTARTED AT 20ML/HR. WILL TITRATE UP TO GOAL OF 50ML/HR. PT RESTING AT THIS TIME. PAIN MEDICATION GIVEN DUE TO LEG PAIN.
[2020-12-30 19:17] VITALS: BP 130/80
--- NOTE | 2020-12-30 23:19 | NUR ---
PT'S J TUBE CAME OUT, THE SUTURE WAS UNDONE, TUBE FEED LEAKING, ABD BINDER WAS SATURATED. PEG TUBE REMAINED IN PLACE, NOTIFIED DR QUEEN, HE SAID TO CONSULT DIETARY IN THE MORNING PT MIGHT NEED TPN, PEG TUBE TO LIS. WILL MONITOR.
[2020-12-31 04:53] VITALS: BP 110/42
[2020-12-31 08:50] VITALS: BP 109/58
--- NOTE | 2020-12-31 09:07 | NUR ---
When tube feeds able to resume, recommend new tube feed goal of 55ml/hr of osmolite 1.5.
[2020-12-31 12:13] VITALS: BP 109/51
[2020-12-31 13:39] VITALS: BP 109/51
--- NOTE | 2020-12-31 14:35 | NUR ---
Case discussed with the care team. Pt's jtube became disloged again last nigt; GI and Surgery discussing options for replacement. Pt is wearing an abd binder. Ins plan has denied our request for LTAC ([facility]) stay even with peer to peer. They are indicating they will approve snf. [facility] updated and clincial faxed. [facility] will need to submit for ins auth for wound care/iv atb. Pt updated on the above at bedside. Message left for his brother Kingsley and senior mortgage underwriter attempted to call his Mom x 2 with busy signal. Will follow.
[2020-12-31 16:44] VITALS: BP 124/66
--- NOTE | 2020-12-31 18:49 | NUR ---
AT APPROX. 0900 THIS AM CONTACTED TIFFANY SALAZAR WATER FITNESS INSTRUCTOR TO INFORM HER THAT THE PATIENT HAD PULLED HIS J TUBE OUT DURING THE NIGHT BUT STILL HAS G TUBE, THAT WAS PLACED TO LOW SUCTION. RECIEVED ORDERS TO STOP SUCTION, NO TUBE FEEDING AND CLAMP G TUBE EXCEPT FOR MEDS AND DR. CHARLES WOULD BE AROUND LATER TO SEE PATIENT.
[2020-12-31 20:10] VITALS: BP 116/72
[2021-01-01 05:31] VITALS: BP 129/65
[2021-01-01 08:00] VITALS: BP 103/48
[2021-01-01 08:29] LABS: HEMATOCRIT 26.9 % (42.0-52.0); HEMOGLOBIN 8.7 gm/dL (14.0-18.0); MCH 26.1 pg (26.0-34.0); MCHC 32.2 g/dL (28.0-37.0); MCV 81.2 fL (80.0-100.0); RBC 3.31 mil/uL (4.50-6.00); RDW 16.7 % (10.5-14.5); WBC 8.3 thou/uL (4.0-11.0)
[2021-01-01 08:42] LABS: CALCIUM 8.2 mg/dL (8.5-10.1); CREATININE 0.5 mg/dL (0.7-1.3)
--- NOTE | 2021-01-01 15:21 | NUR ---
Case discussed with the care team. IR unable to replace his J tube. SX/IR/GI discussing options on how to proceed. RD has made TPN recomendations if needed to restart. Pt's brother/gumaro Wynn updated via phone. He was made aware that insurance denied ltac request but an expidited appeal has been submitted. [facility] is also being updated and is committed to taking care of him once he is at a skilled level of care. Pt continues on 3 iv atbs and with complex wound care. Pt's brother to updated pt's mother Kala as well. Will reassess Monday. [place] following up on the appeal.
[2021-01-01 15:50] VITALS: BP 103/51
[2021-01-01 16:00] VITALS: BP 103/51
[2021-01-01 20:15] VITALS: BP 100/55
[2021-01-02 04:45] VITALS: BP 100/58
[2021-01-02 05:32] LABS: ALBUMIN 1.6 g/dL (3.4-5.0); CALCIUM 8.1 mg/dL (8.5-10.1); CREATININE 0.4 mg/dL (0.7-1.3); MAGNESIUM 1.3 mg/dL (1.8-2.4); PHOSPHORUS 2.3 mg/dL (2.5-4.9); POTASSIUM 3.7 mmol/L (3.5-5.1); TOTAL BILIRUBIN 0.2 mg/dL (0.2-1.0); TOTAL PROTEIN 6.5 g/dL (6.4-8.2)
--- NOTE | 2021-01-02 06:30 | NUR ---
ASSUMED CARE AT 1900. PT C/O PAIN IN BACK AND LEGS, ESPECIALLY DURING TURNS AND WOUND CARE. GAVE MULTIPLE DOSES PRN PAIN MEDS OVERNIGHT. DRESSING AROUND G-TUBE REMAINED INTACT, DID NOT HAVE TO UTILIZE LIS. AROUND MIDNIGHT, HAD A BRIEF PERIOD WHERE HR DROPPED TO 40'S BEFORE RETURNING TO 60'S. OBTAINED ORDERS FOR POTASSIUM REPLACEMENT. STARTED ON CLINAMIX. NO OTHER CONCERNS, WILL CONTINUE TO MONITOR.
[2021-01-02 08:15] VITALS: BP 120/50
[2021-01-02 08:32] LABS: ABSOLUTE NEUTROPHILS 3.8 thou/uL (1.4-8.2); BASOPHILS 0.5 % (0.0-2.0); HEMATOCRIT 28.3 % (42.0-52.0); HEMOGLOBIN 8.9 gm/dL (14.0-18.0); LYMPHOCYTES 43.7 % (24.0-44.0); MCHC 31.4 g/dL (28.0-37.0); MCV 82.8 fL (80.0-100.0); MONOCYTES 6.4 % (1.0-8.0); PLATELET COUNT 628 thou/uL (150-400); POLYS 45.4 % (36.0-66.0); RBC 3.41 mil/uL (4.50-6.00); RDW 16.6 % (10.5-14.5); WBC 8.3 thou/uL (4.0-11.0)
[2021-01-02 12:44] VITALS: BP 92/57
[2021-01-02 16:18] VITALS: BP 123/70
--- NOTE | 2021-01-02 18:04 | NUR ---
RECEIVED THE PATIENT CONSCIOUS, ON ROOM AIR BREATHING SPONTANEOUSLY.WITH GTUBE TUBE INTACT AND COVERED WITH DRESSING, CLEAN DRY AND INTACT.WITH SANTIAGO CATHETER INTACT.WITH MULTIPLE PRESSURE WOUNDS COVERED WITH INTACT DRESSING.WITH RIGHT JUGULAR CV LINE INTACT.NOT IN DISTRESS.CONFIRMED WITH PHARMACY REGARDING PPN AND TPN, PER PHARMACIST WE CAN CONNECT A NEW PPN AT 1600H THEN SHIFT IT TO TPN AT 2000H.ALL NEEDS ATTENDED.TURNED PATIENT SCHEDULED.
[2021-01-02 19:54] VITALS: BP 130/75
[2021-01-03 03:59] VITALS: BP 127/54
[2021-01-03 06:11] LABS: EOSINOPHILS 3.4 % (0.0-3.0); HEMATOCRIT 27.1 % (42.0-52.0); HEMOGLOBIN 8.9 gm/dL (14.0-18.0); LYMPHOCYTES 27.3 % (24.0-44.0); MCH 26.6 pg (26.0-34.0); MCHC 32.8 g/dL (28.0-37.0); MCV 81.1 fL (80.0-100.0); MONOCYTES 5.9 % (1.0-8.0); PLATELET COUNT 610 thou/uL (150-400); POLYS 62.4 % (36.0-66.0); RBC 3.34 mil/uL (4.50-6.00); WBC 7.9 thou/uL (4.0-11.0)
[2021-01-03 06:31] LABS: CALCIUM 7.6 mg/dL (8.5-10.1); CREATININE 0.4 mg/dL (0.7-1.3); MAGNESIUM 1.5 mg/dL (1.8-2.4); PHOSPHORUS 1.9 mg/dL (2.6-4.7); POTASSIUM 3.7 mmol/L (3.5-5.1)
[2021-01-03 08:08] VITALS: BP 123/74
--- NOTE | 2021-01-03 08:11 | NUR ---
PT VERY NEEDY OVERNIGHT, CALLING OUT FREQUENTLY EVEN MINUTES AFTER BEING REPOSITIONED. GAVE PRN PAIN MEDS SOON AVAILABLE BUT PT CONTINUED TO C/O PAIN. DRESSING CHANGES COMPLETED THIS AM.
[2021-01-03 11:02] VITALS: BP 126/71
[2021-01-03 15:21] VITALS: BP 128/82
--- NOTE | 2021-01-03 18:28 | NUR ---
PT ALERT AND ORIENTED TIMES THREE WITH PERIODS OF CONFUSION. VSS, SR/BBB ON TELE. TPN INFUSING PER ORDER. SANTIAGO TO DD. G TUBE REMAINS CLAMPED MEDS ONLY. PT TOLERATES WELL. PT C/O PAIN PRN PAIN MEDICATIONS GIVEN WTH SOME RELEIF. DRESSING CHANGED WITH WOUND CARE DR. PT TURNED FREQUENTLY THIS SHIFT. WILL CONTINUE TO MONITOR.
[2021-01-03 20:00] VITALS: BP 134/86
[2021-01-04 04:30] VITALS: BP 127/85
[2021-01-04 08:31] LABS: CALCIUM 7.8 mg/dL (8.5-10.1); CREATININE 0.4 mg/dL (0.7-1.3); MAGNESIUM 2.7 mg/dL (1.8-2.4); PHOSPHORUS 2.4 mg/dL (2.6-4.7); POTASSIUM 3.9 mmol/L (3.5-5.1)
[2021-01-04 09:30] VITALS: BP 123/83
--- NOTE | 2021-01-04 10:23 | NUR ---
Recommend increase tpn rate to final goal of 75ml/hr until jtube replaced and tube feed can be resumed
[2021-01-04 12:25] VITALS: BP 113/69
--- NOTE | 2021-01-04 12:45 | NUR ---
Discussed during los, possible ready for dc back to [facility] tomorrow. Cm call facility, left message and requested they seek auth for skilled rehab.
[2021-01-04 16:48] VITALS: BP 125/80
[2021-01-04 19:30] VITALS: BP 122/71
[2021-01-05 03:45] VITALS: BP 108/72
[2021-01-05 07:09] LABS: CALCIUM 8.1 mg/dL (8.5-10.1); CREATININE 0.4 mg/dL (0.7-1.3); MAGNESIUM 1.9 mg/dL (1.8-2.4); PHOSPHORUS 2.3 mg/dL (2.6-4.7); POTASSIUM 4.3 mmol/L (3.5-5.1)
--- NOTE | 2021-01-05 07:17 | NUR ---
REFUSED TO BE REPOSITIONED AT TIMES,ALWAYS CALLING FOR HELP,MEDS GIVEN.MONITOR SHOWS SR W/ BBB.POC CONTINUED.
[2021-01-05 08:00] VITALS: BP 116/72
--- NOTE | 2021-01-05 09:40 | NUR ---
LTACH AUTH 01/04/21 FROM [facility] AND RECEIVED FAXED AUTH. UPDATED [facility] FROM [facility] WHO STATES SHE WILL CHECK BED AVAILABILITY AND UPDATE FILTER FILLER 01/05/21. HOSPITALIST UPDATED. EL
--- NOTE | 2021-01-05 09:48 | NUR ---
Per GI KATRIN Mcdonnell, restart TF and start taper off tpn. New goal TF 55ml/hr.
--- NOTE | 2021-01-05 10:40 | NUR ---
Updates faxed to [facility], discussed during los ready for dc. Cm left message with pt brother yoel. Chart copy already requested yesterday. Bedside nurse to call report to [phone] prior to dc. CM still waiting to found out if ltac has bed open today. Per ID he will requirer cont all 3 ABX for 3 and 1/2 more weeks, micafungi, meropenem and vancomycin, weekly cbc, bmp and vanco trough.
[2021-01-05 12:00] VITALS: BP 116/62
[2021-01-05] MEDS ORDERED: MIDODRINE HCL 55 M1 PER TUBE (13:53)
[2021-01-05] MEDS ORDERED: METOCLOPRA10 MG/101 PER TUBE (13:53)
[2021-01-05] MEDS ORDERED: GENTAMICIN SULF15 GM TOP (13:53)
[2021-01-05] MEDS ORDERED: METOPROLOL TART25 MG PER TUBE (13:53)
[2021-01-05] MEDS ORDERED: MIRALAX17 GM PO (13:53)
[2021-01-05] MEDS ORDERED: TYLENOL325 MG PER TUBE (13:53)
[2021-01-05] MEDS ORDERED: PROBIOTIC1 EAC7 PO (14:04)
[2021-01-05] MEDS ORDERED: VANCOMYCIN HCL1 G1 IV (14:04)
[2021-01-05] MEDS ORDERED: MYCAMINE50 MG IVPB (14:04)
[2021-01-05] MEDS ORDERED: MEROPENEM-1000 MG/50 IVPB (14:04)
[2021-01-05 16:53] VITALS: BP 121/75
[2021-01-05 20:20] VITALS: BP 110/65
[2021-01-05 20:21] VITALS: BP 110/65
--- NOTE | 2021-01-05 20:43 | NUR ---
ASSUMED PT CARE AT 1900, PT IS AWAKE, ALERT AND ORIENTED, SR/BBB ON TELE, ASSESSMENTS CHARTED, C/O BACK PAIN, TYL GIVEN, OTHER MEDS GIVEN PER SLOAN, RAIZA UPDATED ON PT DC STATUS, PT PICKED UP BY [facility] AT 2034 WITH ALL BELONGINGS, PAPER WORK HANDED TO [facility]
== END 2021-01-05 20:35 | DRG 264 ==
LOC: ER 15:02 → 2N 18:47 → EROBS 18:47 → 2N 22:10
PROVIDERS: Anesthesiology; Emergency Medicine; Hospitalist; Internal Medicine; Nurse Practitioner; Specialist; ADMIT Hospitalist; ATTEND Hospitalist
PROC: 0WH Anatomical Regions, General, Insertion (ICD-10-PCS; principal; 2020-12-15)
PROC: 0JPT3XZ Removal of Tunneled Vascular Access Device from Trunk Subcutaneous Tissue and Fascia, Percutaneous Approach (ICD-10-PCS; 2020-12-16)
PROC: 02PAX3Z Removal of Infusion Device from Heart, External Approach (ICD-10-PCS; 2020-12-16)
PROC: 0KB60ZZ Excision of Left Shoulder Muscle, Open Approach (ICD-10-PCS; 2020-12-21)
PROC: 0JBC0ZZ Excision of Pelvic Region Subcutaneous Tissue and Fascia, Open Approach (ICD-10-PCS; 2020-12-21)
PROC: 0QB30ZZ Excision of Left Pelvic Bone, Open Approach (ICD-10-PCS; 2020-12-21)
PROC: 0JBR0ZZ Excision of Left Foot Subcutaneous Tissue and Fascia, Open Approach (ICD-10-PCS; 2020-12-21)
PROC: 0QB10ZZ Excision of Sacrum, Open Approach (ICD-10-PCS; 2020-12-21)
PROC: 30233N1 Transfusion of Nonautologous Red Blood Cells into Peripheral Vein, Percutaneous Approach (ICD-10-PCS; 2020-12-22)
PROC: 0DP6XUZ Removal of Feeding Device from Stomach, External Approach (ICD-10-PCS; 2020-12-22)
PROC: 0DH68UZ Insertion of Feeding Device into Stomach, Via Natural or Artificial Opening Endoscopic (ICD-10-PCS; 2020-12-22)
PROC: 0DP6XUZ Removal of Feeding Device from Stomach, External Approach (ICD-10-PCS; 2020-12-30)
PROC: 0DHA8UZ Insertion of Feeding Device into Jejunum, Via Natural or Artificial Opening Endoscopic (ICD-10-PCS; 2020-12-30)
DX: T80.211A Bloodstream infection due to central venous catheter, initial encounter (principal); A41.1 Sepsis due to other specified staphylococcus; L89.224 Pressure ulcer of left hip, stage 4; L89.214 Pressure ulcer of right hip, stage 4; L89.124 Pressure ulcer of left upper back, stage 4; L89.154 Pressure ulcer of sacral region, stage 4; L89.623 Pressure ulcer of left heel, stage 3; E43 Unspecified severe protein-calorie malnutrition; G82.50 Quadriplegia, unspecified; G92 Toxic encephalopathy; R64 Cachexia; N17.9 Acute kidney failure, unspecified; S37.30XA Unspecified injury of urethra, initial encounter; I50.22 Chronic systolic (congestive) heart failure; K94.23 Gastrostomy malfunction; I42.9 Cardiomyopathy, unspecified; K56.609 Unspecified intestinal obstruction, unspecified as to partial versus complete obstruction; N39.0 Urinary tract infection, site not specified; K56.7 Ileus, unspecified; Z66 Do not resuscitate; D64.9 Anemia, unspecified; R13.10 Dysphagia, unspecified; I95.89 Other hypotension; R53.81 Other malaise; E87.6 Hypokalemia; I44.7 Left bundle-branch block, unspecified; R62.7 Adult failure to thrive; L97.529 Non-pressure chronic ulcer of other part of left foot with unspecified severity; R31.9 Hematuria, unspecified; R33.9 Retention of urine, unspecified; N31.9 Neuromuscular dysfunction of bladder, unspecified; X58.XXXA Exposure to other specified factors, initial encounter; Y93.89 Activity, other specified; Y92.89 Other specified places as the place of occurrence of the external cause; Y99.8 Other external cause status; Z86.73 Personal history of transient ischemic attack (TIA), and cerebral infarction without residual deficits; Z79.899 Other long term (current) drug therapy; Z79.82 Long term (current) use of aspirin
CPT/HCPCS: 10081; 50010; 50101; 50386; 50403; 57119; 57120; 62110; 62900; 70005